=== PATIENT | male | born 1955 ===

== ENCOUNTER 2024-08-09 13:28 | Inpatient (IN) | payer OTHER, SELFPAY ==
[2024-08-09] VITALS (7 sets, daily range): BP systolic 111–164; BP diastolic 68–82; PULSE 62–84; RESP 16–20; TEMP 36.2; O2SAT 94–98; BMI 31.1
--- NOTE | ~2024-08-09 | XR_ITS ---
EXAMINATION: XR CHEST CLINICAL INFORMATION: weakness COMPARISON: None available. TECHNIQUE: AP view of the chest was obtained. FINDINGS: Mildly elevated left hemidiaphragm, with mild left base scarring/atelectasis. The cardiac, hilar, and mediastinal contours are normal. The lungs are otherwise clear bilaterally. Low lung volumes. No pneumothorax or effusion. No focal osseous or soft tissue abnormality. Degenerative changes in the shoulder joints and spine. XR/XR chest 1V IMPRESSION: 1. Mildly elevated left hemidiaphragm with mild left base scarring/atelectasis. Low lung volumes. Otherwise, no active pulmonary disease. Electronically signed by: Alexander Miramontes MD 08/09/2024 02:30 PM EDT RP
--- NOTE | ~2024-08-09 | XR_ITS ---
EXAMINATION: XR FOOT, RIGHT CLINICAL INFORMATION: redness, swelling, fresh amputation COMPARISON: 08/03/2016. TECHNIQUE: AP, lateral, and oblique views of the right foot. FINDINGS: Limited exam due to suboptimal positioning (patient was unable to tolerate). Resection of the second and third digits at the MTP levels. Blunting of the second and third metatarsal heads, likely postsurgical. Healed angulated fractures of the fourth and fifth metatarsals. No acute fracture or dislocation. No suspicious bone lesion. Early Charcot appearing joint involving the midfoot with spurring, joint space narrowing, sclerosis, and mild fragmentation. There is a moderate-sized plantar and small dorsal calcaneal spur. There is soft tissue swelling at the resection sites, and along the dorsum of the forefoot. There are vascular calcifications in the soft tissues. No soft tissue emphysema. XR/XR foot RT min 3V IMPRESSION: 1. Post operative resection of the second and third digits at the MTP levels. No definite acute radiographic changes of osteomyelitis. 2. Healed angulated fractures fourth and fifth metatarsals. 3. Early Charcot changes of the midfoot. Electronically signed by: Alexander Miramontes MD 08/09/2024 02:36 PM EDT
--- NOTE | ~2024-08-09 | XR_ITS ---
CLINICAL HISTORY: post op infection r o osteo 2 view right foot Comparison: CR/PA/SR - XR FOOT RT MIN 3V - 08/09/24 14:14 EDT Findings: No fractures or dislocations. Extensive midfoot osteoarthritis with midfoot collapse. Multiple subluxations are present. No ankle effusion. No radiopaque foreign body. Vascular calcifications are present. IMPRESSION: 1. No acute findings. 2. Charcot arthropathy. This document has been electronically signed by: Arias Alejandro MD on 08/15/2024 17:50:54
--- NOTE | 2024-08-09 14:05 | ED_ITS ---
HPI - General Adult General Chief complaint: Behavioral Concerns Stated complaint: Sec 12, 10mg versed given, aggressive/combative Time Seen by Provider: 08/09/24 13:45 Source: EMS and old records reviewed Limitations: altered mental status History of Present Illness ED Provider: BALJIT GUAMAN narrative: 69 yo male with PMH of DM, hypothyroidism, cognitive impairment, dysphagia, HLD, deperssion, BRENNA, charcot's joint both feet who has been at [facility] I suspect post his amputation - it is unclear where this was done. He reportedly was aggressive and agitated threatening staff at this time his foot wound is infected appearing, he has a dow in place. Due to his agitation EMS gave 10mg IM versed en route. He really isn't able to participate in exam at all. MD complaint: agitation Onset (ago): day(s) (1) Radiation: non-radiation Severity: moderate Relieving factors: none Exacerbating factors: none Associated symptoms: denies other symptoms Treatments prior to arrival: other (IM versed) Related Data Home Medications ?Medication ?Instructions ?Recorded ?Confirmed Lactobacillus rhamnosus GG 10 1 cap PO BID 08/09/24 08/09/24 billion cell capsule (Culturelle) acetaminophen 325 mg tablet 650 mg PO Q6H PRN pain or fever 08/09/24 08/09/24 amitriptyline 50 mg tablet 50 mg PO BEDTIME 08/09/24 08/09/24 aspirin 81 mg capsule 81 mg PO DAILY 08/09/24 08/09/24 bupropion HCl 300 mg 24 hr tablet, 300 mg PO QAM 08/09/24 08/09/24 extended release calcium carbonate (Calcium 600) 600 mg PO BID 08/09/24 08/09/24 ferrous sulfate 325 mg (65 mg 325 mg PO DAILY 08/09/24 08/09/24 iron) tablet gabapentin 800 mg tablet 800 mg PO BID 08/09/24 08/09/24 insulin glargine 100 unit/mL (3 26 unit subcut BEDTIME 08/09/24 08/09/24 mL) subcutaneous pen (Lantus Solostar U-100 Insulin) lamotrigine 100 mg tablet 100 mg PO BID 08/09/24 08/09/24 levothyroxine 50 mcg tablet 50 mcg PO DAILY 08/09/24 08/09/24 meloxicam 15 mg tablet 15 mg PO DAILY 08/09/24 08/09/24 miconazole nitrate 2 % topical 1 appl topical BID 08/09/24 08/09/24 ointment rosuvastatin 20 mg tablet 20 mg PO DAILY 08/09/24 08/09/24 sennosides 8.6 mg tablet (senna) 8.6 mg PO DAILY PRN Constipation 08/09/24 08/09/24 sodium phosphates 19 gram-7 118 ml FL DAILY PRN Constipation 08/09/24 08/09/24 gram/118 mL enema (Fleet Enema) thiamine HCl (vitamin B1) 100 mg 100 mg PO DAILY 08/09/24 08/09/24 tablet trazodone 50 mg tablet 25 mg PO BID 08/09/24 08/09/24 trazodone 50 mg tablet 50 mg PO BEDTIME 08/09/24 08/09/24 Allergies Allergy/AdvReac Type Severity Reaction Status Date / Time No Known Allergies Allergy Verified 08/09/24 13:58 Review of Systems 2 Review of Systems: ROS unable to be obtained due to altered mental status [facility] Past Medical History Source: old records reviewed Medical History Hypothyroidism Amputation toe Charcot joint of ankle Cognitive impairment Hyperlipidemia Diabetes Social History Social History Alcohol intake: never Physical Exam ED Vital Signs: Vital Signs - 24 hr 08/12/24 03:29 08/12/24 13:28 Temperature 97.6 F 98.1 F Pulse Rate 74 66 Respiratory Rate 12 17 Blood Pressure 138/55 L 143/69 H Pulse Oximetry 93 96 Oxygen Delivery Method Room Air Room Air BMI result Body Mass Index 31.1 Appearance: Somnolent. No acute distress. Eyes: Pupils equal, round and reactive to light. ENT: Pharynx normal. Neck: Normal inspection. Neck supple. CVS: Normal heart rate and rhythm. Pulses normal. Respiratory: No respiratory distress. Breath sounds normal. Abdomen: Soft and nontender. Skin: Skin warm and dry. Normal skin color. Extremities: No lower extremity edema. 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 He has been refusing care and medications. She notes he wanted hospice. She is going to come down and sign a MOLST and we will involve CM and hospice. She was trying to work on this with [facility]. She was not even aware he was sent to our facility today 08/09/2024 at 18:56 hours,Dr. Ajay Horton's note Continue physician observation I assumed care of this patient from my colleague at 17:00 hours. The patient's had is the patient's healthcare proxy and the wants to pursue hospice care at this point. I did fill out a MOLST form with the and the patient was a DNR/ DNI/comfort measures only. The patient has been seen by case management. Case management states that the patient's care facility will not accept him back since they are unable to manage him and secondary to his violent outburst.. Case management is going to assist the in getting [facility] and a hospice referral. The patient will need to stay in the emergency department until these steps can be accomplished. The patient is agitated, he seems to be hallucinating and thinks that people are on his property. He believes that his is . Therefore I ordered Haldol 5 mg IV, Ativan 1 mg IV and Benadryl 50 mg IV. The plan will be to use the IV medications to help control his agitation and his behavior. Also, the patient can get IV pain medications if he appears to be in pain.Patient will remain in the emergency department until detention hospice disposition can be obtained. 4:55pm: Physicians observation continued. Patient is not any distress. Patient awaiting hospice detention disposition. Reevaluation(s) Reevaluation #1: 1515-Hospice met with patient and patient does not qualify for hospice level of care. I spoke to the and she is agreeable. I spoke to case management. They will plan to have the patient re-evaluated by Physical therapy and discharged back to [facility] if they accept the patient. I did discuss with the that she should have a goals of care meeting at the facility with a provider there. She is interested in palliative care. I asked Sondra LOZANO to verify patient medications. I cancelled the ENERGY DIRECTOR orders. Medications Administered Generic Name Dose Route Start Last Admin Trade Name Freq PRN Reason Stop Dose Admin Docusate Sodium 100 mg 08/09/24 21:00 08/11/24 20:29 Docusate Sodium 100 Mg Capsule PO 100 mg BEDTIME KENNY Administration Discontinued Medications Generic Name Dose Route Start Last Admin Trade Name Freq PRN Reason Stop Dose Admin Diphenhydramine HCl 50 mg 08/09/24 18:55 08/09/24 19:04 Diphenhydramine Hcl 50 Mg/Ml Vial IVPUSH 08/09/24 18:56 50 mg ONCE STA Administration Haloperidol Lactate 5 mg 08/09/24 18:55 08/09/24 19:04 Haloperidol Lactate 5 Mg/Ml Vial IVPUSH 08/09/24 18:56 5 mg ONCE ONE Administration Piperacillin Sod/Tazobactam 50 mls @ 100 mls/hr 08/09/24 14:07 08/09/24 15:39 Sod 3.375 gm/ Sodium Chloride IV 08/09/24 14:36 Infused ONCE ONE Infusion Levofloxacin 500 mg in 100 mls @ 100 mls/hr 08/09/24 15:47 08/09/24 16:56 Levaquin IV 08/09/24 16:46 Not Given ONCE ONE Lorazepam 1 mg 08/09/24 18:55 08/09/24 19:04 Lorazepam 2 Mg/Ml Vial IVPUSH 08/09/24 18:56 1 mg STAT STA Administration Medical Decision Making Medical Decision Making MDM Narrative: 69 yo male with PMH of DM, hypothyroidism, cognitive impairment, dysphagia, HLD, deperssion, BRENNA, charcot's joint both feet , code status DNR - he comes in today after being at [facility] for post operative R 2nd/3rd toe amputations he reportedly was very angry today and was yelling to take people out at facility. He was ramming his wheelchair at things - no head trauma reported at this time labs, xray of foot that is dehisced yellow drainage and red - infl markers IV zosyn. Differential Diagnosis Differential Diagnoses: The differential diagnosis associated with the presentation includes toxic or metabolic encephalopathy, foot wound, cognitive impairment Admission/Observation Consideration of admission/observation: Escalation of care including admission/observation considered observation started for case management and hospice. Consult Healthcare Provider Management of the patient was discussed with: Blacksmith Apprentice Lab Data MDM Lab Attestation statement: I reviewed the patient's lab results. 08/09/24 14:40 08/09/24 14:40 Labs: Lab Results 08/09/24 08/09/24 08/09/24 Range/Units 14:39 14:40 14:41 WBC 9.5 (4.8-10.8) X10*3/uL RBC 3.97 L (4.60-5.80) X10*6/uL Hgb 10.7 L (14.0-18.0) g/dl Hct 33.2 L (42.0-52.0) % MCV 83.6 (80.0-98.0) fL MCH 27.0 (27.0-33.0) pg MCHC 32.2 (31.0-36.0) g/dl RDW 14.5 (11.0-16.0) % Plt Count 318 (160-400) X10*3/uL MPV 9.8 (9.4-12.4) fL Immature Gran % (Auto) 0.3 (0.0-0.4) % Neut % (Auto) 70.9 (45-73) % Lymph % (Auto) 17.9 L (20-40) % [place] % (Auto) 5.0 (2-11) % Eos % (Auto) 5.4 H (0-4) % Baso % (Auto) 0.5 (0-2) % Lymph # (Auto) 1.7 (1.2-4.9) X10*3/uL [place] # (Auto) 0.5 (0.1-1.2) X10*3/uL Eos # (Auto) 0.5 H (0.0-0.4) X10*3/uL Baso # (Auto) 0.1 (0.0-0.2) X10*3/uL Abs Immat Gran (auto) 0.03 (0.00-0.03) X10*3/uL Absolute Neuts (auto) 6.7 (2.0-8.3) x10*3/uL Absolute Nucleated RBC 0.000 (0.0-0.012) X10*3/uL Nucleated RBC % (auto) 0.0 (0.0-0.2) /100WBC ESR 39 H (0-15) MM/HR VBG pH (7.32-7.43) VBG pCO2 mmHg VBG pO2 mmHg VBG HCO3 (22-26) mmol/L VBG O2 Saturation % VBG Base Excess mmol/L Sodium 144 (135-145) mmol/L Potassium 4.1 (3.3-5.1) mmol/L Chloride 108 (96-108) mmol/L Carbon Dioxide 30 H (22-29) mmol/L Anion Gap 10 L (12-20) BUN 13 (9-16) mg/dL Creatinine 0.70 (0.5-1.4) mg/dL Estim Creat Clear Calc 127.7 Estimated GFR > 60 Random Glucose 83 (60-115) mg/dL Lactic Acid 0.8 (0.5-2.0) mmol/L Calcium 9.4 (8.4-10.2) mg/dL Magnesium 1.9 (1.6-2.6) mg/dL Total Bilirubin 0.3 (0.0-1.0) mg/dL Direct Bilirubin 0.2 (0.0-0.5) mg/dL AST 27 (5-37) U/L ALT 10 (0-40) U/L Alkaline Phosphatase 87 (39-117) U/L Ammonia 25 (13-55) umol/L C-Reactive Protein 0.84 H (< or = 0.50) mg/dL B-Natriuretic Peptide 68 (<100) pg/mL Total Protein 6.6 (6.5-8.0) g/dL Albumin 3.7 (3.5-5.0) g/dL Procalcitonin 0.04 ng/mL Urine Color Urine Appearance Urine pH (5.0-9.0) Ur Specific [place] (1.005-1.025) Urine Protein (Neg-Trace) mg/dL Urine Glucose (UA) (Negative) mg/dL Urine Ketones (Negative) mg/dL Urine Blood (Negative) Urine Nitrite (Negative) Ur Leukocyte Esterase (Negative) Urine RBC (0-2) /HPF Urine WBC (0-5) /HPF Ur Squamous Epith Cells (0-2) /HPF Other Crystals Urine Bacteria (None Seen) Hyaline Casts (0-2) /LPF Influenza Type A (PCR) NEGATIVE (Negative) Influenza Type B (PCR) NEGATIVE (Negative) RSV RNA Qual (PCR) NEGATIVE (Negative) SARS-CoV-2 RNA (RT-PCR) POSITIVE A (Negative) 08/09/24 08/09/24 Range/Units 14:50 14:59 WBC (4.8-10.8) X10*3/uL RBC (4.60-5.80) X10*6/uL Hgb (14.0-18.0) g/dl Hct (42.0-52.0) % MCV (80.0-98.0) fL MCH (27.0-33.0) pg MCHC (31.0-36.0) g/dl RDW (11.0-16.0) % Plt Count (160-400) X10*3/uL MPV (9.4-12.4) fL Immature Gran % (Auto) (0.0-0.4) % Neut % (Auto) (45-73) % Lymph % (Auto) (20-40) % [place] % (Auto) (2-11) % Eos % (Auto) (0-4) % Baso % (Auto) (0-2) % Lymph # (Auto) (1.2-4.9) X10*3/uL [place] # (Auto) (0.1-1.2) X10*3/uL Eos # (Auto) (0.0-0.4) X10*3/uL Baso # (Auto) (0.0-0.2) X10*3/uL Abs Immat Gran (auto) (0.00-0.03) X10*3/uL Absolute Neuts (auto) (2.0-8.3) x10*3/uL Absolute Nucleated RBC (0.0-0.012) X10*3/uL Nucleated RBC % (auto) (0.0-0.2) /100WBC ESR (0-15) MM/HR VBG pH 7.34 (7.32-7.43) VBG pCO2 57 mmHg VBG pO2 28 mmHg VBG HCO3 31 H (22-26) mmol/L VBG O2 Saturation 31.0 % VBG Base Excess 5.0 mmol/L Sodium (135-145) mmol/L Potassium (3.3-5.1) mmol/L Chloride (96-108) mmol/L Carbon Dioxide (22-29) mmol/L Anion Gap (12-20) BUN (9-16) mg/dL Creatinine (0.5-1.4) mg/dL Estim Creat Clear Calc Estimated GFR Random Glucose (60-115) mg/dL Lactic Acid (0.5-2.0) mmol/L Calcium (8.4-10.2) mg/dL Magnesium (1.6-2.6) mg/dL Total Bilirubin (0.0-1.0) mg/dL Direct Bilirubin (0.0-0.5) mg/dL AST (5-37) U/L ALT (0-40) U/L Alkaline Phosphatase (39-117) U/L Ammonia (13-55) umol/L C-Reactive Protein (< or = 0.50) mg/dL B-Natriuretic Peptide (<100) pg/mL Total Protein (6.5-8.0) g/dL Albumin (3.5-5.0) g/dL Procalcitonin ng/mL Urine Color Dark Yellow Urine Appearance Turbid Urine pH 5.0 (5.0-9.0) Ur Specific [place] 1.025 (1.005-1.025) Urine Protein 100 (2+) H (Neg-Trace) mg/dL Urine Glucose (UA) Negative (Negative) mg/dL Urine Ketones 15 (Negative) mg/dL Urine Blood Large (3+) H (Negative) Urine Nitrite Positive H (Negative) Ur Leukocyte Esterase Large (3+) H (Negative) Urine RBC >20 H (0-2) /HPF Urine WBC >50 H (0-5) /HPF Ur Squamous Epith Cells 6-10 (0-2) /HPF Other Crystals Present Urine Bacteria 4+ (None Seen) Hyaline Casts 11-20 (0-2) /LPF Influenza Type A (PCR) (Negative) Influenza Type B (PCR) (Negative) RSV RNA Qual (PCR) (Negative) SARS-CoV-2 RNA (RT-PCR) (Negative) Independent Interpretation I performed an independent interpretation of an: EKG and Plain X-Ray (no abnormal finding) Interpretation: Rate: 66 Rhythm: NSR 1st degree AVB [place]: left Normal P waves. 1st degree AVB Normal QRS complex. ST T wave : flat t waves inferior but no JESSIKA qTC: 434 prior studies: no prior The study has been interpreted contemporaneously by me. . Radiology Impression Discussion of test interpretation with radiology: I have reviewed the radiologist's reading. Discharge Plan Discharge Clinical Impression: Encephalopathy, Acute UTI, Dehiscence of surgical wound Patient Disposition: Still a Patient Prescriptions: No Action sennosides [senna] 8.6 mg Tablet 8.6 mg PO DAILY PRN (Reason: Constipation) acetaminophen 325 mg Tablet 650 mg PO Q6H MDD 3g PRN (Reason: pain or fever) trazodone 50 mg tablet 50 mg PO BEDTIME trazodone 50 mg tablet 25 mg PO BID meloxicam 15 mg tablet 15 mg PO DAILY thiamine HCl (vitamin B1) 100 mg Tablet 100 mg PO DAILY amitriptyline 50 mg tablet 50 mg PO BEDTIME calcium carbonate [Calcium 600] 600 mg calcium (1,500 mg) Tablet 600 mg PO BID gabapentin 800 mg tablet 800 mg PO BID miconazole nitrate 2 % Ointment 1 appl TOPICAL BID Rx Instructions: apply to scrotum levothyroxine 50 mcg tablet 50 mcg PO DAILY ferrous sulfate 325 mg (65 mg iron) Tablet 325 mg PO DAILY Fleet Enema 19-7 gram/118 mL Enema 118 ml FL DAILY PRN (Reason: Constipation) Culturelle 10 billion cell Capsule 1 cap PO BID lamotrigine 100 mg tablet 100 mg PO BID rosuvastatin 20 mg tablet 20 mg PO DAILY bupropion HCl 300 mg tablet extended release 24 hr 300 mg PO QAM insulin glargine [Lantus Solostar U-100 Insulin] 100 unit/mL (3 mL) insulin pen 26 unit subcut BEDTIME aspirin 81 mg Capsule 81 mg PO DAILY Print Language: Japanese
--- NOTE | 2024-08-09 14:05 | ECG_ITS ---
Test Reason : CHECK QTC Blood Pressure : */* mmHG Vent. Rate : 66 BPM Atrial Rate : 66 BPM P-R Int : 224 ms QRS Dur : 94 ms QT Int : 414 ms P-R-T Axes : 46 -14 18 degrees QTcB Int : 434 ms Sinus rhythm with 1st degree A-V block Low voltage QRS Borderline ECG No previous ECGs available Referred By: Nolvia Dorsey Electronically Signed By: EVELINE BARRAZA MD
[2024-08-09 14:51] LABS: MANUAL DIFF FLAG NO
[2024-08-09 14:53] LABS: Basophils Absolute Auto 0.1 X10*3/uL (0.0-0.2); Basophils Percent Auto 0.5 % (0-2); Eosinophils Absolute Auto 0.5 X10*3/uL (0.0-0.4); Eosinophils Percent Auto 5.4 % (0-4); Hematocrit 33.2 % (42.0-52.0); Hemoglobin 10.7 g/dl (14.0-18.0); Imm Gran Abs Auto 0.03 X10*3/uL (0.00-0.03); Imm Gran Pct Auto 0.3 % (0.0-0.4); Lymphocytes Absolute Auto 1.7 X10*3/uL (1.2-4.9); Lymphocytes Percent Auto 17.9 % (20-40); Mean Corpuscular HGB Conc 32.2 g/dl (31.0-36.0); Mean Corpuscular Volume 83.6 fL (80.0-98.0); Mean Platelet Volume 9.8 fL (9.4-12.4); Monocytes Absolute Auto 0.5 X10*3/uL (0.1-1.2); Neutrophils Absolute Auto 6.7 x10*3/uL (2.0-8.3); Neutrophils Percent Auto 70.9 % (45-73); Platelet Count 318 X10*3/uL (160-400); Red Blood Count 3.97 X10*6/uL (4.60-5.80); Red Cell Distribution Width 14.5 % (11.0-16.0); White Blood Count 9.5 X10*3/uL (4.8-10.8)
[2024-08-09 14:55] LABS: Venous Blood Gas Refer to POC result
[2024-08-09 14:56] LABS: VBG HCO3 31 mmol/L (22-26); VBG pCO2 57 mmHg; VBG pH 7.34 (7.32-7.43); VBG pO2 28 mmHg
[2024-08-09 14:57] LABS: Ammonia 25 umol/L (13-55)
[2024-08-09] MEDS: Piperacillin Sodium/Tazobactam 3.375 GM in 0.9 % Sodium Chloride 50 ML IV (15:03)
[2024-08-09 15:04] LABS: Lactic Acid 0.8 mmol/L (0.5-2.0)
[2024-08-09 15:10] LABS: Appearance Urine Turbid; Color Urine Dark Yellow; Glucose Urine UA Negative (Negative); Leukocyte Esterase Urine Large (3+) (Negative); Nitrite Urine Positive (Negative); Specific Gravity - Urine 1.025 (1.005-1.025); UMIC TRIGGER UACC YES; Urine Blood Large (3+) (Negative); Urine Ketones 15 mg/dL (Negative); Urine Protein 100 (2+) mg/dL (Neg-Trace)
[2024-08-09 15:11] LABS: B Type Natriuretic Peptide 68 pg/mL (<100)
[2024-08-09 15:12] LABS: Alanine Aminotransferase 10 U/L (0-40); Albumin Level 3.7 g/dL (3.5-5.0); Alkaline Phosphatase 87 U/L (39-117); Anion Gap 10 (12-20); Aspartate Amino Transferase 27 U/L (5-37); Bilirubin Direct 0.2 mg/dL (0.0-0.5); Bilirubin Total 0.3 mg/dL (0.0-1.0); Blood Urea Nitrogen 13 mg/dL (9-16); C Reactive Protein 0.84 mg/dL (< or = 0.50); Calcium 9.4 mg/dL (8.4-10.2); Carbon Dioxide 30 mmol/L (22-29); Chloride 108 mmol/L (96-108); Creatinine Clr Calc Pharmacy 127.7; Estimated Glomerular Filt Rate > 60; Glucose Random 83 mg/dL (60-115); Magnesium 1.9 mg/dL (1.6-2.6); Potassium 4.1 mmol/L (3.3-5.1); Sodium 144 mmol/L (135-145); Total Protein 6.6 g/dL (6.5-8.0)
[2024-08-09 15:26] LABS: Procalcitonin 0.04 ng/mL
[2024-08-09 15:27] LABS: Erythrocyte Sedimentation Rate 39 MM/HR (0-15)
[2024-08-09 15:41] LABS: Bacteria Urine 4+ (None Seen); Other Crystals Urine Present; RBC Urine >20 /HPF (0-2); UACC Culture Trigger YES; WBC Urine >50 /HPF (0-5)
[2024-08-09 15:47] LABS: Influenza A PCR NEGATIVE (Negative); Influenza B PCR NEGATIVE (Negative); Resp Syncy Virus RNA Qual PCR NEGATIVE (Negative); SARS COV2 PCR INHOUSE POSITIVE (Negative)
--- NOTE | 2024-08-09 16:56 | PC.NURSE ---
levofloxacin not given - per Dr. Dorsey hold on abx.
[2024-08-09] MEDS: diphenhydrAMINE HCL 50 MG/ML VIAL IVPUSH (19:04)
[2024-08-09] MEDS: LORazepam 2 MG/ML VIAL 1 MG IVPUSH (19:04)
[2024-08-09] MEDS: Haloperidol Lactate 5 MG/ML VIAL IVPUSH (19:04)
--- NOTE | 2024-08-09 19:10 | PC.NURSE ---
Pt. medicated because of agitation and delirium, informed the family whom is at bedside that pt. will be monitored and plan of care provided.
--- NOTE | 2024-08-09 19:13 | MHC.CM.ED ---
Pt arrived from [facility] on a section 12 for increasing aggression and threatening behaviors. He was at [facility] for STR. Pt is confused at baseline. He has been refusing all medications. Currently thinks he is home. Yelling and swearing at staff. Trying to get OOB. Per medical record from [facility], HCP is invoked. HCP is not on file. HCP/ Quiana Ponce ([phone]). Per medical record from [facility], patient is a DNR/DNI. is requesting hospice in a facility, as she cannot care for him. . Quiana requests patient be made PIPEMAN. Molst completed with invoked HCP Quiana and . states there are no funds for LTC. Referral made to [facility] financial services to complete MH application. CM stressed importance of obtaining needed documents JAVIER, as patient will not be able to be placed in LTC without a payor source. Invoked HCP/ is aware that patient will not be admitted to hospital as he does not meet inpatient criteria. Referral made to [facility]. Referral to [facility] for informational meeting. Unsure at this time if [facility] will accept patient back to facility
--- NOTE | 2024-08-09 20:12 | PHA.MEDREC ---
Addendum entered by Jenaro Arriola [facility] 08/09/24 20:16: med rec reviewed Original Note: Pharmacy Consult ? Medication Reconciliation Pharmacy has completed the medication reconciliation. Used list from [facility].
--- NOTE | 2024-08-09 22:46 | PC.NURSE ---
Report given to MARTA Jacob.
--- NOTE | 2024-08-10 00:47 | PC.NURSE ---
this rn assumed care at 2300. pt resting in stretcher, noted to be 80% on room air, per , place pt on oxymax veronique to pt mouth breathing. pt sating 100% on oxymax. pt has sitter in place for safety. no hospital beds available at this time, pt given GOSPEL SINGER blanket.
[2024-08-10 00:48] VITALS: PULSE 65; RESP 17; O2SAT 100
[2024-08-10 01:40] VITALS: BP 146/76; PULSE 61; RESP 12; O2SAT 94
--- NOTE | 2024-08-10 02:38 | PC.NURSE ---
pt placed onto hospital bed for comfort at this time, international accounting manager remains in place as well as 1:1 sitter.
[2024-08-10 06:00] VITALS: PULSE 63; RESP 20; O2SAT 98
--- NOTE | 2024-08-10 06:34 | PC.NURSE ---
pt remains resting in hospital bed, sating 99% on oxy max at this time, pt does not appear to be in any pain at this time. sitter at bedside.
--- NOTE | 2024-08-10 12:00 | MHC.CM.ED ---
Patient remains in ER. [facility] is reaching out to patient's . Waiting to hear plan from agency. Continue to monitor for d/c needs.
--- NOTE | 2024-08-10 12:17 | PC.NURSE ---
Assumed care of pt at 0700. Pt resting in bed quietly, respirations even and unlabored, no increased wob/sob noted. Pt denies cp/sob/n/v/d 1:1 sitter at bedside for safety. Call wu within reach, all needs met at this time.
--- NOTE | 2024-08-10 13:37 | MHC.EDTECH ---
pt requested fluids, with verbal orders from , gingerale given to pt at this time
--- NOTE | 2024-08-10 14:51 | PC.NURSE ---
This RN spoke with pts on phone, updated on plan of care.
[2024-08-10 15:48] VITALS: RESP 16
[2024-08-10] MEDS: Docusate Sodium 100 MG CAPSULE PO (21:41)
[2024-08-11 02:05] VITALS: BP 98/60; PULSE 73; RESP 12; TEMP 36.4; O2SAT 96
[2024-08-11 06:38] VITALS: BP 143/74; PULSE 75; RESP 11; TEMP 36.7; O2SAT 95
--- NOTE | 2024-08-11 08:45 | MHC.CM.ED ---
Addendum entered by Nara Mitchell 08/11/24 11:20: Copy of HCP and MOLST requested to be sent to CM via fax from [facility]. Original Note: Patient remains in ER. Plan is for [facility] to assess patient bedside today. Continue to monitor for d/c needs.
--- NOTE | 2024-08-11 09:43 | PC.NURSE ---
Pt will be transitioning to ED Overflow unit. Spoke with RN Blanca for RN to RN report. Blanca given opportunity for questions and all questions answered to satisfaction. Pt will be brought to Overflow via transport. Transport contacted via [employer].
[2024-08-11 10:33] VITALS: BP 117/63; PULSE 76; RESP 18; TEMP 36.8; O2SAT 95
--- NOTE | 2024-08-11 11:12 | PC.NURSE ---
Pt calm, resting in room; airborn/droplet precautions instituted for + Covid results; pt asymptomatic; denies pain at this time
--- NOTE | 2024-08-11 12:24 | MHC.CM.ED ---
Received telephone call from Santosh psychosocial rehabilitation counselor at [facility]. Copy of HCP with invocation sent via fax. Santosh verifies patient was only there for STR and that patient was close to his baseline just prior to being transferred to the ER. Financials were never provided by patient's to indicate if private pay or [facility] would be needed because it short term rehab with returning home was always the plan. Spoke with [facility]. They are looking through clinicals on patient. At this time, they are not sure that patient would qualify for hospice. They are continuing to examine clinical info. Continue to monitor for d/c needs,
[2024-08-11 12:36] VITALS: BP 124/63; PULSE 82; RESP 18; TEMP 36.3; O2SAT 91
[2024-08-11 14:00] VITALS: BP 122/67; PULSE 75; RESP 18; TEMP 36.6; O2SAT 95
--- NOTE | 2024-08-11 16:06 | MHC.CM.ED ---
CM reviewed previous CM note with Dr. Dorsey, including concerns regarding qualification for hospice. Dr. Dorsey aware that hospice will be in tomorrow. Pt is currently [facility]. Will re-evaluate plan of care with /invoked HCP after hospice evaluation. CM following.
--- NOTE | 2024-08-11 18:18 | PC.NURSE ---
Pt remains confused, easily redirectable; pt has been pleasant and cooperative with care throughout the day; vss; dressing to L foot replaced; pt reports back pain but has refused all pain medication at this time; pt repositioned for comfort
[2024-08-11] MEDS: Docusate Sodium 100 MG CAPSULE PO (20:29)
[2024-08-12 03:29] VITALS: BP 138/55; PULSE 74; RESP 12; TEMP 36.4; O2SAT 93
--- NOTE | 2024-08-12 05:48 | PC.NURSE ---
Pts , Quiana, called for an update. Update provided. Quiana states will be visiting with patient later on in the day, unsure of the time as she is working today. Pt made aware.
--- NOTE | 2024-08-12 08:51 | PC.NURSE ---
Assumed care of patient at 0700. Pt alert and cooperative. He denies pain or or other needs. He ate approx 90% of breakfast. Dsg C/D/I to R foot. 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 Pt remains on precautions...
--- NOTE | 2024-08-12 09:40 | PC.NURSE ---
Pt given full bed bath, turned and repositioned. Parker care provided. Mepilex applied to stage II to coccyx, stg II to L lateral malleolus and stg II to L heel. Pt offloaded to R side, heels floated. Barrier cream applied to macerated scrotum and intact perirectal area. He continues to be cooperative and denies pain or other concern at this time. Pt transferred into bed 4 for enhanced covid isolation.
[2024-08-12 13:28] VITALS: BP 143/69; PULSE 66; RESP 17; TEMP 36.7; O2SAT 96
--- NOTE | 2024-08-12 13:40 | MHC.CM.PN ---
[facility] DRILLING FLUIDS SPECIALIST IN TO EVAL PT. PER [facility], PT IS NOT ELIGIBLE FOR HOSPICE AT THIS TIME. PA/PROVIDER UPDATED. CM WILL CONTINUE TO FOLLOW. ONCE PA SPEAKS WITH , WILL PLAN FOR A P.T. EVAL FOR A POSSIBLE RETURN TO [facility] AT [facility].
[2024-08-12] MEDS: buPROPion HCl XL 300 MG TAB.ER.24H PO (17:33)
[2024-08-12 19:35] VITALS: BP 142/79; PULSE 76; RESP 18; TEMP 36.4; O2SAT 98
[2024-08-12] MEDS: Insulin Glargine,Hum.rec.anlog 100 UNIT/ML 10 ML VIAL 26 UNIT SUBCUT (21:16)
[2024-08-12] MEDS: traZODone HCL 50 MG TABLET PO (21:16)
[2024-08-12] MEDS: traZODone HCL 25 MG HALFTAB PO (21:17)
[2024-08-12] MEDS: Calcium Carbonate 750 MG TAB.CHEW PO (21:17)
[2024-08-12] MEDS: Doxycycline Monohydrate 100 MG CAPSULE PO (21:17)
[2024-08-12] MEDS: Docusate Sodium 100 MG CAPSULE PO (21:17)
[2024-08-12] MEDS: cephALEXin 500 MG CAPSULE PO (21:17)
[2024-08-12] MEDS: Gabapentin 400 MG CAPSULE 800 MG PO (21:17)
[2024-08-12] MEDS: lamoTRIgine 100 MG TABLET PO (21:18)
[2024-08-12 22:00] VITALS: BP 142/75; PULSE 67; RESP 18; TEMP 36.8; O2SAT 96
[2024-08-12] MEDS: Amitriptyline HCl 50 MG TABLET PO (22:14)
[2024-08-13] MEDS: LORazepam 1 MG TABLET PO (00:06)
--- NOTE | 2024-08-13 00:08 | PC.NURSE ---
Took over care from lashon Ritchie for comfort and medicated for anxiety. No sign of distress.
[2024-08-13 03:19] VITALS: BP 123/67; PULSE 75; RESP 14; TEMP 36.4; O2SAT 95
[2024-08-13] MEDS: Levothyroxine Sodium 50 MCG TABLET PO (06:38)
--- NOTE | 2024-08-13 06:40 | PC.NURSE ---
pt reposition, wound dress changed, emptied dow for 700cc, per care completed. medicated per jul.
[2024-08-13 09:41] VITALS: BP 115/60; PULSE 88; RESP 20; TEMP 36.4; O2SAT 93
[2024-08-13] MEDS: NaPROXEN 500 MG TABLET PO ×2 (09:43→20:19)
[2024-08-13] MEDS: Thiamine HCL 100 MG TABLET PO (09:43)
[2024-08-13] MEDS: Atorvastatin Calcium 80 MG TABLET PO (09:43)
[2024-08-13] MEDS: Ferrous Sulfate 324 MG TABLET.DR PO (09:43)
[2024-08-13] MEDS: traZODone HCL 25 MG HALFTAB PO ×2 (09:43→20:19)
[2024-08-13] MEDS: cephALEXin 500 MG CAPSULE PO ×2 (09:43→20:19)
[2024-08-13] MEDS: Doxycycline Monohydrate 100 MG CAPSULE PO ×2 (09:44→20:19)
[2024-08-13] MEDS: Calcium Carbonate 750 MG TAB.CHEW PO ×2 (09:44→20:19)
[2024-08-13] MEDS: lamoTRIgine 100 MG TABLET PO ×2 (09:44→20:19)
[2024-08-13] MEDS: Aspirin Enteric Coated 81 MG TABLET.DR PO (09:44)
[2024-08-13] MEDS: Gabapentin 400 MG CAPSULE 800 MG PO ×2 (09:44→20:19)
[2024-08-13] MEDS: buPROPion HCl XL 300 MG TAB.ER.24H PO (09:44)
--- NOTE | 2024-08-13 10:49 | PC.NURSE ---
assumed care of patient at 0700, patient sat up and ate breakfast this morning, takes meds whole with water. patient at times is awake and alert, confused at baseline, patient mentation waxes and weans. today he is requesting where his is and why he has not been in to see him. patient reassured that he is being taken care of. VSS. patient linens dry and intact, patient dow in place, patient wound on left foot has clean dry dressing.
--- NOTE | 2024-08-13 11:28 | PC.NURSE ---
patient assisted with phone x2 to call his
--- NOTE | 2024-08-13 12:46 | MHC.CM.PN ---
PT CONTINUES TO BOARD IN ED, AWAITING P.T. EVAL FOR RETURN TO STR. RETURN REFERRAL AND UPDATES SENT TO [facility], AWAITING RESPONSE IF ABLE TO TAKE PT BACK. CM CONTINUES TO FOLLOW.
--- NOTE | 2024-08-13 12:58 | PC.NURSE ---
patient repositioned in bed, sitting up eating lunch. patient consistently using call wu, states he is worried about his marriage and wants to know where his is. patient given reassurance, has been assisted with calling his on the phone.
--- NOTE | 2024-08-13 13:38 | PC.NURSE ---
Report from MARTA Amaro; pt restless, pulling off clothes, trying to climb OOB; when asked why he was climbing, he said I'm ending my life, that's that ; made aware; emotional support provided to pt; pt weepy, saying I'm not worth it ; pt refusing to eat or drink at this time; pt placed near RN station for safety
[2024-08-13] MEDS: OLANZapine 10 MG VIAL IM (14:21)
--- NOTE | 2024-08-13 15:08 | PC.NURSE ---
direct casting operator at bedside for pt safety; pt calmer at this time after IM Xyprexa gv per orders
[2024-08-13 15:09] LABS: Glucose, Whole Blood 146 mg/dL (60-115)
[2024-08-13 15:47] VITALS: BP 138/71; PULSE 73; RESP 18; TEMP 36.2; O2SAT 93
--- NOTE | 2024-08-13 18:06 | PC.NURSE ---
Pt sleeping in room with 1:1 sitter present for safety; vss; pt wakes to physical stimuli
[2024-08-13 18:07] VITALS: BP 124/65; PULSE 65; RESP 14; TEMP 36.2; O2SAT 93
--- NOTE | 2024-08-13 20:04 | PC.NURSE ---
consulted with ED MD Magallanes as multiple notes/comments noted about patient making SI comments and not wanting to live anymore. previously refused to eat/take meds, required IM medication d/t behavior. suggested for pt to receive psychiatric consult prior to considering d/c [facility] to [facility]. MD in agreement. pt currently has a 1;1 sitter. intermittent attempts to get oob to hurt himself. pt states he'd be happier if i hadn't been such an asshole to my family. does express he is sad. currently calm/cooperative, ate pudding and took meds, drank few sips of water then said no im all set.
[2024-08-13] MEDS: traZODone HCL 50 MG TABLET PO (20:19)
--- NOTE | 2024-08-13 20:58 | PC.NURSE ---
Addendum entered by Jamila Alvarez 08/13/24 21:38: while giving patient antibiotics pt initially refused stating if i dont take it will i . educated pt can get really sick and uncomfortable. stated fine i guess i'll take it. took med appropriately. initially refused insulin as well then agreeable. sitter remains at bedside. Original Note: pt ate some of dinner with pct help, poc 154, per MD Magallanes ok to give lantus. also per MD states need change for abx for uti and will order new antibiotic to start tonight.
[2024-08-13] MEDS: Nitrofurantoin Monohyd/M-Cryst 100 MG CAPSULE PO (21:04)
[2024-08-13] MEDS: Insulin Glargine,Hum.rec.anlog 100 UNIT/ML 10 ML VIAL 26 UNIT SUBCUT (21:04)
[2024-08-13] MEDS: Amitriptyline HCl 50 MG TABLET PO (21:04)
[2024-08-13 21:05] LABS: Glucose, Whole Blood 159 mg/dL (60-115)
[2024-08-14 03:04] VITALS: RESP 15
[2024-08-14 06:02] VITALS: BP 145/71; PULSE 76; RESP 16; O2SAT 99
[2024-08-14] MEDS: Levothyroxine Sodium 50 MCG TABLET PO (06:02)
[2024-08-14 06:06] VITALS: TEMP 36.3
--- NOTE | 2024-08-14 06:06 | PC.NURSE ---
pt repositioned to R. side, warm blanket given. took morning meds, had few sips of water and couple spoonfuls of pudding. pt continues to speak to himself. 1:1 sitter at bedside.
[2024-08-14 08:21] VITALS: BP 145/71; PULSE 76; O2SAT 99
--- NOTE | 2024-08-14 08:27 | MHC.CARE ---
Pt's whom is also reportedly also his invoked HCP called this am as she was returning a phone call from Shirley last evening. She reported she did not have any collateral information to add in regard to Jose De Jesus and that the behavior we observed while completing his crisis assessment was close to his baseline. His was informed that Pt would be seen by psychiatry today to formulate the most appropriate disposition. She was informed she would contacted by either psychiatry or the CARE team.
[2024-08-14] MEDS: buPROPion HCl XL 300 MG TAB.ER.24H PO (10:25)
[2024-08-14] MEDS: Nitrofurantoin Monohyd/M-Cryst 100 MG CAPSULE PO ×2 (10:25→21:17)
[2024-08-14] MEDS: traZODone HCL 25 MG HALFTAB PO ×2 (10:25→21:17)
[2024-08-14] MEDS: lamoTRIgine 100 MG TABLET PO ×2 (10:26→21:17)
[2024-08-14] MEDS: Gabapentin 400 MG CAPSULE 800 MG PO ×2 (10:27→21:35)
[2024-08-14] MEDS: NaPROXEN 500 MG TABLET PO ×2 (10:28→21:17)
[2024-08-14] MEDS: Aspirin Enteric Coated 81 MG TABLET.DR PO (10:29)
--- NOTE | 2024-08-14 10:45 | MHC.CARE ---
Per verbal psych consult, Disposition is for Pt to return to the [facility] facility. Messages left for admissions and the DON at [facility]. Case management consult will be put in for Pt to transport back to facility. Pt's and HCP will be contacted.
--- NOTE | 2024-08-14 10:58 | PC.NURSE ---
Pt's right foot/partial toe amputation wound dressing changed. Wound care consulted.
--- NOTE | 2024-08-14 11:22 | PM.PSYCN ---
History of Present Illness Date of Service: 08/14/2024 Chief Complaint: Sec 12, 10mg versed given, aggressive/combative Discussed with referring provider: Yes Sources of Information: patient interviewed, chart reviewed and crisis/core team assessment reviewed HPI Narrative: Mr. Ponce is a 69 year-old male with hx of Dementia (appears AD type) who was brought via EMS from [facility] in [place] due to patient expressing SI. He also apparently has been more combative at times. In the ED, labs included 08/09/24 cbc normocytic anemia (Hgb 10), CMP without electrolyte abnormality, BUN 13, Cr 0.70, creatine clearance 127. UA suggestive of UTI started Bactrim DS. Pt seen in the ED. He is not oriented to place. He tells this customs entry writer he lives here. He thinks we are in [place]. He does know that month is either July or August and able to tell that year is 2024. He does not know why he is here. He does not recall making suicidal statements. His speech has some derailment and at times responses are not related to topic at hand. He is not able to provide much information. He thanks this customs entry writer and says today is going to be a fun day! He does not directly answer question of whether he is sad or suicidal. He does have receptive and expressive aphasia. Medical Evaluation Reviewed: Yes [facility] Medical History Hypothyroidism Amputation toe Charcot joint of ankle Cognitive impairment Hyperlipidemia Diabetes Diagnostics Vital Signs (24Hr): Vital Signs - 24 hr 08/13/24 15:47 08/13/24 18:07 08/14/24 03:04 Temperature 97.1 F 97.1 F Pulse Rate 73 65 Respiratory Rate 18 14 15 Blood Pressure 138/71 124/65 Pulse Oximetry 93 93 Oxygen Delivery Method Room Air Room Air 08/14/24 06:02 08/14/24 06:06 Temperature 97.4 F Pulse Rate 76 Respiratory Rate 16 Blood Pressure 145/71 H Pulse Oximetry 99 Oxygen Delivery Method Room Air BMI result Body Mass Index 31.1 Labs 08/09/24 14:40 08/09/24 14:40 Labs: Laboratory Results - last 48 hr 08/13/24 08/13/24 13:36 20:43 POC Glucose 146 H 159 H Imaging Radiology Impressions: ITS Impressions Foot X-Ray 08/09/24 14:05 IMPRESSION: 1. Post operative resection of the second and third digits at the MTP levels. No definite acute radiographic changes of osteomyelitis. 2. Healed angulated fractures fourth and fifth metatarsals. 3. Early Charcot changes of the midfoot. Electronically signed by: Alexander Miramontes MD 08/09/2024 02:36 PM EDT RP Chest X-Ray 08/09/24 14:06 IMPRESSION: 1. Mildly elevated left hemidiaphragm with mild left base scarring/atelectasis. Low lung volumes. Otherwise, no active pulmonary disease. Electronically signed by: Alexander Miramontes MD 08/09/2024 02:30 PM EDT RP Mental Status Exam Mental Status Exam Narrative: Appearance: wearing hospital gown, fair hygiene, in NAD Behavior: cooperative Psychomotor: no agitation or retardation noted. no tremors. Speech: some mumbles, regular rate/rhythm/volume, spontaneous TP: expressive and receptive aphasia TC: feeling well, thinks he is at home Mood: good Affect: congruent SI: no signs HI: none VH/AH: no signs of psychosis Delusions: none Insight/judgment: impaired x 2. Memory/cog: alert, oriented to year 2024, not sure about month but able to say August or July. Not oriented to situation, nor place. severe underlying cognitive impairments. Medications Medications Current Medications Acetaminophen (Acetaminophen 325 Mg Tablet) 650 mg PO Q6H PRN PRN Reason: pain or fever Amitriptyline HCl (Amitriptyline Hcl 50 Mg Tablet) 50 mg PO BEDTIME [facility] Last Admin: 08/13/24 21:04 Dose: 50 mg Aspirin (Aspirin Enteric Coated 81 Mg Tablet.) 81 mg PO DAILY [facility] Last Admin: 08/14/24 10:29 Dose: 81 mg Atorvastatin Calcium (Atorvastatin Calcium 80 Mg Tablet) 80 mg PO DAILY [facility] Last Admin: 08/14/24 10:31 Dose: Not Given Bupropion HCl (Bupropion Hcl Xl 300 Mg Tab.Er.24h) 300 mg PO DAILY [facility] Last Admin: 08/14/24 10:25 Dose: 300 mg Calcium Carbonate (Calcium Carbonate 750 Mg Tab.Chew) 750 mg PO BID [facility] Last Admin: 03/31/25 10:31 Dose: Not Given Docusate Sodium (Docusate Sodium 100 Mg Capsule) 100 mg PO BEDTIME [facility] Last Admin: 08/13/24 20:59 Dose: Not Given Ferrous Sulfate (Ferrous Sulfate 324 Mg Tablet.Dr) 324 mg PO DAILY [facility] Last Admin: 08/14/24 10:31 Dose: Not Given Gabapentin (Gabapentin 400 Mg Capsule) 800 mg PO BID [facility] Last Admin: 08/14/24 10:27 Dose: 800 mg Insulin Glargine (Insulin Glargine,Hum.Rec.Anlog 100 Unit/Ml 10 Ml Vial) 26 unit SUBCUT BEDTIME [facility] Last Admin: 08/13/24 21:04 Dose: 26 unit Lamotrigine (Lamotrigine 100 Mg Tablet) 100 mg PO BID [facility] Last Admin: 08/14/24 10:26 Dose: 100 mg Levothyroxine Sodium (Levothyroxine Sodium 50 Mcg Tablet) 50 mcg PO DAILY@0600 [facility] Last Admin: 08/14/24 06:02 Dose: 50 mcg Miconazole Nitrate (Miconazole Nitrate 2% Oint 57 Gm Oint...G.) 1 appl TOPICAL BID [facility]; Protocol Last Admin: 08/14/24 10:31 Dose: Not Given Naproxen (Naproxen 500 Mg Tablet) 500 mg PO BID [facility] Last Admin: 08/14/24 10:28 Dose: 500 mg Nitrofurantoin Macrocrystals (Nitrofurantoin Monohyd/M-Cryst 100 Mg Capsule) 100 mg PO BID [facility] Last Admin: 08/14/24 10:25 Dose: 100 mg Senna (Sennosides 8.6 Mg Tablet) 8.6 mg PO DAILY PRN PRN Reason: Constipation Sodium Biphosphate/Sodium Phosphate (Sodium Phosphate,Dickens-Dibasic 133 Ml Enema) 118 ml DC DAILY PRN PRN Reason: Constipation Thiamine HCl (Thiamine Hcl 100 Mg Tablet) 100 mg PO DAILY [facility] Last Admin: 08/14/24 10:31 Dose: Not Given Trazodone HCl (Trazodone Hcl 25 Mg Halftab) 25 mg PO BID [facility] Last Admin: 08/14/24 10:25 Dose: 25 mg Trazodone HCl (Trazodone Hcl 50 Mg Tablet) 50 mg PO BEDTIME [facility] Last Admin: 08/13/24 20:19 Dose: 50 mg Allergies Allergies Allergy/AdvReac Type Severity Reaction Status Date / Time No Known Allergies Allergy Verified 08/09/24 13:58 Assessment & Plan Assessment & Plan (1) Major neurocognitive disorder due to Alzheimer's disease: Status: Acute Code(s): G30.9 - Alzheimer's disease, unspecified; F02.80 - Dementia in other diseases classified elsewhere, unspecified severity, without behavioral disturbance, psychotic disturbance, mood disturbance, and anxiety Plan Mr. Ponce is a 69 year-old male with hx of dementia who was sent from [facility] in [place] initially due to combative behaviors. He had made SI statements. He does not remember these statements. Nor is able to have logical or coherent conversation about his mood. He is not oriented to situation, severe inability to retain new information. no combative while in the ED. He is already on psychotropic medications, including two antidepressant. Will refer to OP providers to adjust if deemed necessary. No need for inpt psych level of care. Total time managing care of this patient today ____ minutes.
--- NOTE | 2024-08-14 12:05 | PC.NURSE ---
Plan to discharge back to [facility]. Evaluated by psych and cleared.
--- NOTE | 2024-08-14 12:16 | MHC.CM.PN ---
Addendum entered by Iza Mcdaniel 08/14/24 12:33: Pts /HCP Quiana was called by this CM and notified of [facility] declining to accept pt back to their facility. Quiana is aware that we have sent the STR referral to local facilities, no current bed offers, and have had to expand referral out further to look across the state for an available bed. Pt having being covid+ is also a barrier in finding pt a rehab bed. Original Note: Pt evaluated by PT, they recommend STR. Pt has been cleared by psych. [facility] is declining to accept pt back to their facility. STR referrals placed, awaiting bed offer.
--- NOTE | 2024-08-14 12:31 | PC.NURSE ---
Per Child Support Agent (Tamara Mcdaniel), [facility] refused to take this patient back to the facility. Searching for a new facility to accept the patient. Dr. Ann & hog worker aware.
[2024-08-14 15:41] VITALS: BP 134/78; PULSE 81; RESP 16; TEMP 37; O2SAT 95
--- NOTE | 2024-08-14 15:43 | MHC.EDTECH ---
This pct assumed care of Patient at 1500 ,vitals taken ,Patient was clean up and reposition in bed .1:1 sitter at bedside .
--- NOTE | 2024-08-14 18:29 | PC.NURSE ---
Patient intermittently pulling at dow catheter, and IV access. IV access removed, okayed [facility]. Patient is cranky, states nothing is bothering me! You all assume everything you Trumper! . Sitter remains at bedside.
[2024-08-14 21:08] VITALS: BP 138/77; PULSE 91; RESP 16; TEMP 36.7; O2SAT 96
[2024-08-14] MEDS: Acetaminophen 325 MG TABLET 650 MG PO (21:16)
[2024-08-14] MEDS: Docusate Sodium 100 MG CAPSULE PO (21:17)
[2024-08-14] MEDS: traZODone HCL 50 MG TABLET PO (21:17)
[2024-08-14] MEDS: Calcium Carbonate 750 MG TAB.CHEW PO (21:17)
[2024-08-14] MEDS: Insulin Glargine,Hum.rec.anlog 100 UNIT/ML 10 ML VIAL 26 UNIT SUBCUT (21:35)
[2024-08-14] MEDS: Amitriptyline HCl 50 MG TABLET PO (21:45)
--- NOTE | 2024-08-14 21:47 | PC.NURSE ---
pt arouses spontaneously. calm, cooperative at this time. A+O to self, states the month is august and that [place] is [place]. tolerated pillsc rushed in applesauce. able to hold nd drink orange juice. no signs of dysphagia. terence and cath care performed. sitter in place. call wu in reach
[2024-08-14 22:27] LABS: Glucose, Whole Blood 120 mg/dL (60-115)
[2024-08-15] VITALS (14 sets, daily range): BP systolic 96–129; BP diastolic 50–78; PULSE 79–104; RESP 13–25; TEMP 36.6–38.8; O2SAT 87–97
--- NOTE | 2024-08-15 00:20 | PC.NURSE ---
right foot surgical wound dressing changed. cleaned with saline. nonadherent pad, gauze pad, and gauze wrap applied. initials on tape. pt tolerated well
[2024-08-15] MEDS: lamoTRIgine 100 MG TABLET PO (08:58)
[2024-08-15] MEDS: Aspirin Enteric Coated 81 MG TABLET.DR PO (08:59)
[2024-08-15] MEDS: buPROPion HCl XL 300 MG TAB.ER.24H PO (08:59)
[2024-08-15] MEDS: Calcium Carbonate 750 MG TAB.CHEW PO (08:59)
[2024-08-15] MEDS: Gabapentin 400 MG CAPSULE 800 MG PO (08:59)
[2024-08-15] MEDS: Levothyroxine Sodium 50 MCG TABLET PO (08:59)
[2024-08-15] MEDS: Atorvastatin Calcium 80 MG TABLET PO (08:59)
[2024-08-15] MEDS: Ferrous Sulfate 324 MG TABLET.DR PO (08:59)
[2024-08-15] MEDS: Nitrofurantoin Monohyd/M-Cryst 100 MG CAPSULE PO (08:59)
[2024-08-15] MEDS: traZODone HCL 25 MG HALFTAB PO (08:59)
[2024-08-15] MEDS: Thiamine HCL 100 MG TABLET PO (08:59)
[2024-08-15] MEDS: NaPROXEN 500 MG TABLET PO (08:59)
[2024-08-15] MEDS: Miconazole Nitrate 2% Oint 57 GM OINT...G. 1 APPL TOPICAL (09:13)
--- NOTE | 2024-08-15 09:20 | PC.NURSE ---
Turned and repositioned in bed, PO meds per jul. Patient declined breakfast at this time. Shutting mouth when offered foot. Ate small bites of pudding and small sips of ping elder.
--- NOTE | 2024-08-15 10:17 | MHC.CM.ED ---
Patient remains in ER. Clinical updates sent to facilities still reviewing patient. Continue to monitor for d/c needs.
--- NOTE | 2024-08-15 10:52 | PC.NURSE ---
Dressing to right foot intact, clean and dry. Dressing changed 08/15/24 by nightstanyaft RN
[2024-08-15] MEDS: cefEPime HCl/D5W 2 GM/50 ML PIGGYBACK IV (17:15)
[2024-08-15] MEDS: Acetaminophen 1,000 MG/100 ML PIGGYBACK 400 MG IV (17:17)
[2024-08-15] MEDS: 0.9 % Sodium Chloride 1,000 ML 999 ML IV (17:18)
[2024-08-15 17:22] LABS: MANUAL DIFF FLAG NO
--- NOTE | 2024-08-15 17:22 | PC.NURSE ---
Pt placed in soft restrained RA and LA due to pulling at wires, IV and dow continuously. Pt very confused, unable to redirect. Sepsis orders followed
[2024-08-15 17:35] LABS: Basophils Absolute Auto 0.1 X10*3/uL (0.0-0.2); Basophils Percent Auto 0.8 % (0-2); Eosinophils Absolute Auto 0.5 X10*3/uL (0.0-0.4); Hematocrit 35.5 % (42.0-52.0); Hemoglobin 11.1 g/dl (14.0-18.0); Imm Gran Abs Auto 0.03 X10*3/uL (0.00-0.03); Imm Gran Pct Auto 0.3 % (0.0-0.4); Lymphocytes Percent Auto 20.7 % (20-40); Mean Corpuscular HGB Conc 31.3 g/dl (31.0-36.0); Mean Corpuscular Hemoglobin 26.6 pg (27.0-33.0); Mean Corpuscular Volume 84.9 fL (80.0-98.0); Monocytes Absolute Auto 0.6 X10*3/uL (0.1-1.2); Monocytes Percent Auto 5.7 % (2-11); Neutrophils Absolute Auto 6.6 x10*3/uL (2.0-8.3); Neutrophils Percent Auto 67.5 % (45-73); Platelet Count 344 X10*3/uL (160-400); Red Blood Count 4.18 X10*6/uL (4.60-5.80); Red Cell Distribution Width 14.7 % (11.0-16.0); White Blood Count 9.8 X10*3/uL (4.8-10.8)
[2024-08-15 17:42] LABS: Alanine Aminotransferase 6 U/L (0-40); Albumin Level 3.8 g/dL (3.5-5.0); Alkaline Phosphatase 83 U/L (39-117); Anion Gap 10 (12-20); Aspartate Amino Transferase 22 U/L (5-37); Bilirubin Total 0.4 mg/dL (0.0-1.0); Blood Urea Nitrogen 19 mg/dL (9-16); Calcium 9.5 mg/dL (8.4-10.2); Carbon Dioxide 28 mmol/L (22-29); Chloride 109 mmol/L (96-108); Estimated Glomerular Filt Rate > 60; Glucose Random 65 mg/dL (60-115); Lipase < 4 U/L (8-78); Magnesium 1.8 mg/dL (1.6-2.6); Potassium 4.4 mmol/L (3.3-5.1); Sodium 143 mmol/L (135-145); Total Protein 6.6 g/dL (6.5-8.0)
[2024-08-15 17:44] LABS: Lactic Acid 1.1 mmol/L (0.5-2.0)
[2024-08-15] MEDS: vancomycin/NS 2,000 MG/500 ML PLAST..BAG 250 MG IV (17:46)
[2024-08-15] MEDS: Ketorolac Tromethamine 15 MG/ML VIAL IVPUSH (18:38)
[2024-08-15 18:43] LABS: Glucose, Whole Blood 65 mg/dL (60-115)
[2024-08-15 18:45] LABS: Appearance Urine Clear; Color Urine Yellow; Glucose Urine UA Negative (Negative); Leukocyte Esterase Urine Trace (Negative); Nitrite Urine Negative (Negative); Specific Gravity - Urine 1.025 (1.005-1.025); UMIC TRIGGER UACC YES; Urine Blood Small (1+) (Negative); Urine Ketones Trace mg/dL (Negative); Urine Protein 100 (2+) mg/dL (Neg-Trace)
--- NOTE | 2024-08-15 18:49 | PC.NURSE ---
blood sugar 65, message sent to provider
[2024-08-15 19:10] LABS: Bacteria Urine 1+ (None Seen); Hyaline Casts Urine 0-2 /LPF (0-2); Squamous Epithelial Cell Urine 0-2 /HPF (0-2); UACC Culture Trigger YES
--- NOTE | 2024-08-15 19:42 | PM.IMHP ---
History of Present Illness Date of Service: 08/15/24 Attending physician on admission: Aimee Grimes Chief Complaint: delirium, sepsis 08/09/24 Per ED proivder's note: 69 yo male with PMH of uncontrolled IDDM, hypothyroidism, cognitive impairment, dysphagia, HLD, deperssion, BRENNA, charcot's joint both feet who has been at [facility] I suspect post his amputation - it is unclear where this was done. He reportedly was aggressive and agitated threatening staff at this time his foot wound is infected appearing, he has a dow in place. Due to his agitation EMS gave 10mg IM versed en route. He really isn't able to participate in exam at all. 08/15/2024 Pt had been waiting in the emergency room for placement. And developed a fever, delirium, tachycardia and hypoglycemia and was transferred to the main emergency room from [facility]. Blood cultures and urine culture were collected. Chest x-ray negative for any acute findings. X-ray of right foot was negative for osteomyelitis but infection suspected patient was started on cefepime and vanco. Patient had to be placed in soft wrist restraints in the emergency room as patient was pulling on Dow catheter. Patient is currently not able to swallow medications or food or fluids. Emergency room asked for hospitalist to admit patient for sepsis. This tech writer was able to speak to patient's spouse by phone and learned that patient had surgery at [facility] approximately 4 weeks prior. Patient had already been in [facility] for rehabilitation noting skin changes in the right toes and patient was no longer able to ambulate and required rehabilitation. Patient developed a urinary tract infection, influenza and COVID while at [facility] and was transferred back to [facility] for uncontrolled diabetes. Patient's toes on right foot developed dry gangrene and patient required surgical intervention for amputation. Patient at that time had stated he did not want any further surgeries for future problems. Patient went back to [facility] for rehabilitation purposes and on August 09 developed worsening agitation and aggressiveness which prompted transfer to emergency room at [facility]. Plan was made with case management to find alternative placement as patient initially presented medically stable and was started on Macrodantin for a positive UA. Urine culture grew Enterobacter and E coli, both susceptible to Macrodantin. Patient has had a chronic Dow placement since May of 2023 due to complications of urinary retention. The catheter was being changed every 30 days prior to hospital admission. Patient has history of UTIs in the past. Patient has been diagnosed with Alzheimer's. Patient is being admitted for sepsis, delirium, suspected infection of right toe amputation site and/or UTI. Patient completed Macrodantin therapy and repeat UA today indicates possible resolve of urinary tract infection diagnosed on August 09. Wound care consult ordered along with speech therapy consult as patient can not currently swallow pills or eat food or drink fluids. Patient noted to be hypoglycemic and D5 1/2 normal saline started. Lantus is held. Sliding scale insulin is every 6 hours. Tylenol suppository provided for lowering of temperature. Plan of care reviewed with healthcare proxy who is patient's spouse and spouse would appreciate daily updates by phone when possible. Review of Systems Review of Systems: Yes Unobtainable due to mental condition (Delirium) [facility] Medical History (Updated 08/15/24 @ 20:31 by MARK Hernandes) Hypothyroidism Amputation toe Charcot joint of ankle Cognitive impairment Hyperlipidemia Diabetes Cognitive capacity: Delirium present Functional capacity: bed bound Social History Alcohol intake: never Smoked in Last 30 Days: No Use of substances other than those prescribed or required for medical reasons: Refusing to respond Advance Directives: No Advance Directives Information Provided: Yes Do you have a plan to hurt others: Vague Ebola Risk: Travel/Contact With Anyone From Affected Area/s: No Has Patient Experienced Ebola Symptoms: No Meds Allergies Allergy/AdvReac Type Severity Reaction Status Date / Time No Known Allergies Allergy Verified 08/09/24 13:58 Active Medications: Current Medications Acetaminophen (Acetaminophen Supp 650 Mg Supp.Rect) 650 mg VT ONCE ONE Stop: 08/15/24 23:01 Acetaminophen (Acetaminophen 325 Mg Tablet) 650 mg PO Q6H PRN PRN Reason: Pain, Mild 1-3,fever,headache Amitriptyline HCl (Amitriptyline Hcl 50 Mg Tablet) 50 mg PO BEDTIME [facility] Last Admin: 08/14/24 21:45 Dose: 50 mg Aspirin (Aspirin Enteric Coated 81 Mg Tablet.) 81 mg PO DAILY [facility] Last Admin: 08/15/24 08:59 Dose: 81 mg Atorvastatin Calcium (Atorvastatin Calcium 80 Mg Tablet) 80 mg PO DAILY [facility] Last Admin: 08/15/24 08:59 Dose: 80 mg Bupropion HCl (Bupropion Hcl Xl 300 Mg Tab.Er.24h) 300 mg PO DAILY [facility] Last Admin: 08/15/24 08:59 Dose: 300 mg Calcium Carbonate (Calcium Carbonate 750 Mg Tab.Chew) 750 mg PO BID [facility] Last Admin: 08/15/24 08:59 Dose: 750 mg Calcium Carbonate (Calcium Carbonate 750 Mg Tab.Chew) 750 mg PO Q4H PRN PRN Reason: Heartburn Dextrose (Dextrose 50 % 25 Gm/50 Ml Syringe) 25 gm IVPUSH Q15M PRN; Protocol PRN Reason: per Hypoglycemia Standing Ord. Docusate Sodium (Docusate Sodium 100 Mg Capsule) 100 mg PO BEDTIME [facility] Last Admin: 08/14/24 21:17 Dose: 100 mg Enoxaparin Sodium (Enoxaparin Sodium 40 Mg/0.4 Ml Syringe) 40 mg SUBCUT Q24H [facility] Ferrous Sulfate (Ferrous Sulfate 324 Mg Tablet.Dr) 324 mg PO DAILY [facility] Last Admin: 08/15/24 08:59 Dose: 324 mg Gabapentin (Gabapentin 400 Mg Capsule) 800 mg PO BID [facility] Last Admin: 08/15/24 08:59 Dose: 800 mg Glucose (Glucose Gel 15 Gm Gel..Gram.) 15 gm PO Q15M PRN; Protocol PRN Reason: per Hypoglycemia Standing Ord. Dextrose/Lactated Ringer's (D5lr) 1,000 mls @ 125 mls/hr IVCONT .Q8H [facility] Insulin Glargine (Insulin Glargine,Hum.Rec.Anlog 100 Unit/Ml 10 Ml Vial) 26 unit SUBCUT BEDTIME [facility] Last Admin: 08/14/24 21:35 Dose: 26 unit Insulin Human Lispro (Insulin Lispro 100 Unit/Ml 3 Ml Vial) 0 unit SUBCUT Q6H [facility]; Protocol Lamotrigine (Lamotrigine 100 Mg Tablet) 100 mg PO BID [facility] Last Admin: 08/15/24 08:58 Dose: 100 mg Levothyroxine Sodium (Levothyroxine Sodium 50 Mcg Tablet) 50 mcg PO DAILY@0600 [facility] Last Admin: 08/15/24 08:59 Dose: 50 mcg Magnesium Hydroxide (Milk Of Magnesia 30 Ml Oral.Susp) 30 ml PO DAILY PRN PRN Reason: Constipation Melatonin (Melatonin 3 Mg Tablet) 6 mg PO BEDTIME PRN PRN Reason: Insomnia Miconazole Nitrate (Miconazole Nitrate 2% Oint 57 Gm Oint...G.) 1 appl TOPICAL BID [facility]; Protocol Last Admin: 08/15/24 09:13 Dose: 1 appl Naproxen (Naproxen 500 Mg Tablet) 500 mg PO BID [facility] Last Admin: 08/15/24 08:59 Dose: 500 mg Nitrofurantoin Macrocrystals (Nitrofurantoin Monohyd/M-Cryst 100 Mg Capsule) 100 mg PO BID [facility] Last Admin: 08/15/24 08:59 Dose: 100 mg Ondansetron HCl (Ondansetron Hcl 4 Mg/2 Ml Vial) 4 mg IVPUSH Q8H PRN PRN Reason: Nausea and Vomiting Pharmacy Consult (Consult Rx Vancomycin Dosing) 1 each MISCELLANE DAILY PRN PRN Reason: Consult order Senna (Sennosides 8.6 Mg Tablet) 8.6 mg PO DAILY PRN PRN Reason: Constipation Sodium Biphosphate/Sodium Phosphate (Sodium Phosphate,[place]-Dibasic 133 Ml Enema) 118 ml VT DAILY PRN PRN Reason: Constipation Sodium Chloride (0.9 % Sodium Chloride Flush 3 Ml Syringe) 3 ml IVFLUSH QSHIFT [facility] Thiamine HCl (Thiamine Hcl 100 Mg Tablet) 100 mg PO DAILY [facility] Last Admin: 08/15/24 08:59 Dose: 100 mg Trazodone HCl (Trazodone Hcl 25 Mg Halftab) 25 mg PO BID [facility] Last Admin: 08/15/24 08:59 Dose: 25 mg Trazodone HCl (Trazodone Hcl 50 Mg Tablet) 50 mg PO BEDTIME [facility] Last Admin: 08/14/24 21:17 Dose: 50 mg Home Medications ?Medication ?Instructions ?Recorded ?Confirmed ?Last Taken ?Type Lactobacillus rhamnosus GG 10 1 cap PO BID 08/09/24 08/09/24 Unknown History billion cell capsule (Culturelle) acetaminophen 325 mg tablet 650 mg PO Q6H PRN pain or fever 08/09/24 08/09/24 Unknown History amitriptyline 50 mg tablet 50 mg PO BEDTIME 08/09/24 08/09/24 Unknown History aspirin 81 mg capsule 81 mg PO DAILY 08/09/24 08/09/24 Unknown History bupropion HCl 300 mg 24 hr tablet, 300 mg PO QAM 08/09/24 08/09/24 Unknown History extended release calcium carbonate (Calcium 600) 600 mg PO BID 08/09/24 08/09/24 Unknown History ferrous sulfate 325 mg (65 mg 325 mg PO DAILY 08/09/24 08/09/24 Unknown History iron) tablet gabapentin 800 mg tablet 800 mg PO BID 08/09/24 08/09/24 Unknown History insulin glargine 100 unit/mL (3 26 unit subcut BEDTIME 08/09/24 08/09/24 Unknown History mL) subcutaneous pen (Lantus Solostar U-100 Insulin) lamotrigine 100 mg tablet 100 mg PO BID 08/09/24 08/09/24 Unknown History levothyroxine 50 mcg tablet 50 mcg PO DAILY 08/09/24 08/09/24 Unknown History meloxicam 15 mg tablet 15 mg PO DAILY 08/09/24 08/09/24 Unknown History miconazole nitrate 2 % topical 1 appl topical BID 08/09/24 08/09/24 Unknown History ointment rosuvastatin 20 mg tablet 20 mg PO DAILY 08/09/24 08/09/24 Unknown History sennosides 8.6 mg tablet (senna) 8.6 mg PO DAILY PRN Constipation 08/09/24 08/09/24 Unknown History sodium phosphates 19 gram-7 118 ml VT DAILY PRN Constipation 08/09/24 08/09/24 Unknown History gram/118 mL enema (Fleet Enema) thiamine HCl (vitamin B1) 100 mg 100 mg PO DAILY 08/09/24 08/09/24 Unknown History tablet trazodone 50 mg tablet 25 mg PO BID 08/09/24 08/09/24 Unknown History trazodone 50 mg tablet 50 mg PO BEDTIME 08/09/24 08/09/24 Unknown History Physical Exam Vital Signs and Narrative: Vital Signs: Last Vital Signs Temp 100.8 F H 08/15/24 19:37 Pulse 79 08/15/24 19:37 Resp 13 08/15/24 19:37 BP 123/57 L 08/15/24 19:37 Pulse Ox 87 L 08/15/24 19:37 O2 Del Method Room Air 08/15/24 19:37 O2 Flow Rate 2 08/10/24 06:00 BMI result Body Mass Index 31.1 AMS, pt restless in soft wrist restraint Neuro: Unable to assess due to the delirium EYES: PERRLA conjunctiva pink ENT: hearing intact, oral mucosa is dry, patient is unable to swallow Cardiac: S1 S2 RRR, no murmur, no JVD, no edema in Lower ext Pulmonary: lungs diminished bilaterally, no adventitious sounds Abdominal: BS active in all 4 quadrants, no guarding, tenderness, rebounding MSK: No atrophy, patient is moving lower extremities. : no CVA tenderness fully patent draining hazy yellow urine Extremities: no edema in lower extremities, PT and DP pulses palpable +2 Psych: Patient currently restless and anxious Skin: Amputation site seeing is clean and dry, opening noted on 4th toe no drainage and nothing to culture. Patient has small pock yuly openings on both legs. Face appears mildly flushed. Results Labs 08/15/24 17:13 08/15/24 17:13 Labs: Laboratory Results - last 24 hr 08/14/24 08/15/24 08/15/24 21:20 17:13 18:35 MCV 84.9 MCH 26.6 L MCHC 31.3 RDW 14.7 Plt Count 344 MPV 10.0 Immature Gran % (Auto) 0.3 Neut % (Auto) 67.5 Lymph % (Auto) 20.7 [place] % (Auto) 5.7 Eos % (Auto) 5.0 H Baso % (Auto) 0.8 Lymph # (Auto) 2.0 [place] # (Auto) 0.6 Eos # (Auto) 0.5 H Baso # (Auto) 0.1 Abs Immat Gran (auto) 0.03 Absolute Neuts (auto) 6.6 Absolute Nucleated RBC 0.000 Nucleated RBC % (auto) 0.0 Anion Gap 10 L Estim Creat Clear Calc 109.0 Estimated GFR > 60 POC Glucose 120 H 65 Random Glucose 65 Lactic Acid 1.1 Calcium 9.5 Magnesium 1.8 Total Bilirubin 0.4 AST 22 ALT 6 Alkaline Phosphatase 83 Total Protein 6.6 Albumin 3.8 Lipase < 4 L Urine Color Urine Appearance Urine pH Ur Specific [place] Urine Protein Urine Glucose (UA) Urine Ketones Urine Blood Urine Nitrite Ur Leukocyte Esterase Urine RBC Urine WBC Ur Squamous Epith Cells Urine Bacteria Hyaline Casts Urine Yeast 08/15/24 18:37 MCV MCH MCHC RDW Plt Count MPV Immature Gran % (Auto) Neut % (Auto) Lymph % (Auto) [place] % (Auto) Eos % (Auto) Baso % (Auto) Lymph # (Auto) [place] # (Auto) Eos # (Auto) Baso # (Auto) Abs Immat Gran (auto) Absolute Neuts (auto) Absolute Nucleated RBC Nucleated RBC % (auto) Anion Gap Estim Creat Clear Calc Estimated GFR POC Glucose Random Glucose Lactic Acid Calcium Magnesium Total Bilirubin AST ALT Alkaline Phosphatase Total Protein Albumin Lipase Urine Color Yellow Urine Appearance Clear Urine pH 6.0 Ur Specific [place] 1.025 Urine Protein 100 (2+) H Urine Glucose (UA) Negative Urine Ketones Trace Urine Blood Small (1+) H Urine Nitrite Negative Ur Leukocyte Esterase Trace H Urine RBC 3-5 H Urine WBC 6-10 Ur Squamous Epith Cells 0-2 Urine Bacteria 1+ Hyaline Casts 0-2 Urine Yeast Present Imaging Radiologist's Impressions: R foot xray Findings: No fractures or dislocations. Extensive midfoot osteoarthritis with midfoot collapse. Multiple subluxations are present. No ankle effusion. No radiopaque foreign body. Vascular calcifications are present. IMPRESSION: 1. No acute findings. 2. Charcot arthropathy. Assessment and Plan (1) Sepsis: Qualifiers: Sepsis acute organ dysfunction status: unspecified Sepsis type: sepsis due to unspecified organism Qualified Code(s): A41.9 - Sepsis, unspecified organism Status: Acute (2) Delirium: Status: Acute (3) Hypoglycemia: Status: Acute (4) Amputation toe: Qualifiers: Laterality: right Qualified Code(s): S98.131A - Complete traumatic amputation of one right lesser toe, initial encounter Status: Acute (5) Recent urinary tract infection: Status: Acute (6) Major neurocognitive disorder due to Alzheimer's disease: Status: Acute (7) Charcot joint of ankle: Qualifiers: Laterality: unspecified laterality Qualified Code(s): M14.679 - Charcot's joint, unspecified ankle and foot Status: Acute (8) Diabetes: Qualifiers: Diabetes mellitus complication detail: without coma Diabetes mellitus complication status: with hypoglycemia Diabetes mellitus oysterman insulin use: unspecified retirement insulin use status Diabetes mellitus type: type 2 Qualified Code(s): E11.649 - Type 2 diabetes mellitus with hypoglycemia without coma Status: Acute Plan 69 yo male with PMH of uncontrolled IDDM, hypothyroidism, cognitive impairment/ Alzheimer's, dysphagia, HLD, depression, BRENNA, charcot's joint both feet, chronic urinary retention with chronic Dow placement since May of 2023, neuropathy, hypothyroidism, UTI is being admitted for sepsis, delirium status post right toe amputation early June 2024 at [facility]. Patient had been undergoing rehab at [facility] and in the interim developed some significant agitation and aggressiveness and was transferred to [place] [facility] on August 09 and diagnosed with UTI. Patient grew Enterobacter and E coli and was treated with Macrodantin and in the interim remained in the emergency room awaiting placement as patient was medically stable. August 15 patient developed fever, tachycardia, delirium and worsening altered mental status that required soft wrist restraints. UA appears negative, cultures pending, blood cultures x2 are pending. Likely source of infection is the right toe amputation site. X-ray negative for osteomyelitis. Patient is being admitted for medical management. 1. Sepsis Patient meets SIRS criteria with noted fever of 102, tachycardia and possible source of infection to include amputation site of right foot. Patient currently does not have leukocytosis, DULCE MARIA or shock liver. X-ray of right foot is negative for osteomyelitis. Patient is started on cefepime and vancomycin. Wound care consult placed Lactic acid normal. Patient has evidence of hypoglycemia and D5 1/2 normal saline has been started Due to delirium patient is not able to swallow or eat or drink fluids. Blood cultures x2 pending. Urine culture also pending. UA from today is low suspicion for urinary tract infection. Patient did complete Macrodantin treatment for UTI diagnosed on 08/09. Culture positive for Enterobacter and E coli both susceptible to Macrodantin Tylenol rectally for fever. 2. Delirium with known cognitive deficits Secondary to SIRS and infection Ativan 0.5-1 mg IV q.4 as needed for agitation or restlessness. IV fluids and dextrose provided Goal is to remove soft wrist restraints when patient is medically stable. Patient is a high fall risk. 3. Hypoglycemia D5 1/2 normal saline instituted at 100 mL/hour. Lantus has been held. Patient is currently NPO unable to swallow or eat or drink fluids This has been discussed with patient's healthcare proxy. No plans currently for tube feeds, PPN or TPN per HCP. This may need to be reviewed in the next 24-48 hours. 4. Amputation R toe secondary to dry gangrene 07/11 [facility] Patient likely has a secondary infection. Wound care consult ordered. Current wound was not cultured prior to starting antibiotics in the emergency room Infectious disease consult if needed. Patient will continue cefepime and vancomycin. Daily wound care as currently ordered. Await recommendations from Wound Care consult. 5. Recent UTI 08/09 grew ecoli, enterobacter and was treated with macrodantin UA repeated today, low threshold for repeat urinary tract infection, reviewing with staff when the Dow was last changed. If greater than 30 days goal is to change Dow catheter. Patient has had Dow catheter in place since May of 2023 for chronic urinary retention issues.. 6. Alzheimer disease Chronic Likely delirium from sepsis and pt may likey return to baseline with intervention HIGH FALL RISK Aspiration precautions 7. Charcot Joint of B feet Chronic, pt has not been able to walk since May 2024 8. Uncontrolled diabetes (pt has refused to take lantus for over a year) Per HCP, pt has refused to take LAntus over the last year and 3 months, resulting in likey complicaitons with dry gangrene in R toe and need for surgery Pt currently experiencing hypoglycemia from inability to swallow and no oral intake May need to review PPN, TPN and or NG tube feeds but for now HCP wants to hold off and see if pt responds to treatment Lantus on hold D5 1/2 NS ordered at 100 mls per hour SSI Q6h 9. Dysphagia Secondary to delirium from sepsis related to suspected infeciton of R toe s/p prior amputation ST eval ordered NPO Aspiration precautions in place Patient requires hospital admission for sepsis, delirium and suspected inspection of right amputation site of right foot. Patient will require at least 3 hospital days for recovery and will require alternative placement as patient can not return to care 1. Total time managing care of this patient today: 45 minutes. Quality Stroke Does the patient have a stroke diagnosis?: No Reason for No Anti-thrombotic by Day Two: N/A - Med Ordered VTE Prior VTE?: No VTE Risk Level:: Medical - moderate - high VTE Device Contraindication: Treatment Not Tolerated VTE Drug Contraindication: N/A - Med Ordered
[2024-08-15 20:50] LABS: Glucose, Whole Blood 61 mg/dL (60-115)
[2024-08-15] MEDS: Dextrose 50 % 25 GM/50 ML SYRINGE IVPUSH (20:59)
[2024-08-15] MEDS: Enoxaparin Sodium 40 MG/0.4 ML SYRINGE SUBCUT (21:02)
[2024-08-15] MEDS: LORazepam 2 MG/ML VIAL 0.5 MG IVPUSH (21:03)
[2024-08-15] MEDS: Dextrose 5 % and Lactated Ring 1,000 ML 125 ML IVCONT (21:04)
[2024-08-15 21:45] LABS: B Type Natriuretic Peptide 33 pg/mL (<100)
[2024-08-15 21:55] LABS: Thyroid Stimulating Hormone 0.32 uIU/mL (0.32-4.0)
--- NOTE | 2024-08-15 22:39 | MHC.CM.ED ---
E-tejinder sent to [facility] financials regarding update for information regarding MH application process and documentation provided by /invoked HCP. Pt will now be admitted. No bed offers yet. Referrals made within 100 miles.
[2024-08-15] MEDS: LORazepam 2 MG/ML VIAL 1 MG IVPUSH (23:04)
--- NOTE | 2024-08-15 23:26 | PC.NURSE ---
Assumed care for pt at 1900. RUE and LUE in soft restraints as pt is agitated and confused. Pt trying to pull on the dow. VSS. @2043 POC found to be 61. 12.5gm of dextrose given and D5LR started at 125mls/hr as per JUL. Pt is NPO on aspiration precautions, 2100 PO meds not given. Hospitalist aware. @ 2102 0.5mg of IV ativan given per MD order as pt continues to be agitated and confused. @ 2303 pt continues to be agitated and confused and in soft restraints. VSS MD made aware and 1mg ativan administered. @2319 Pt is asleep, no apparent distress noted, breaths are even regular and unlabored. Soft restraints removed. Skin intact at the wrists with no redness, + radial pulse bilateral, +cms. Monitoring is ongoing.
[2024-08-16] VITALS (8 sets, daily range): BP systolic 107–144; BP diastolic 60–77; PULSE 63–72; RESP 14–20; TEMP 35.8–36.6; O2SAT 92–99; BMI 30.3
[2024-08-16 02:30] LABS: Glucose, Whole Blood 87 mg/dL (60-115)
[2024-08-16] MEDS: Dextrose 5 % and Lactated Ring 1,000 ML 125 ML IVCONT (04:16)
[2024-08-16] MEDS: cefEPime HCl/D5W 2 GM/50 ML PIGGYBACK IV (04:35)
--- NOTE | 2024-08-16 05:00 | ECG_ITS ---
Test Reason : TACHY Blood Pressure : */* mmHG Vent. Rate : 63 BPM Atrial Rate : 63 BPM P-R Int : 208 ms QRS Dur : 100 ms QT Int : 446 ms P-R-T Axes : 22 -9 29 degrees QTcB Int : 456 ms Normal sinus rhythm Low voltage QRS Septal infarct , age undetermined Abnormal ECG When compared with ECG of 09-Aug-2024 14:51, Septal infarct is now Present Referred By: Roula Levine Electronically Signed By: YESI JOEL
[2024-08-16 05:07] LABS: MANUAL DIFF FLAG NO
[2024-08-16 05:10] LABS: Basophils Absolute Auto 0.1 X10*3/uL (0.0-0.2); Eosinophils Absolute Auto 0.5 X10*3/uL (0.0-0.4); Eosinophils Percent Auto 7.6 % (0-4); Hematocrit 31.6 % (42.0-52.0); Hemoglobin 9.7 g/dl (14.0-18.0); Imm Gran Abs Auto 0.02 X10*3/uL (0.00-0.03); Imm Gran Pct Auto 0.3 % (0.0-0.4); Lymphocytes Absolute Auto 1.9 X10*3/uL (1.2-4.9); Lymphocytes Percent Auto 30.8 % (20-40); Mean Corpuscular HGB Conc 30.7 g/dl (31.0-36.0); Mean Corpuscular Hemoglobin 26.5 pg (27.0-33.0); Mean Corpuscular Volume 86.3 fL (80.0-98.0); Mean Platelet Volume 10.1 fL (9.4-12.4); Monocytes Absolute Auto 0.4 X10*3/uL (0.1-1.2); Monocytes Percent Auto 6.9 % (2-11); Neutrophils Absolute Auto 3.3 x10*3/uL (2.0-8.3); Neutrophils Percent Auto 53.4 % (45-73); Platelet Count 246 X10*3/uL (160-400); Red Blood Count 3.66 X10*6/uL (4.60-5.80); Red Cell Distribution Width 14.7 % (11.0-16.0); White Blood Count 6.2 X10*3/uL (4.8-10.8)
[2024-08-16 05:22] LABS: Anion Gap 10 (12-20); Blood Urea Nitrogen 20 mg/dL (9-16); Calcium 8.6 mg/dL (8.4-10.2); Carbon Dioxide 25 mmol/L (22-29); Chloride 112 mmol/L (96-108); Creatinine Clr Calc Pharmacy 120.8; Estimated Glomerular Filt Rate > 60; Glucose Random 89 mg/dL (60-115); Potassium 3.7 mmol/L (3.3-5.1); Sodium 143 mmol/L (135-145)
[2024-08-16] MEDS: vancomycin HCL 1,250 MG in 0.9 % Sodium Chloride 250 ML 166.67 MG IV (05:26)
[2024-08-16 07:24] LABS: Glucose, Whole Blood 95 mg/dL (60-115)
--- NOTE | 2024-08-16 08:56 | PC.NURSE ---
Speech Therapy reports they attempt to wake Pt for speech eval but Pt too sleepy. Will return for second attempt. Call received from Pts who states she was made aware by overnight RN that Pt was receiving IVF. states Pt has a MOLST and wishes to have IVF stopped in order to honor the MOLST. MOLST paperwork reviewed and in fact indicates no artificial hydration. Attending made aware and IVF d/c'd. AM medications held d/t NPO status and pending Speech Therapy eval.
--- NOTE | 2024-08-16 09:33 | MHC.CM.PN ---
Addendum entered by Nara Mitchell 08/16/24 10:50: Received notification from Dr Alexander that patient is now lethargic and not eating or drinking. [facility] made aware and asked to reassess patient. Original Note: Patient has been in the ER since 08/09. Patient came to the ER from [facility] d/t behaviors. Patient has been at SNF since 06/2024 for STR d/t toe amputations. Due to behaviors at the facility, [facility] is not willing to accept patient back. Referral was broadcasted for STR placement. Patient was originally made [facility] and a referral for hospice was made. Hospice evaluated patient and did not feel he qualified for hospice level of care. Patient ended up being admitted to the hospital on 08/15 due to sepsis. Spoke with Quiana via telephone at [phone]. Patient's /invoked HCP, Quiana, is aware and has been working to gather the necessary paperwork to complete the [employer] application. Quiana also states she hasn't heard from [facility] yet. Quiana Clement, ER CM RN, reached out to counselors last night to inquire about this. PCP verified as Dr Brenda Minaya in [place]. Copy of HCP invocation has been requested from [facility]. Quiana is concerned that patient is receiving IVF for hydration when it is against his wishes. T/W explained Dr Alexander would reach out to her to discuss patient's plan of care. Quiana verbalized understanding. Dr Alexander made aware and requested to call Quiana. Continue to monitor for d/c needs.
--- NOTE | 2024-08-16 10:06 | PC.NURSE ---
Hospitalist at bedside. Hospitalist to call Pts to consult.
--- NOTE | 2024-08-16 10:25 | MHC.SLORD ---
Speech Language Pathology Order Status: VEGETABLES COOK attempted waking pt for clinical bedside swallow evaluation this morning, pt soundly asleep (?medicated). RN consulted, RN to text VEGETABLES COOK when pt more awake. MD notified of present status, pt remains NPO pending VEGETABLES COOK evaluation.
--- NOTE | 2024-08-16 11:59 | PC.NURSE ---
General surgery at bedside.
--- NOTE | 2024-08-16 12:06 | P.CONGS_ITS ---
History of Present Illness Consult details Consult date: 08/16/24 Narrative: 69-year-old male admitted because of signs of delirium. He is from [facility] 1 long term. He has multiple medical problems including cognitive deficits, possible Alzheimer's disease, uncontrolled diabetes, mood disorder, thyroid disease. He apparently had amputation of the 2nd and 3rd toes [facility] about 4 weeks ago. This was noted to appear infected a [facility]. He had also been noted to be aggressive at the long term and was therefore sent to the ED.He has been here in the ED since August 09. He does not provide any history. He was noted to have fever. It was uncertain as to whether he has had follow up with his surgeon in [facility]. Review of Systems 2 Review of Systems: Yes Unobtainable due to mental condition PMFSH Past Medical History Medical History (Updated 08/16/24 @ 12:12 by Diallo Isbell MD) Wound infection Hypothyroidism Amputation toe Charcot joint of ankle Cognitive impairment Hyperlipidemia Diabetes Social History Social History Household Members: Other Household Members Other:: care one Housing: Long-Term Alcohol intake: never Patient Tobacco Use Status: Tobacco use Unknown Advance Directives: Yes Advance Directives on File: Yes Advance Directives Date on File: 08/09/24 service: No Travel History Ebola Risk: Travel/Contact With Anyone From Affected Area/s: No Has Patient Experienced Ebola Symptoms: No Meds Allergies Allergy/AdvReac Type Severity Reaction Status Date / Time No Known Allergies Allergy Verified 08/09/24 13:58 Active Medications: Current Medications Acetaminophen (Acetaminophen 325 Mg Tablet) 650 mg PO Q6H PRN PRN Reason: Pain, Mild 1-3,fever,headache Amitriptyline HCl (Amitriptyline Hcl 50 Mg Tablet) 50 mg PO BEDTIME [facility] Last Admin: 08/15/24 21:07 Dose: Not Given Aspirin (Aspirin Enteric Coated 81 Mg Tablet.) 81 mg PO DAILY [facility] Last Admin: 08/16/24 09:01 Dose: Not Given Atorvastatin Calcium (Atorvastatin Calcium 80 Mg Tablet) 80 mg PO DAILY [facility] Last Admin: 08/16/24 09:01 Dose: Not Given Bupropion HCl (Bupropion Hcl Xl 300 Mg Tab.Er.24h) 300 mg PO DAILY [facility] Last Admin: 08/16/24 09:01 Dose: Not Given Calcium Carbonate (Calcium Carbonate 750 Mg Tab.Chew) 750 mg PO BID [facility] Last Admin: 08/16/24 09:01 Dose: Not Given Calcium Carbonate (Calcium Carbonate 750 Mg Tab.Chew) 750 mg PO Q4H PRN PRN Reason: Heartburn Dextrose (Dextrose 50 % 25 Gm/50 Ml Syringe) 25 gm IVPUSH Q15M PRN; Protocol PRN Reason: per Hypoglycemia Standing Ord. Docusate Sodium (Docusate Sodium 100 Mg Capsule) 100 mg PO BEDTIME [facility] Last Admin: 08/15/24 21:07 Dose: Not Given Enoxaparin Sodium (Enoxaparin Sodium 40 Mg/0.4 Ml Syringe) 40 mg SUBCUT Q24H [facility] Last Admin: 08/15/24 21:02 Dose: 40 mg Ferrous Sulfate (Ferrous Sulfate 324 Mg Tablet.Dr) 324 mg PO DAILY [facility] Last Admin: 08/16/24 09:01 Dose: Not Given Gabapentin (Gabapentin 400 Mg Capsule) 800 mg PO BID [facility] Last Admin: 08/16/24 09:01 Dose: Not Given Glucose (Glucose Gel 15 Gm Gel..Gram.) 15 gm PO Q15M PRN; Protocol PRN Reason: per Hypoglycemia Standing Ord. Dextrose/Lactated Ringer's (D5lr) 1,000 mls @ 125 mls/hr IVCONT .Q8H [facility] Last Admin: 08/16/24 11:59 Dose: Not Given Cefepime HCl (Maxipime) 2 gm in 50 mls @ 100 mls/hr IV Q12H [facility] Last Infusion: 08/16/24 05:02 Dose: Infused Vancomycin HCl 1,250 mg/ (Sodium Chloride) 250 mls @ 166.667 mls/hr IV Q12H [facility] Last Infusion: 08/16/24 07:19 Dose: Infused Insulin Glargine (Insulin Glargine,Hum.Rec.Anlog 100 Unit/Ml 10 Ml Vial) 26 unit SUBCUT BEDTIME [facility] Last Admin: 08/14/24 21:35 Dose: 26 unit Insulin Human Lispro (Insulin Lispro 100 Unit/Ml 3 Ml Vial) 0 unit SUBCUT Q6H [facility]; Protocol Last Admin: 08/16/24 07:23 Dose: Not Given Lamotrigine (Lamotrigine 100 Mg Tablet) 100 mg PO BID [facility] Last Admin: 08/16/24 09:01 Dose: Not Given Levothyroxine Sodium (Levothyroxine Sodium 50 Mcg Tablet) 50 mcg PO DAILY@0600 [facility] Last Admin: 08/16/24 05:03 Dose: Not Given Lorazepam (Lorazepam 2 Mg/Ml Vial) 1 mg IVPUSH Q4H PRN PRN Reason: anxiety/restlessness Last Admin: 08/15/24 23:04 Dose: 1 mg Magnesium Hydroxide (Milk Of Magnesia 30 Ml Oral.Susp) 30 ml PO DAILY PRN PRN Reason: Constipation Melatonin (Melatonin 3 Mg Tablet) 6 mg PO BEDTIME PRN PRN Reason: Insomnia Miconazole Nitrate (Miconazole Nitrate 2% Oint 57 Gm Oint...G.) 1 appl TOPICAL BID [facility]; Protocol Last Admin: 08/16/24 09:01 Dose: Not Given Naproxen (Naproxen 500 Mg Tablet) 500 mg PO BID [facility] Last Admin: 08/16/24 09:01 Dose: Not Given Neomycin/Polymyxin/Bacitracin (Neomy/Polymyx/Bacit/Ointment 14 Gm Tube) 1 gm TOPICAL DAILY [facility]; Protocol Ondansetron HCl (Ondansetron Hcl 4 Mg/2 Ml Vial) 4 mg IVPUSH Q8H PRN PRN Reason: Nausea and Vomiting Pharmacy Consult (Consult Rx Vancomycin Dosing) 1 each MISCELLANE DAILY PRN PRN Reason: Consult order Senna (Sennosides 8.6 Mg Tablet) 8.6 mg PO DAILY PRN PRN Reason: Constipation Sodium Biphosphate/Sodium Phosphate (Sodium Phosphate,[place]-Dibasic 133 Ml Enema) 118 ml [place] DAILY PRN PRN Reason: Constipation Sodium Chloride (0.9 % Sodium Chloride Flush 3 Ml Syringe) 3 ml IVFLUSH QSHIFT [facility] Last Admin: 08/16/24 08:12 Dose: Not Given Thiamine HCl (Thiamine Hcl 100 Mg Tablet) 100 mg PO DAILY [facility] Last Admin: 08/16/24 09:02 Dose: Not Given Trazodone HCl (Trazodone Hcl 25 Mg Halftab) 25 mg PO BID [facility] Last Admin: 08/16/24 09:01 Dose: Not Given Trazodone HCl (Trazodone Hcl 50 Mg Tablet) 50 mg PO BEDTIME [facility] Last Admin: 08/15/24 21:08 Dose: Not Given Home Medications ?Medication ?Instructions ?Recorded ?Confirmed ?Last Taken ?Type amitriptyline 50 mg tablet 50 mg PO BEDTIME 08/17/24 08/17/24 Unknown History aspirin 81 mg tablet,delayed 81 mg PO DAILY 08/17/24 08/17/24 Unknown History release bisacodyl 10 mg rectal suppository 10 mg [place] DAILY PRN Constipation 08/17/24 08/17/24 Unknown History bupropion HCl 300 mg 24 hr tablet, 300 mg PO DAILY 08/17/24 08/17/24 Unknown History extended release calcium carbonate (Calcium 600) 600 mg PO BID 08/17/24 08/17/24 Unknown History cholecalciferol (vitamin D3) 50 50 mcg PO BID 08/17/24 08/17/24 Unknown History mcg (2,000 unit) tablet (Vitamin D3) dextromethorphan HBr 15 mg/5 mL 30 mg PO Q4H PRN Cough 08/17/24 08/17/24 Unknown History oral liquid (Tussin Cough (DM only)) ferrous sulfate 325 mg (65 mg 325 mg PO DAILY 08/17/24 08/17/24 Unknown History iron) tablet gabapentin 800 mg tablet 800 mg PO BID 08/17/24 08/17/24 Unknown History insulin glargine 100 unit/mL (3 26 unit subcut BEDTIME 08/17/24 08/17/24 Unknown History mL) subcutaneous pen (Lantus Solostar U-100 Insulin) lamotrigine 100 mg tablet 100 mg PO BID 08/17/24 08/17/24 Unknown History levothyroxine 50 mcg tablet 50 mcg PO DAILY@0600 08/17/24 08/17/24 Unknown History meloxicam 15 mg tablet 15 mg PO DAILY 08/17/24 08/17/24 Unknown History miconazole nitrate 2 % topical 1 appl topical BID PRN REDNESS ON 08/17/24 08/17/24 Unknown History ointment SCROTUM oxycodone 5 mg tablet 5 mg PO Q6H PRN Pain 08/17/24 08/17/24 Unknown History rosuvastatin 20 mg tablet 20 mg PO BEDTIME 08/17/24 08/17/24 Unknown History sennosides 8.6 mg tablet (senna) 8.6 mg PO DAILY PRN Constipation 08/17/24 08/17/24 Unknown History sodium phosphates 19 gram-7 118 ml MA DAILY PRN Constipation 08/17/24 08/17/24 Unknown History gram/118 mL enema (Fleet Enema) thiamine HCl (vitamin B1) 100 mg 100 mg PO DAILY 08/17/24 08/17/24 Unknown History tablet Physical Exam 2 Vital Signs: Vital Signs: Last Vital Signs Temp 97.0 F 08/16/24 10:31 Pulse 64 08/16/24 10:31 Resp 16 08/16/24 10:31 BP 131/67 08/16/24 10:31 Pulse Ox 97 08/16/24 10:31 O2 Del Method Room Air 08/16/24 10:31 O2 Flow Rate 2 08/10/24 06:00 BMI result Body Mass Index 31.1 Const: Other: Not communicative, appears very drowsy, mildly short of breath Resp: Other: Mildly short of breath Cardio: Rate: regular rate GI: Palpation (GI): Soft to palpation and not firm Extrem: Other: Amputation of the 2nd and 3rd toes on the right, with note of thick fibrinous debris covering the area; the wound is open and appears to have dehisced completely Results Labs 08/16/24 04:29 08/16/24 04:29 Labs: Abnormal lab results 08/15/24 08/15/24 08/16/24 Range/Units 17:13 18:37 04:29 RBC 4.18 L 3.66 L (4.60-5.80) X10*6/uL Hgb 11.1 L 9.7 L (14.0-18.0) g/dl Hct 35.5 L 31.6 L (42.0-52.0) % MCH 26.6 L 26.5 L (27.0-33.0) pg MCHC 30.7 L (31.0-36.0) g/dl Eos % (Auto) 5.0 H 7.6 H (0-4) % Eos # (Auto) 0.5 H 0.5 H (0.0-0.4) X10*3/uL Chloride 109 H 112 H (96-108) mmol/L Anion Gap 10 L 10 L (12-20) BUN 19 H 20 H (9-16) mg/dL Lipase < 4 L (8-78) U/L Urine Protein 100 (2+) H (Neg-Trace) mg/dL Urine Blood Small (1+) H (Negative) Ur Leukocyte Esterase Trace H (Negative) Urine RBC 3-5 H (0-2) /HPF Short CBC 08/15/24 08/16/24 Range/Units 17:13 04:29 WBC 9.8 6.2 (4.8-10.8) X10*3/uL Hgb 11.1 L 9.7 L (14.0-18.0) g/dl Hct 35.5 L 31.6 L (42.0-52.0) % Plt Count 344 246 D (160-400) X10*3/uL BMP 08/15/24 08/16/24 17:13 04:29 Sodium 143 143 Potassium 4.4 3.7 Chloride 109 H 112 H Carbon Dioxide 28 25 BUN 19 H 20 H Creatinine 0.82 0.74 Calcium 9.5 8.6 D Liver Function 08/15/24 Range/Units 17:13 Total Bilirubin 0.4 (0.0-1.0) mg/dL AST 22 (5-37) U/L ALT 6 (0-40) U/L Alkaline Phosphatase 83 (39-117) U/L Albumin 3.8 (3.5-5.0) g/dL Urine 08/09/24 08/15/24 Range/Units 14:59 18:37 Urine Color Dark Yellow Yellow Urine Appearance Turbid Clear Urine pH 5.0 6.0 (5.0-9.0) Ur Specific [place] 1.025 1.025 (1.005-1.025) Urine Protein 100 (2+) H 100 (2+) H (Neg-Trace) mg/dL Urine Glucose (UA) Negative Negative (Negative) mg/dL All other labs normal. Assessment and Plan (1) Wound infection: Status: Acute He has an open wound from the amputation site in the 2nd and 3rd dose. This appears to have thick fibrinous debris. I have changed his dressings and applied wet-to-dry. This appears infected. He has a already been started on antibiotics. He needs good wound care for now. He has a DNR DNI issue in effect and has brisk areas being considered. I will check on him for wound care issues from here on. Procedures Date of Service Date of Service: 08/18/24
--- NOTE | 2024-08-16 12:10 | PC.NURSE ---
Patient unable to participate in admission assessment, drowsy, no responding to any questions. Surgeon at bedside to assess amputation site to right toes. Wet to dry dressing applied.
--- NOTE | 2024-08-16 12:52 | MHC.CM.PN ---
Addendum entered by Nara Mitchell 08/16/24 13:55: [facility] does not have a bed. Referral faxed to [facility]. Stephania Reza is willing to follow for behaviors. Original Note: Patient remains admitted hospital patient in the ER waiting for a bed. Received notification from Rosie LZOANO and Lidia of [facility] that patient would qualify for 5 days of respite stay under hospice. will need to sign him onto hospice and would need to have a d/c plan for Wednesday. Dr Alexander aware. T/W spoke with patient's , Quiana. Quiana is agreeable to hospice with 5 days of respite in the hospital. Quiana is aware and agreeable to privately paying for room and board as of Wednesday. Referrals will be sent to SNF's, [facility] and [facility]. Continue to monitor for d/c needs.
[2024-08-16 13:11] LABS: Glucose, Whole Blood 72 mg/dL (60-115)
[2024-08-16] MEDS: NeoMY/Polymyx/Bacit/Ointment 14 GM Tube TOPICAL (13:26)
--- NOTE | 2024-08-16 13:39 | MHC.SL.SWA ---
Speech Pathologist Impression: Mild oral dysphagia d/t weakness and missing teeth, pt considered at moderate risk for aspiration in setting of AMS. Risk of Aspiration Due to: Weak Voice Reduced awareness Dysphasia Diet Status: Liquid Consistency and Strategies for Safe Swallow: Liquid Intake Recommendation: Thin Liquid Intake Strategies: Small Sips Solid Food Consistency: Dietary Recommendations: Liquids (thins) Additional Modifications to Solid Foods: Oral Medication Intake: Whole with Puree Please contact the pharmacy regarding appropriate crushable or liquid drug formulations that are available whenever modified delivery is recommended. Compensatory Strategies and Precautions to be Taken for Safe Swallow: Sitting Upright (90 deg) Small Bites and Sips Alternate Liquids/Solids Supervision While Eating and Drinking for Safe Swallow: Total Supervision (1:1) Foods to Avoid: Swallowing Recommended Treatments: Compens. Strategy Educat. Recommendation for Speech: Pt presents with mild oral phase dysphagia d/t missing dentition and weakness. Upon initiating oral prep phase, pt adequately rounded lips to sip from cup and from straw, with efficient anterior to posterior propulsion and trigger of pharyngeal swallow. Pt did not have any difficulty with control of fluid. Pt not trialed with solids or purees d/t ease of fatigue with minimal PO trials. Recc liquid diet (thin consistency) to re-introduce PO, anticipate pt will tolerate meds in puree. Comment: Diet should be re-assessed/advanced if pt status improves. ACID PURIFIER available to consult with family if indicated or requested. MD reported pt HCP decided on hospice. Pt no longer receiving IV fluids. Frequency/Duration: Date Range for Service Req: Timeline to reassess: Slitter Creaser Slotter Operator Clinican/Clinical Fellow: No Supervisory Statement: I have reviewed and agree with the student/clinical fellow's documentation: N/A Speech Language Pathologist: Rachana Merino M.S., [facility]-ACID PURIFIER
--- NOTE | 2024-08-16 14:26 | HO.PM.IMPN ---
Subjective Subjective Date of Service: 08/17/24 Interval History: 69-year-old gentleman was in emergency department for last several days, waiting for placement originally transferred from [address] due to aggressive behavior , with hallucination patient seen by psychiatry and was not considered to be a candidate for [facility], initially patient was made [facility] WELDER by ED provider after discussing with patient's healthcare proxy, later patient evaluated by hospice who felt patient does not qualify for hospital level of care, plan was for patient to be re-evaluated by Physical therapy and discharge back to [facility] if they accept the patient. On 08/15 patient noted to be febrile with temp of 101.8 degrees had tachycardia he was diagnosed to have sepsis with concern for UTI x-ray right foot showed no evidence of osteomyelitis there was concern for postop infection right foot versus UTI and patient admitted to medical floor. This morning patient noted to be lethargic unable to provide meaningful history, no fevers noted, tachycardia and tachypnea resolved. Review of Systems Unable to obtain due to mental status Physical Exam Vital Signs: Vital Signs: Last Vital Signs Temp 97.3 F 08/16/24 13:13 Pulse 68 08/16/24 13:12 Resp 14 08/16/24 13:12 BP 130/77 08/16/24 13:12 Pulse Ox 97 08/16/24 10:31 O2 Del Method Room Air 08/16/24 10:31 O2 Flow Rate 2 08/10/24 06:00 BMI result Body Mass Index 31.1 Const: Other: General in no acute distress. Neck no JVD. CVS regular rate rhythm, Respiratory lungs diminished, no respiratory distress, no wheeze, no rhonchi. Gastrointestinal abdomen soft, bowel sounds audible Extremities no edema. Neuro unable to assess/somnolent Skin no rash/right foot amputation site sutures in place mild surrounding erythema, no drainage Objective Data Active Medications Acetaminophen (Acetaminophen 325 Mg Tablet) 650 mg PO Q6H PRN PRN Reason: Pain, Mild 1-3,fever,headache Lorazepam (Lorazepam 2 Mg/Ml Vial) 1 mg IVPUSH Q4H PRN PRN Reason: anxiety/restlessness Last Admin: 08/15/24 23:04 Dose: 1 mg Documented By: DEVENDRA.DITOLC Magnesium Hydroxide (Milk Of Magnesia 30 Ml Oral.Susp) 30 ml PO DAILY PRN PRN Reason: Constipation Melatonin (Melatonin 3 Mg Tablet) 6 mg PO BEDTIME PRN PRN Reason: Insomnia Morphine Sulfate (Morphine Sulfate 4 Mg/Ml Cartridge) 3 mg IVPUSH Q3H PRN; Protocol PRN Reason: respiratory distress Ondansetron HCl (Ondansetron Hcl 4 Mg/2 Ml Vial) 4 mg IVPUSH Q8H PRN PRN Reason: Nausea and Vomiting Senna (Sennosides 8.6 Mg Tablet) 8.6 mg PO DAILY PRN PRN Reason: Constipation Sodium Biphosphate/Sodium Phosphate (Sodium Phosphate,[place]-Dibasic 133 Ml Enema) 118 ml [place] DAILY PRN PRN Reason: Constipation Sodium Chloride (0.9 % Sodium Chloride Flush 3 Ml Syringe) 3 ml IVFLUSH QSHIFT [facility] Last Admin: 08/16/24 08:12 Dose: Not Given Documented By: NICOLAS Non-Admin Reason: IV Running Trazodone HCl (Trazodone Hcl 25 Mg Halftab) 25 mg PO BID [facility] Last Admin: 08/16/24 09:01 Dose: Not Given Documented By: NICOLAS Non-Admin Reason: NPO Trazodone HCl (Trazodone Hcl 50 Mg Tablet) 50 mg PO BEDTIME [facility] Last Admin: 08/15/24 21:08 Dose: Not Given Documented By: ARGENIS Non-Admin Reason: NPO Labs 08/16/24 04:29 08/16/24 04:29 Labs: Laboratory Results - last 24 hr 08/15/24 08/15/24 08/15/24 17:13 18:35 18:37 MCV 84.9 MCH 26.6 L MCHC 31.3 RDW 14.7 Plt Count 344 MPV 10.0 Immature Gran % (Auto) 0.3 Neut % (Auto) 67.5 Lymph % (Auto) 20.7 Benson % (Auto) 5.7 Eos % (Auto) 5.0 H Baso % (Auto) 0.8 Lymph # (Auto) 2.0 Benson # (Auto) 0.6 Eos # (Auto) 0.5 H Baso # (Auto) 0.1 Abs Immat Gran (auto) 0.03 Absolute Neuts (auto) 6.6 Absolute Nucleated RBC 0.000 Nucleated RBC % (auto) 0.0 Anion Gap 10 L Estim Creat Clear Calc 109.0 Estimated GFR > 60 POC Glucose 65 Random Glucose 65 Lactic Acid 1.1 Calcium 9.5 Magnesium 1.8 Total Bilirubin 0.4 AST 22 ALT 6 Alkaline Phosphatase 83 B-Natriuretic Peptide 33 Total Protein 6.6 Albumin 3.8 Lipase < 4 L TSH 0.32 Urine Color Yellow Urine Appearance Clear Urine pH 6.0 Ur Specific [place] 1.025 Urine Protein 100 (2+) H Urine Glucose (UA) Negative Urine Ketones Trace Urine Blood Small (1+) H Urine Nitrite Negative Ur Leukocyte Esterase Trace H Urine RBC 3-5 H Urine WBC 6-10 Ur Squamous Epith Cells 0-2 Urine Bacteria 1+ Hyaline Casts 0-2 Urine Yeast Present 08/15/24 08/16/24 08/16/24 20:44 02:25 04:29 MCV 86.3 MCH 26.5 L MCHC 30.7 L RDW 14.7 Plt Count 246 D MPV 10.1 Immature Gran % (Auto) 0.3 Neut % (Auto) 53.4 Lymph % (Auto) 30.8 Benson % (Auto) 6.9 Eos % (Auto) 7.6 H Baso % (Auto) 1.0 Lymph # (Auto) 1.9 Benson # (Auto) 0.4 Eos # (Auto) 0.5 H Baso # (Auto) 0.1 Abs Immat Gran (auto) 0.02 Absolute Neuts (auto) 3.3 Absolute Nucleated RBC 0.000 Nucleated RBC % (auto) 0.0 Anion Gap 10 L Estim Creat Clear Calc 120.8 Estimated GFR > 60 POC Glucose 61 87 Random Glucose 89 Lactic Acid Calcium 8.6 D Magnesium Total Bilirubin AST ALT Alkaline Phosphatase B-Natriuretic Peptide Total Protein Albumin Lipase TSH Urine Color Urine Appearance Urine pH Ur Specific [place] Urine Protein Urine Glucose (UA) Urine Ketones Urine Blood Urine Nitrite Ur Leukocyte Esterase Urine RBC Urine WBC Ur Squamous Epith Cells Urine Bacteria Hyaline Casts Urine Yeast 08/16/24 08/16/24 07:20 13:08 MCV MCH MCHC RDW Plt Count MPV Immature Gran % (Auto) Neut % (Auto) Lymph % (Auto) Benson % (Auto) Eos % (Auto) Baso % (Auto) Lymph # (Auto) Benson # (Auto) Eos # (Auto) Baso # (Auto) Abs Immat Gran (auto) Absolute Neuts (auto) Absolute Nucleated RBC Nucleated RBC % (auto) Anion Gap Estim Creat Clear Calc Estimated GFR POC Glucose 95 72 Random Glucose Lactic Acid Calcium Magnesium Total Bilirubin AST ALT Alkaline Phosphatase B-Natriuretic Peptide Total Protein Albumin Lipase TSH Urine Color Urine Appearance Urine pH Ur Specific [place] Urine Protein Urine Glucose (UA) Urine Ketones Urine Blood Urine Nitrite Ur Leukocyte Esterase Urine RBC Urine WBC Ur Squamous Epith Cells Urine Bacteria Hyaline Casts Urine Yeast Microbiology Microbiology Results: Microbiology 08/15/24 19:22 Urine Culture - Preliminary Urine clean catch - Clean Catch Midstream No growth to date. Assessment and Plan (1) Wound infection: Status: Acute (2) Sepsis: Status: Acute (3) Recent urinary tract infection: Status: Acute Plan 69 yo male with PMH of uncontrolled IDDM, hypothyroidism, cognitive impairment/ Alzheimer's, dysphagia, HLD, depression, BRENNA, charcot's joint both feet, chronic urinary retention with chronic Parker placement since May of 2023, neuropathy, hypothyroidism, UTI is being admitted for sepsis, delirium status post right toe amputation early June 2024 at [facility]. Patient had been undergoing rehab at [facility] and in the interim developed some significant agitation and aggressiveness and was transferred to [facility] room on August 09 and diagnosed with UTI. Patient grew Enterobacter and E coli and was treated with Macrodantin and in the interim remained in the emergency room awaiting placement as patient was medically stable. August 15 patient developed fever, tachycardia, delirium and worsening altered mental status that required soft wrist restraints. UA appears negative, cultures pending, blood cultures x2 are pending. Likely source of infection is the right toe amputation site. X-ray negative for osteomyelitis. Patient is being admitted for medical management. 1. Sepsis Noted to have fever temp 102, tachycardia and possible source of infection include amputation site of right foot/UTI/COVID/UA 1+ bacteria, WBC 6-10, trace leukocyte esterase and negative nitrites X-ray of right foot is negative for osteomyelitis. Lactic acid normal. Blood cultures x2 pending. Urine culture pending. Will DC IV cefepime and vancomycin, DC surgical consult since patient accepted by hospice and healthcare proxy wishes no aggressive treatment 2. Delirium with known cognitive deficits/Alzheimer's dementia Secondary to SIRS and infection Continue Ativan 1 mg IV q.4 as needed for agitation or restlessness. Continue home medications 3. 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 Uncontrolled diabetes DC point of care blood sugar monitoring/placed on regular thin liquid diet as per speech therapy recommendation,dc home insulin. Patient Quiana Ponce is healthcare proxy , discuss goal of care she wishes patient to be comfortable, wishes all lab draws, antibiotics and IV fluids to be discontinued, continue hospice level of care. Patient requires hospital admission for aggressive behavior not accepted at rehab facility, accepted by hospice, requiring IV Ativan and IV morphine for behavior control and comfort. Quality Stroke Does the patient have a stroke diagnosis?: No Reason for No Anti-thrombotic by Day Two: N/A - Med Ordered VTE Prior VTE?: No VTE Risk Level:: Medical - moderate - high VTE Device Contraindication: Treatment Not Tolerated VTE Drug Contraindication: N/A - Med Ordered
[2024-08-16 16:29] LABS: Vancomycin Random 14.8 mcg/mL (15-20)
[2024-08-16 16:38] LABS: Glucose, Whole Blood 64 mg/dL (60-115)
[2024-08-16] MEDS: 0.9 % Sodium Chloride Flush 3 ML SYRINGE IVFLUSH ×2 (16:53→20:59)
--- NOTE | 2024-08-16 17:13 | HO.WOUND ---
Wound Consult: Initial 69yr old male? [place] [facility] [place] - See progress notes and H&P for detailed history.? Wound consult placed for Right Foot.? Chart review completed - Seen by Dr. Isbell from the General Surgery team. He recommends wet to dry dressing changes daily. Will defer to General surgery team for continued topical recommendations. Will loosely follow along. Right Foot Etiology: Surgical Dehiscence Wound Bed: yellow waldrop slough noted to wound bed - sutures observed in wound bed Drainage / Odor: [place] Edges: ? unattached Tanvi wound: pink erythema Goals of Treatment: ? defer to General Surgery wet to dry dressing Recommendations: 1. Turn and Reposition every 2 hours and as needed for patient comfort.? Use pillows or wedges to support off loading positions. 2. Off Load all bony prominences with use of pillows and heel boots if needed.? Apply Preventative foams where needed. ? 3. Monitor for incontinence and moisture control, use barrier creams when needed for prevention and treatment. 4. Provide adequate and supplemental nutrition.? 5. Order low air loss mattress. 6. When applicable maintain blood glucose levels per Providers order. Right Foot - Elevate heels off of bed surface with pillows. Cleanse with NS moist gauze, Apply skin prep to periwound. Apply saline moist gauze, cover with dry gauze, ABD pad and wrap. Change daily. Re-consult wound care Nurse for wound deterioration or wound changes.
[2024-08-16] MEDS: LORazepam 2 MG/ML VIAL 1 MG IVPUSH (19:18)
[2024-08-16] MEDS: traZODone HCL 50 MG TABLET PO (20:57)
[2024-08-16] MEDS: traZODone HCL 25 MG HALFTAB PO (20:57)
[2024-08-17] MEDS: LORazepam 2 MG/ML VIAL 1 MG IVPUSH ×3 (03:14→15:55)
[2024-08-17 03:16] VITALS: BP 126/68; PULSE 65; RESP 18; TEMP 36.7; O2SAT 90
[2024-08-17 08:00] VITALS: BP 149/71; PULSE 61; RESP 20; TEMP 36.1; O2SAT 95
[2024-08-17 12:00] VITALS: BP 127/70; PULSE 63; RESP 22; TEMP 36.2; O2SAT 93
[2024-08-17] MEDS: Morphine Sulfate 4 MG/ML CARTRIDGE 3 MG IVPUSH (12:31)
--- NOTE | 2024-08-17 13:21 | MHC.SLORD ---
Speech Language Pathology Order Status: Attempted to see patient X2 for re-assessment/upgrade, patient refusing. Per family, patient's po intake has been very poor for several months, frequently refuses to eat, not on any special diet, no history of swallowing difficulty. OIL DISTRIBUTOR will continue to follow.
--- NOTE | 2024-08-17 13:31 | MHC.CM.PN ---
ARELIS met with pt.'s , she said she is working with financial counselor here on [employer] [facility] for LTC. She said she is unable to pay privately for SNF care for pt. No accepting SNF's after wide referral search. Stephania Cobb said they will consider after they review the [facility]. Daniela will consider once [facility] is in place. Hospice is aware that pt. does not have an accepting SNF on Wednesday, as is . Pt. is now on Hospice GIP here.
[2024-08-17 16:00] VITALS: BP 112/63; PULSE 67; RESP 18; TEMP 36.4; O2SAT 95
--- NOTE | 2024-08-17 16:36 | P.DS_ITS ---
DS: Providers Provider Date of Service: 08/17/24 Date of admission: 08/15/24 19:35 Date of discharge: 08/17/24 Primary care physician: Brenda Minaya MD Consults: 08/09/24 16:44 Consult to Case Management Stat Comment: Consult to Hospice Stat Comment: 08/13/24 20:06 ED CARE Team Crisis Consult Stat Comment: Reason for consultation: pt held for case management placement making vague suicidal statements 08/13/24 20:55 Consult to Psychiatry Stat Consulting Provider: [facility] Psych Covering Reason for consultation: Pt with dementia expressing SI 08/14/24 10:58 Consult to Wound Care Routine Reason for consultation: right foot/toe amputation wound 08/15/24 19:43 Consult to Wound Care Routine Reason for consultation: R toe wound care s/p amputation, no OM, likely source of infection 08/17/24 12:09 Ethics Eval Routine Comment: DS: Diagnosis Discharge Diagnosis (1) Wound infection: Status: Acute (2) Sepsis: Status: Acute (3) Recent urinary tract infection: Status: Acute DS: Summary Hospital Course Hospital Course: 69-year-old gentleman was in emergency department for last several days, waiting for placement originally transferred from [address] due to aggressive behavior , with hallucination patient seen by psychiatry and was not considered to be a candidate for [facility], initially 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 On 08/15 patient noted to be febrile with temp of 101.8 degrees had tachycardia he was diagnosed to have sepsis with concern for UTI x-ray right foot showed no evidence of osteomyelitis there was concern for postop infection right foot versus UTI and patient admitted to medical floor. Hospital course: 69 yo male with PMH of uncontrolled IDDM, hypothyroidism, cognitive impairment/ Alzheimer's, dysphagia, HLD, depression, BRENNA, charcot's joint both feet, chronic urinary retention with chronic Parker placement since May of 2023, neuropathy, hypothyroidism, UTI admitted for sepsis, delirium status post right toe amputation early June 2024 at [facility]. Patient had been undergoing rehab at [facility] and in the interim developed some significant agitation and aggressiveness and was transferred to [place] [facility] room on August 09 and diagnosed with UTI. Patient grew Enterobacter and E coli and was treated with Macrodantin and in the interim remained in the emergency room awaiting placement as patient was medically stable. August 15 patient developed fever, tachycardia, delirium and worsening altered mental status that required soft wrist restraints. UA appears negative, cultures pending, blood cultures x2 are pending. Likely source of infection is the right toe amputation site. X- ray negative for osteomyelitis. Patient admitted for medical management. 1. Sepsis admitted with fever temp 102, tachycardia likely due to COVID, versus infection at amputation site, blood cultures preliminary showed no growth, urine culture grew yeast ,X-ray of right foot negative for osteomyelitis. Lactic acid normal, case discussed with patient's healthcare proxy Quiana Ponce, she wishes patient to be NAVAL DESIGNER and requested no lab draws no consultation no medications, patient seen by hospice they agreed for GI IP hosp ice due to agitation/aggressive behavior therefore patient will be discharged and admitted under GI IP hospice all medications lab draws have been discontinued patient will be managed with IV Ativan, IV morphine and Haldol, patient seen by speech therapy patient refused assessment he will be continued on clear liquid diet as tolerated for comfort. 2. Delirium with known cognitive deficits/Alzheimer's dementia continue Ativan and Haldol 3. 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 Uncontrolled diabetes DC point of care blood sugar monitoring/placed on regular thin liquid diet as per speech therapy recommendation. Time Attestation Discharge Coordination Time (in mins): 40 Quality: Safe Use of Opioids Does Pt have an Active Cancer Diagnosis on the Problem List?: No Quality: Stroke Does the patient have a stroke diagnosis?: No Physical Exam Vital Signs: Vital Signs: Last Vital Signs Temp 97.5 F 08/17/24 16:00 Pulse 67 08/17/24 16:00 Resp 18 08/17/24 16:00 BP 112/63 08/17/24 16:00 Pulse Ox 95 08/17/24 16:00 O2 Del Method Room Air 08/17/24 16:00 O2 Flow Rate 2 08/10/24 06:00 BMI result Body Mass Index 30.3 Const: Other: General in no acu te distress. Nec k no JVD. CVS re gular rate rhythm, Respiratory lungs diminished, no re spiratory distress , no wheeze, no rh onchi. Gastrointes tinal abdomen soft , bowel sounds au dible Extremities no edema. Neuro un able to assess/niki nolent Skin no davion h/right foot amput ation site , no dr hennessy, dressing i n place. DS: Data Data Completed and Pending Labs on day of discharge: Laboratory Results - last 24 hr 08/16/24 16:34 POC Glucose 64 Preliminary micro results at discharge 08/15/24 19:22 Urine Culture - Preliminary Urine clean catch - Clean Catch Midstream Yeast 08/15/24 17:13 Blood Culture - Preliminary Blood - Venous No growth after 24 hours. 08/15/24 17:13 Blood Culture - Preliminary Blood - Venous No growth after 24 hours. Discharge Plan Discharge Anticipated Discharge Date/Time: 08/17/24 16:26 Patient Disposition: Home, Self-Care Discharge Diagnosis: Sepsis due to COVID/wound infection Referrals: Brenda Minaya MD [Primary Care Provider] - 1 Week Discharge Medications: New trazodone 50 mg Tablet 50 mg PO BEDTIME Qty: 30 0RF acetaminophen 325 mg Tablet 650 mg PO Q6H PRN (Reason: Pain, Mild 1-3,Fever,Headache) Qty: 30 0RF Discontinued sennosides [senna] 8.6 mg Tablet 8.6 mg PO DAILY PRN (Reason: Constipation) acetaminophen 325 mg Tablet 650 mg PO Q6H MDD 3g PRN (Reason: pain or fever) trazodone 50 mg tablet 50 mg PO BEDTIME trazodone 50 mg tablet 25 mg PO BID meloxicam 15 mg tablet 15 mg PO DAILY thiamine HCl (vitamin B1) 100 mg Tablet 100 mg PO DAILY amitriptyline 50 mg tablet 50 mg PO BEDTIME calcium carbonate [Calcium 600] 600 mg calcium (1,500 mg) Tablet 600 mg PO BID gabapentin 800 mg tablet 800 mg PO BID miconazole nitrate 2 % Ointment 1 appl TOPICAL BID Rx Instructions: apply to scrotum levothyroxine 50 mcg tablet 50 mcg PO DAILY ferrous sulfate 325 mg (65 mg iron) Tablet 325 mg PO DAILY Fleet Enema 19-7 gram/118 mL Enema 118 ml HI DAILY PRN (Reason: Constipation) Culturelle 10 billion cell Capsule 1 cap PO BID lamotrigine 100 mg tablet 100 mg PO BID rosuvastatin 20 mg tablet 20 mg PO DAILY bupropion HCl 300 mg tablet extended release 24 hr 300 mg PO QAM insulin glargine [Lantus Solostar U-100 Insulin] 100 unit/mL (3 mL) insulin pen 26 unit subcut BEDTIME aspirin 81 mg Capsule 81 mg PO DAILY Discharge Orders: Discharge Order (Routine); Ordered 08/17/24 Ordered By: Merlin Alexander Diet: clear liquid diet Activity on Discharge: As tolerated Stand Alone Forms: Patient Portal Discharge page Print Language: Belizean Care Plan Goals: Hospice goal towards comfort All home medication discontinued Continue Tylenol/morphine/Ativan as per hospice Health Concerns: Sepsis Alzheimer's dementia 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
== END 2024-08-17 17:51 | disposition home or self-care (01) | DRG 689 ==
LOC: HO.ED 08-14 12:19 → HO.EDOVER 08-15 20:05 → HO.IMC 08-16 14:44
PROVIDERS: Emergency Medicine; Physician Assistant Medical; Student in an Organized Health Care Education/Training Program; Admitting Provider Nurse Practitioner Family; Emergency Provider Emergency Medicine; PCP Family Medicine; Visit Provider Hospitalist
DX: N39.0 Urinary tract infection, site not specified (principal); U07.1 COVID-19; F05 Delirium due to known physiological condition; T87.43 Infection of amputation stump, right lower extremity; E03.9 Hypothyroidism, unspecified; G30.9 Alzheimer's disease, unspecified; F02.80 Dementia in other diseases classified elsewhere, unspecified severity, without behavioral disturbance, psychotic disturbance, mood disturbance, and anxiety; E11.610 Type 2 diabetes mellitus with diabetic neuropathic arthropathy; Z66 Do not resuscitate; E11.649 Type 2 diabetes mellitus with hypoglycemia without coma; R13.10 Dysphagia, unspecified; Z51.5 Encounter for palliative care; Z78.1 Physical restraint status; G47.33 Obstructive sleep apnea (adult) (pediatric); B96.20 Unspecified Escherichia coli [E. coli] as the cause of diseases classified elsewhere; B96.89 Other specified bacterial agents as the cause of diseases classified elsewhere; Z79.4 Long term (current) use of insulin; Z79.82 Long term (current) use of aspirin; Z79.890 Hormone replacement therapy; Z79.899 Other long term (current) drug therapy
CPT/HCPCS: 0241U; 36415; 71045; 73630; 80048; 80053; 80076; 80202; 81001; 82140; 82803; 82947; 83605; 83690; 83735; 83880; 84145; 84443; 85025; 85652; 86140; 87040; 87086; 87088; 87186; 92610; 93005; 97161; 99285; J0131; J0692; J1200; J1630; J1650; J1885; J2060; J2270; J2359; J2543; J3370; J3371; S9485

== ENCOUNTER → 2024-08-09 14:05 | Outpatient (BNV) | payer OTHER, SELFPAY | PROVIDERS: Emergency Provider Emergency Medicine; PCP Family Medicine; Visit Provider Internal Medicine Cardiovascular Disease | DX: I44.0 Atrioventricular block, first degree (principal) | CPT/HCPCS: 93010 ==

== ENCOUNTER → 2024-08-09 14:05 | Outpatient (BNV) | payer OTHER, SELFPAY | PROVIDERS: Emergency Provider Emergency Medicine; Visit Provider Radiology Diagnostic Radiology | DX: J98.4 Other disorders of lung (principal); S92.351A Displaced fracture of fifth metatarsal bone, right foot, initial encounter for closed fracture; S92.341A Displaced fracture of fourth metatarsal bone, right foot, initial encounter for closed fracture | CPT/HCPCS: 71045; 73630 ==

== ENCOUNTER → 2024-08-09 15:51 | Outpatient (BNV) | payer OTHER, SELFPAY | PROVIDERS: Emergency Provider Emergency Medicine; PCP Family Medicine; Visit Provider Social Worker | DX: G30.9 Alzheimer's disease, unspecified (principal); F02.80 Dementia in other diseases classified elsewhere, unspecified severity, without behavioral disturbance, psychotic disturbance, mood disturbance, and anxiety | CPT/HCPCS: 99285 ==

== ENCOUNTER → 2024-08-15 17:17 | Outpatient (BNV) | payer OTHER, SELFPAY | PROVIDERS: Emergency Provider Emergency Medicine; PCP Family Medicine; Visit Provider Radiology Diagnostic Radiology | DX: M14.671 Charcot's joint, right ankle and foot (principal) | CPT/HCPCS: 73630 ==

== ENCOUNTER 2024-08-15 19:35 | Outpatient (BNV) | payer OTHER, SELFPAY | END 2024-08-16 05:00 | PROVIDERS: Admitting Provider Nurse Practitioner Family; Emergency Provider Emergency Medicine; PCP Family Medicine; Visit Provider Internal Medicine | DX: R94.31 Abnormal electrocardiogram [ECG] [EKG] (principal); R00.0 Tachycardia, unspecified | CPT/HCPCS: 93010 ==

== ENCOUNTER → 2024-08-15 19:35 | Outpatient (BNV) | payer OTHER, SELFPAY | PROVIDERS: Admitting Provider Nurse Practitioner Family; Emergency Provider Emergency Medicine; PCP Family Medicine; Visit Provider Surgery | DX: T87.81 Dehiscence of amputation stump (principal); L08.9 Local infection of the skin and subcutaneous tissue, unspecified | CPT/HCPCS: 97602; 99222 ==

== ENCOUNTER → 2024-08-15 19:35 | Outpatient (BNV) | payer OTHER, SELFPAY | PROVIDERS: Admitting Provider Nurse Practitioner Family; Emergency Provider Emergency Medicine; PCP Family Medicine; Visit Provider Nurse Practitioner Family | DX: T14.8XXA Other injury of unspecified body region, initial encounter (principal); L08.9 Local infection of the skin and subcutaneous tissue, unspecified; A41.9 Sepsis, unspecified organism; Z87.440 Personal history of urinary (tract) infections | CPT/HCPCS: 99232; 99499 ==

== ENCOUNTER → 2024-08-17 18:04 | Outpatient (BNV) | payer OTHER, SELFPAY | PROVIDERS: Visit Provider Hospitalist | DX: U07.1 COVID-19 (principal); T14.8XXA Other injury of unspecified body region, initial encounter; L08.9 Local infection of the skin and subcutaneous tissue, unspecified; G30.9 Alzheimer's disease, unspecified; F02.80 Dementia in other diseases classified elsewhere, unspecified severity, without behavioral disturbance, psychotic disturbance, mood disturbance, and anxiety | CPT/HCPCS: 99232; 99233 ==

== ENCOUNTER 2024-08-17 18:44 | Inpatient (IN) | payer OTHER, SELFPAY ==
--- NOTE | 2024-08-17 18:16 | P.HPHOSP_ITS ---
History of Present Illness Date of Service: 08/17/24 Chief Complaint: sepsis/agressive behavior 69 yo male with PMH of uncontrolled IDDM, hypothyroidism, cognitive impairment/ Alzheimer's, dysphagia, HLD, depression, BRENNA, charcot's joint both feet, chronic urinary retention with chronic Parker placement since May of 2023, neuropathy, hypothyroidism, UTI admitted for sepsis, delirium status post right toe amputation early June 2024 at [facility]. Patient had been undergoing rehab at [facility] and in the interim developed some significant agitation and aggressiveness and was transferred to [place] [facility] room on August 09 and diagnosed with UTI. Patient grew Enterobacter and E coli and was treated with Macrodantin and in the interim remained in the emergency room awaiting placement as patient was medically stable. August 15 patient developed fever, tachycardia, delirium and worsening altered mental status that required soft wrist restraints. UA appears negative, blood in urine culture showed no growth, Likely sepsis due to COVID infection/infection at right toe amputation s ite, X-ray negative for osteomyelitis. Patient unable to provide meaningful history, case discussed with patient's healthcare proxy due to patient's aggressive behavior declining to take medications, including insulin refusing lab draws decreased by mouth intake and multiple comorbidities decided hospice MOLST form signed, patient is now being admitted under GI IP hospice for management of aggressive behavior. Review of Systems Review of Systems: Unable to obtain due to mental status. 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 Alcohol intake: never Patient Tobacco Use Status: Tobacco use Unknown service: No Meds Allergies Allergy/AdvReac Type Severity Reaction Status Date / Time No Known Allergies Allergy Verified 08/09/24 13:58 Active Medications: Current Medications Haloperidol Lactate (Haloperidol Lactate Oral Conc 10 Mg/5 Ml Oral.Conc) 0.5 mg PO Q4H PRN PRN Reason: Anxiety/Restlessness/Delirium Lorazepam (Lorazepam 1 Mg Tablet) 1 mg SUBLINGUAL Q4H PRN PRN Reason: anxiety/restlessness Morphine Sulfate (Morphine Sulfate 2 Mg/Ml Cartridge) 2 mg IM Q2H PRN PRN Reason: Discomfort/Shortness of breath Ondansetron HCl (Ondansetron Hcl 4 Mg/2 Ml Vial) 4 mg IVPUSH Q8H PRN PRN Reason: Nausea and Vomiting Physical Exam Const: Other: General in no acute distress. Neck no JVD. CVS regular rate rhythm, Respiratory lungs diminished, no respiratory distress, no wheeze, no rhonchi. Gastrointestinal abdomen soft, bowel sounds audible Extremities no edema. Neuro unable to assess/somnolent Skin no rash/right foot amputation site , no drainage, dressing in place. Assessment and Plan (1) Recent urinary tract infection: Status: Acute (2) Sepsis: Qualifiers: Sepsis acute organ dysfunction status: unspecified Sepsis type: sepsis due to unspecified organism Qualified Code(s): A41.9 - Sepsis, unspecified organism Status: Acute (3) Diabetes: Qualifiers: Diabetes mellitus complication detail: without coma Diabetes mellitus complication status: with hypoglycemia Diabetes mellitus terminal supervisor insulin use: unspecified terminal supervisor insulin use status Diabetes mellitus type: type 2 Qualified Code(s): E11.649 - Type 2 diabetes mellitus with hypoglycemia without coma Status: Acute (4) Charcot joint of ankle: Qualifiers: Laterality: unspecified laterality Qualified Code(s): M14.679 - Charcot's joint, unspecified ankle and foot Status: Acute (5) Amputation toe: Qualifiers: Laterality: right Qualified Code(s): S98.131A - Complete traumatic amputation of one right lesser toe, initial encounter Status: Acute (6) Major neurocognitive disorder due to Alzheimer's disease: Status: Acute Plan 69 yo male with PMH of uncontrolled IDDM, hypothyroidism, cognitive impairment/ Alzheimer's, dysphagia, HLD, depression, BRENNA, charcot's joint both feet, chronic urinary retention with chronic Parker placement since May of 2023, neuropathy, hypothyroidism, UTI admitted for sepsis, delirium status post right toe amputation early June 2024 at [facility]. Patient had been undergoing rehab at [facility] and in the interim developed some significant agitation and aggressiveness and was transferred to [place] [facility] room on August 09 and diagnosed with UTI. Patient grew Enterobacter and E coli and was treated with Macrodantin and in the interim remained in the emergency room awaiting placement as patient was medically stable. August 15 patient developed fever, tachycardia, delirium and worsening altered mental status that required soft wrist restraints. UA appears negative, cultures pending, blood cultures x2 are pending. Likely source of infection is the right toe amputation site. X- ray negative for osteomyelitis. Patient admitted for medical management. 1. Sepsis likely due to COVID/infection at amputation site No recurrent fevers all features of sepsis resolved case discussed with patient's healthcare proxy Quiana Ponce, she wishes patient to be CLIP BAKER and requested no lab draws, no consultation, no medications, patient seen by hospice they agreed for [facility] hospice to manage aggressive behavior, patient will be managed with IV Ativan, IV morphine and Haldol, patient seen by speech therapy patient refused assessment he will be continued on clear liquid diet as tolerated for comfort. 2. Delirium with known cognitive deficits/Alzheimer's dementia continue Ativan and Haldol/further recommendation as per hospice, continue home dose of trazodone. 3. 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 4. Uncontrolled diabetes DC point of care blood sugar monitoring/placed on regular thin liquid diet for comfort as per speech therapy recommendation. Quality Stroke Does the patient have a stroke diagnosis?: No VTE Prior VTE?: No VTE Risk Level:: Medical - moderate - high VTE Device Contraindication: Treatment Not Indicated VTE Drug Contraindication: Treatment Not Indicated
[2024-08-17] MEDS: LORazepam 2 MG/ML VIAL 0.5 MG IVPUSH (19:51)
[2024-08-17] MEDS: traZODone HCL 50 MG TABLET PO (19:51)
--- NOTE | 2024-08-17 20:29 | PHA.MEDREC ---
Pharmacy Consult ? Medication Reconciliation Pharmacy has completed the medication reconciliation. Utilized list from [facility].
[2024-08-17] MEDS: Morphine Sulfate 2 MG/ML CARTRIDGE IM (22:36)
[2024-08-18] MEDS: LORazepam 2 MG/ML VIAL 0.5 MG IVPUSH ×4 (01:41→19:45)
[2024-08-18] MEDS: Morphine Sulfate 2 MG/ML CARTRIDGE IM (04:53)
[2024-08-18] MEDS: ondansetron HCL 4 MG/2 ML VIAL IVPUSH (08:41)
--- NOTE | 2024-08-18 11:42 | MHC.CM.PN ---
PT ADMITTED TO [facility], PER PREVIOUS CM NOTED PT'S UNABLE TO PRIVATELY PAY FOR LTC/ROOM AND BOARD, PT'S WORKING W/FS AND WILL BE BRINGING IN REQUESTED POA/DOCUMENTS PER FS, PER PREVIOUS CM [facility] MAY TAKE PT MH PENDING AND [facility] OFFERING ONCE PT HAS [facility], UPDATED SNF REF PLACED, NO PLAN FOR DC AT THIS TIME, CM WILL CONT TO FOLLOW DC NEEDS.
[2024-08-18] MEDS: LORazepam 1 MG TABLET SUBLINGUAL (11:46)
[2024-08-18 11:50] VITALS: RESP 16
--- NOTE | 2024-08-18 14:16 | P.PNIM_ITS ---
Subjective Subjective Date of Service: 08/18/24 Interval History: Under GIP hospice/backup sawyer Patient awake alert declining breakfast, offers no acute complaints of pain. Later became more agitated/aggressive Review of Systems All other system reviewed and negative Physical Exam Vital Signs: Vital Signs: Last Vital Signs Resp 16 08/18/24 11:50 Const: Other: General in no acute distress. Neck no JVD. CVS regular rate rhythm, Respiratory lungs diminished, no respiratory distress, no wheeze, no rhonchi. Gastrointestinal abdomen soft, bowel sounds audible Extremities no edema. Neuro unable to assess/somnolent Skin no rash/right foot amputation site , no drainage, dressing in place. Objective Data Active Medications Haloperidol Lactate (Haloperidol Lactate Oral Conc 10 Mg/5 Ml Oral.Conc) 0.5 mg PO Q4H PRN PRN Reason: Anxiety/Restlessness/Delirium Lorazepam (Lorazepam 1 Mg Tablet) 1 mg SUBLINGUAL Q4H PRN PRN Reason: anxiety/restlessness Last Admin: 08/18/24 11:46 Dose: 1 mg Documented By: DIXON Lorazepam (Lorazepam 2 Mg/Ml Vial) 0.5 mg IVPUSH Q6H COUNTS INCLUDE 234 BEDS AT THE [facility] Last Admin: 08/18/24 13:19 Dose: 0.5 mg Documented By: YUKO Morphine Sulfate (Morphine Sulfate 2 Mg/Ml Cartridge) 2 mg IM Q2H PRN PRN Reason: Discomfort/Shortness of breath Last Admin: 08/18/24 04:53 Dose: 2 mg Documented By: CHANDRIKA Ondansetron HCl (Ondansetron Hcl 4 Mg/2 Ml Vial) 4 mg IVPUSH Q8H PRN PRN Reason: Nausea and Vomiting Last Admin: 08/18/24 08:41 Dose: 4 mg Documented By: DIXON Trazodone HCl (Trazodone Hcl 25 Mg Halftab) 25 mg PO BID PRN PRN Reason: agitation Trazodone HCl (Trazodone Hcl 50 Mg Tablet) 50 mg PO BEDTIME COUNTS INCLUDE 234 BEDS AT THE [facility] Last Admin: 08/17/24 19:51 Dose: 50 mg Documented By: CHANDRIKA Assessment and Plan (1) Sepsis: Status: Acute (2) Major neurocognitive disorder due to Alzheimer's disease: Status: Acute (3) Amputation toe: Status: Acute (4) COVID: Status: Acute Plan 69 yo male with PMH of uncontrolled IDDM, hypothyroidism, cognitive impairment/ Alzheimer's, dysphagia, HLD, depression, BRENNA, charcot's joint both feet, chronic urinary retention with chronic Parker placement since May of 2023, neuropathy, hypothyroidism, UTI admitted for sepsis, delirium status post right toe amputation early June 2024 at [facility]. Patient had been undergoing rehab at [facility] and in the interim developed some significant agitation and aggressiveness and was transferred to [place] [facility] room on August 09 and diagnosed with UTI. Patient grew Enterobacter and E coli and was treated with Macrodantin and in the interim remained in the emergency room awaiting placement as patient was medically stable. August 15 patient developed fever, tachycardia, delirium and worsening altered mental status that required soft wrist restraints. UA appears negative, cultures pending, blood cultures x2 are pending. Likely source of infection is the right toe amputation site. X- ray negative for osteomyelitis. Patient admitted for medical management. 1. Sepsis likely due to COVID diagnosed 08/09/infection at right foot amputation site. No recurrent fevers all features of sepsis resolved case discussed with patient's healthcare proxy Quiana Ponce, she wishes patient to be MANAGED CARE SPECIALIST and requested no lab draws, no consultation, no medications, patient seen by hospice they rec. for [facility] hospice to manage aggressive behavior. Continue IV Ativan 0.5mg q6h tara, IV morphine and Haldol prn, on clear liquid diet as tolerated for comfort, consult speech to up titrate diet. DC isolation 08/19 2. Delirium with known cognitive deficits/Alzheimer's dementia, continue Ativan and Haldol/further recommendation as per hospice, continue home dose of trazodone. 3. Amputation R 2nd and 3rd toe secondary to dry gangrene 07/11 [facility] seen by General surgery on noted to have thick fibrinous debris, wet-to-dry dressing applied wound appear infected. continue wet-to-dry dressing 4. Uncontrolled diabetes DC point of care blood sugars monitoring/placed on regular thin liquid diet for comfort as per speech therapy recommendation. 5. Chronic urinary retention with chronic Parker. backup sawyer Quality Stroke Does the patient have a stroke diagnosis?: No VTE Prior VTE?: No VTE Risk Level:: Medical - moderate - high VTE Device Contraindication: Treatment Not Indicated VTE Drug Contraindication: Treatment Not Indicated
[2024-08-18 16:02] VITALS: RESP 14
--- NOTE | 2024-08-18 18:39 | MHC.SLORD ---
Speech Language Pathology Order Status: Order placed by Dr. Alexander for swallow eval to assess to advance diet. Patient is admitted to [facility] hospice per EMR. Patient was sleepy at onset of visit, as reported per RN, with minimal response to sternal rub. Patient did wake with stimulation from oral swab on lips, however, pressed his lips together tightly and turning his head way back and forth. Patient was presented with various items to eat and drink, however, shouted NO NO! and Go away! Patient refused to participate, notified MD, RN, and RD via [place] Message.
[2024-08-18] MEDS: Morphine Sulfate 2 MG/ML CARTRIDGE IVPUSH (19:46)
[2024-08-19] MEDS: LORazepam 2 MG/ML VIAL 0.5 MG IVPUSH ×4 (01:25→19:39)
[2024-08-19] MEDS: Morphine Sulfate 2 MG/ML CARTRIDGE IVPUSH ×3 (01:41→21:12)
--- NOTE | 2024-08-19 11:09 | HO.PM.IMPN ---
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 Somnolent, appears comfortable Physical Exam Vital Signs: Vital Signs: Last Vital Signs Resp 14 08/18/24 16:02 Const: Other: Somnolent, brethign on his own, no distress Objective Data Active Medications Haloperidol Lactate (Haloperidol Lactate Oral Conc 10 Mg/5 Ml Oral.Conc) 0.5 mg PO Q4H PRN PRN Reason: Anxiety/Restlessness/Delirium Lorazepam (Lorazepam 1 Mg Tablet) 1 mg SUBLINGUAL Q4H PRN PRN Reason: anxiety/restlessness Last Admin: 08/18/24 11:46 Dose: 1 mg Documented By: DIXON Lorazepam (Lorazepam 2 Mg/Ml Vial) 0.5 mg IVPUSH Q6H [facility] Last Admin: 08/19/24 10:21 Dose: 0.5 mg Documented By: PRASHANT Morphine Sulfate (Morphine Sulfate 2 Mg/Ml Cartridge) 2 mg IVPUSH Q2H PRN PRN Reason: Discomfort/Shortness of breath Last Admin: 08/19/24 01:41 Dose: 2 mg Documented By: AUBRIE Ondansetron HCl (Ondansetron Hcl 4 Mg/2 Ml Vial) 4 mg IVPUSH Q8H PRN PRN Reason: Nausea and Vomiting Last Admin: 08/18/24 08:41 Dose: 4 mg Documented By: DIXON Trazodone HCl (Trazodone Hcl 25 Mg Halftab) 25 mg PO BID PRN PRN Reason: agitation Trazodone HCl (Trazodone Hcl 50 Mg Tablet) 50 mg PO BEDTIME [facility] Last Admin: 08/18/24 19:50 Dose: Not Given Documented By: AUBRIE Non-Admin Reason: Patient Refused Assessment and Plan (1) Sepsis: Status: Acute (2) Major neurocognitive disorder due to Alzheimer's disease: Status: Acute (3) Amputation toe: Status: Acute (4) COVID: Status: Acute Plan 69-year-old male with a past medical history of uncontrolled insulin-dependent diabetes mellitus, hypothyroidism, cognitive impairment/Alzheimer's dementia, dysphagia, hyperlipidemia, depression, obstructive sleep apnea, Charcot's joints in both feet, chronic urinary retention with chronic Parker catheter in place since May 2023, neuropathy, and recurrent urinary tract infections, was admitted for sepsis and delirium. He underwent a right toe amputation in early June 2024 at [facility]. The patient had been receiving rehabilitation at [facility], during which time he developed increasing agitation and aggressive behavior. He was transferred to the [place] [facility] on August 09 and diagnosed with a urinary tract infection. Cultures grew Enterobacter and E. coli; he was treated with Macrodantin while remaining in the emergency room awaiting placement, as he was considered medically stable at that time. On August 15, the patient developed fever, tachycardia, delirium, and worsening altered mental status, necessitating the use of soft wrist restraints. Urinalysis was negative. He was admitted for sepsis, likely related to COVID-19 infection diagnosed on 08/09 and a right foot surgical site infection stemming from the June amputation at [facility]. His clinical course was complicated by delirium and underlying Alzheimer?s dementia. Despite appropriate antibiotic therapy and care, his condition failed to improve. On August 18, after discussion with his and health care proxy, the decision was made to pursue comfort measures only (ADMINISTRATIVE LAW JUDGE) as the next plan of care. He has since been managed with morphine, Ativan, and Haldol as needed for comfort. Glucose monitoring has been discontinued. Plan: continue Comfort care, and adjust meds (morphine, ativan, haldol) as needed for comfort. Quality Stroke Does the patient have a stroke diagnosis?: No VTE Prior VTE?: No VTE Risk Level:: Medical - moderate - high VTE Device Contraindication: Treatment Not Indicated VTE Drug Contraindication: Treatment Not Indicated
[2024-08-19] MEDS: LORazepam 2 MG/ML VIAL 1 MG IVPUSH (22:50)
[2024-08-20] MEDS: LORazepam 2 MG/ML VIAL 1 MG IVPUSH ×5 (04:25→18:44)
--- NOTE | 2024-08-20 09:24 | P.PNIM_ITS ---
Subjective Subjective Date of Service: 08/20/24 Interval History: Under GIP hospice/data processing systems project planner awake, no aparent discomfort Physical Exam Vital Signs: Vital Signs: Last Vital Signs Resp 14 08/18/24 16:02 Const: Other: awake, not saying much, no discomfort noted. Objective Data Active Medications Haloperidol Lactate (Haloperidol Lactate Oral Conc 10 Mg/5 Ml Oral.Conc) 0.5 mg PO Q4H PRN PRN Reason: Anxiety/Restlessness/Delirium Lorazepam (Lorazepam 1 Mg Tablet) 1 mg SUBLINGUAL Q4H PRN PRN Reason: anxiety/restlessness Last Admin: 08/18/24 11:46 Dose: 1 mg Documented By: DIXON Lorazepam (Lorazepam 2 Mg/Ml Vial) 1 mg IVPUSH Q1H PRN PRN Reason: anxiety/restlessness Last Admin: 08/20/24 06:26 Dose: 1 mg Documented By: AUBRIE Morphine Sulfate (Morphine Sulfate 2 Mg/Ml Cartridge) 2 mg IVPUSH Q2H PRN PRN Reason: Discomfort/Shortness of breath Last Admin: 08/19/24 21:12 Dose: 2 mg Documented By: AUBRIE Ondansetron HCl (Ondansetron Hcl 4 Mg/2 Ml Vial) 4 mg IVPUSH Q8H PRN PRN Reason: Nausea and Vomiting Last Admin: 08/18/24 08:41 Dose: 4 mg Documented By: DIXON Trazodone HCl (Trazodone Hcl 25 Mg Halftab) 25 mg PO BID PRN PRN Reason: agitation Trazodone HCl (Trazodone Hcl 50 Mg Tablet) 50 mg PO BEDTIME [facility] Last Admin: 08/19/24 20:00 Dose: Not Given Documented By: AUBRIE Non-Admin Reason: Patient Condition Contraindication Assessment and Plan (1) Sepsis: Status: Acute (2) Major neurocognitive disorder due to Alzheimer's disease: Status: Acute (3) Amputation toe: Status: Acute (4) COVID: Status: Acute Plan 69-year-old male with a past medical history of uncontrolled insulin-dependent diabetes mellitus, hypothyroidism, cognitive impairment/Alzheimer?s dementia, dysphagia, hyperlipidemia, depression, obstructive sleep apnea, Charcot?s joints in both feet, chronic urinary retention with a chronic Parker catheter in place since May 2023, neuropathy, and recurrent urinary tract infections, was admitted for sepsis and delirium. He underwent a right toe amputation in early June 2024 at [facility]. During rehabilitation at [facility], the patient developed increasing agitation and aggressive behavior. He was t ransferred to the [place] [facility] on August 09, where he was diagnosed with a urinary tract infection. Cultures grew Enterobacter and E. coli , and he was treated with Macrodantin while remaining in the emergency department awaiting placement, as he was considered medically stable at that time. On August 15, the patient developed fever, tachycardia, delirium, and worsening altered mental status, requiring the use of soft wrist restraints. Urinalysis was negative. He was admitted for sepsis, likely due to a COVID-19 infection diagnosed on August 09, as well as a right foot surgical site infection related to the June amputation. His hospital course was complicated by persistent delirium on the background of Alzheimer?s dementia. Despite appropriate antibiotic therapy and supportive care, his condition failed to improve. On August 18, after discussions with his and health care proxy, a decision was made to transition to comfort measures only (CHARGE ACCOUNTS AUDIT CLERK). He has since been managed with morphine, Ativan, and Haldol as needed for comfort. Plan: Continue comfort care and adjust medications (morphine, Ativan, Haldol) as needed for symptom management. Quality Stroke Does the patient have a stroke diagnosis?: No VTE Prior VTE?: No VTE Risk Level:: Medical - moderate - high VTE Device Contraindication: Treatment Not Indicated VTE Drug Contraindication: Treatment Not Indicated
[2024-08-20] MEDS: Morphine Sulfate 2 MG/ML CARTRIDGE IVPUSH ×2 (13:20→19:54)
[2024-08-20 19:54] VITALS: RESP 20
[2024-08-20 19:57] VITALS: BP 112/74; PULSE 98; RESP 17; TEMP 36.4; O2SAT 97
[2024-08-20 20:24] VITALS: RESP 20
[2024-08-20] MEDS: Haloperidol Lactate 5 MG/ML VIAL IM (20:37)
[2024-08-21] MEDS: LORazepam 2 MG/ML VIAL 1 MG IVPUSH ×7 (00:39→23:56)
[2024-08-21] MEDS: Haloperidol Lactate 5 MG/ML VIAL IM (01:07)
[2024-08-21] MEDS: Morphine Sulfate 2 MG/ML CARTRIDGE IVPUSH ×4 (02:33→17:40)
[2024-08-21 03:03] VITALS: RESP 20
[2024-08-21 03:42] VITALS: RESP 18
[2024-08-21 03:55] VITALS: TEMP 36.2
[2024-08-21 09:12] VITALS: BP 113/62; PULSE 95; RESP 18; TEMP 36.3; O2SAT 93
[2024-08-21] MEDS: traZODone HCL 25 MG HALFTAB PO (10:30)
[2024-08-21] MEDS: Haloperidol Lactate Oral Conc 10 MG/5 ML ORAL.CONC PO ×2 (10:30→16:11)
--- NOTE | 2024-08-21 12:36 | MHC.SL.SWA ---
Speech Pathologist Impression: Risk of Aspiration, Oropharyngeal Dysphagia Risk of Aspiration Due to: Reduced Cognition Dysphasia Diet Status:Start on PUREE/THIN Liquid Consistency and Strategies for Safe Swallow: Liquid Intake Recommendation: Thin Liquid Intake Strategies: Small Sips No Straws Solid Food Consistency: Dietary Recommendations: Pureed (NDD1) Additional Modifications to Solid Foods: Recommend START on PUREED (NDD1) diet and THIN liquids. Patient requires 1:1 assistance feeding: Administer small bites, watch for laryngeal elevation and cue for swallow as needed, as patient has a tendency to pocket/hold food in the oral cavity and presents with a significantly delayed swallow. Check oral cavity and ensure clearance before giving more bites/sips. Oral Medication Intake: Crushed with Puree Please contact the pharmacy regarding appropriate crushable or liquid drug formulations that are available whenever modified delivery is recommended. Compensatory Strategies and Precautions to be Taken for Safe Swallow: Sitting Upright (90 deg) No Straw Liquids from Cup Liquids from Spoon Small Bites and Sips Alternate Liquids/Solids Rate of Ingestion Change Oral Check Supervision While Eating and Drinking for Safe Swallow: Total Assistance (1:1) Swallowing Recommended Treatments: Compens. Strategy Educat. Recommendation for Speech: 1-2 f/u Mailmaster Clinican/Clinical Fellow: No Supervisory Statement: I have reviewed and agree with the student/clinical fellow's documentation: N/A Speech Language Pathologist: Maxine Salmon M.A., CCC-TERRITORY BUSINESS MANAGER
--- NOTE | 2024-08-21 15:05 | HO.PM.IMPN ---
Subjective Subjective Date of Service: 08/21/24 Interval History: Attempting to pull Parker catheter/restless/no apparent distress Under GI IP hospice/INTERIOR DESIGN PROFESSOR Review of Systems Unable to obtain due to mental status Physical Exam Vital Signs: Vital Signs: Last Vital Signs Temp 97.3 F 08/21/24 09:12 Pulse 95 08/21/24 09:12 Resp 18 08/21/24 09:12 BP 113/62 08/21/24 09:12 Pulse Ox 93 08/21/24 09:12 O2 Del Method Room Air 08/21/24 09:12 Const: Other: General in no acute distress. Neck no JVD. CVS regular rate rhythm, Respiratory lungs diminished, no respiratory distress, no wheeze, no rhonchi. Extremities no edema. Neuro awake ,no distress Skin no rash/right foot amputation site , no drainage, dressing in place. Objective Data Active Medications Haloperidol Lactate (Haloperidol Lactate Oral Conc 10 Mg/5 Ml Oral.Conc) 0.5 mg PO Q4H PRN PRN Reason: Anxiety/Restlessness/Delirium Last Admin: 08/21/24 10:30 Dose: 0.5 mg Documented By: SURINDER Haloperidol Lactate (Haloperidol Lactate 5 Mg/Ml Vial) 0.5 mg IM Q4H PRN PRN Reason: Psychosis Last Admin: 08/21/24 01:07 Dose: 0.5 mg Documented By: LARA Comments: pt woke up and attempting to get oob, pulling at foot dressing unable to redirect. Lorazepam (Lorazepam 1 Mg Tablet) 1 mg SUBLINGUAL Q4H PRN PRN Reason: anxiety/restlessness Last Admin: 08/18/24 11:46 Dose: 1 mg Documented By: DIXON Lorazepam (Lorazepam 2 Mg/Ml Vial) 1 mg IVPUSH Q1H PRN PRN Reason: anxiety/restlessness Last Admin: 08/21/24 08:40 Dose: 1 mg Documented By: SURINDER Morphine Sulfate (Morphine Sulfate 2 Mg/Ml Cartridge) 2 mg IVPUSH Q2H PRN PRN Reason: Discomfort/Shortness of breath Last Admin: 08/21/24 09:26 Dose: 2 mg Documented By: SURINDER Ondansetron HCl (Ondansetron Hcl 4 Mg/2 Ml Vial) 4 mg IVPUSH Q8H PRN PRN Reason: Nausea and Vomiting Last Admin: 08/18/24 08:41 Dose: 4 mg Documented By: DIXON Trazodone HCl (Trazodone Hcl 25 Mg Halftab) 25 mg PO BID PRN PRN Reason: agitation Last Admin: 08/21/24 10:30 Dose: 25 mg Documented By: SURINDER Trazodone HCl (Trazodone Hcl 50 Mg Tablet) 50 mg PO BEDTIME [facility] Last Admin: 08/20/24 19:53 Dose: Not Given Documented By: LARA Non-Admin Reason: Paatient refuses Assessment and Plan (1) COVID: Status: Acute (2) Wound infection: Status: Acute (3) Major neurocognitive disorder due to Alzheimer's disease: Status: Acute Plan 69-year-old male with a past medical history of uncontrolled insulin-dependent diabetes mellitus, hypothyroidism, cognitive impairment/Alzheimer?s dementia, dysphagia, hyperlipidemia, depression, obstructive sleep apnea, Charcot?s joints in both feet, chronic urinary retention with a chronic Parker catheter in place since May 2023, neuropathy, and recurrent urinary tract infections, was admitted for sepsis and delirium. He underwent a right toe amputation in early June 2024 at [facility]. During rehabilitation at [facility], the patient developed increasing agitation and aggressive behavior. He was transferred to the [place] [facility] on August 09, where he was diagnosed with a urinary tract infection. Cultures grew Enterobacter and E. coli, and he was treated with Macrodantin while remaining in the emergency department awaiting placement, as he was considered medically stable at that time. On August 15, the patient developed fever, tachycardia, delirium, and worsening altered mental status, requiring the use of soft wrist restraints. Urinalysis was negative. He was admitted for sepsis, likely due to a COVID-19 infection diagnosed on August 09, as well as a right foot surgical site infection related to the June amputation. His hospital course was complicated by persistent delirium on the background of Alzheimer?s dementia. Despite appropriate antibiotic therapy and supportive care, his condition failed to improve. On August 18, after discussions with his and health care proxy, a decision was made to transition to comfort measures only (INTERIOR DESIGN PROFESSOR). He has since been managed with morphine, Ativan, and Haldol as needed for comfort. Plan: Continue comfort care and adjust medications (morphine, Ativan, Haldol) as needed for symptom management. Order soft wrist restraint since patient recently pulled Parker catheter, restless and keep attempting to remove Parker and to avoid self-harm. Quality Stroke Does the patient have a stroke diagnosis?: No VTE Prior VTE?: No VTE Risk Level:: Medical - moderate - high VTE Device Contraindication: Treatment Not Indicated VTE Drug Contraindication: Treatment Not Indicated
[2024-08-21 15:08] VITALS: PULSE 89; RESP 17
--- NOTE | 2024-08-21 16:29 | MHC.CM.PN ---
PT ADMITTED ON RESPITE UNDER [facility], OF TIME OF THIS NOTE FS STILL AWAITING PT'S TO BRING IN COPY OF POA, MH QING WILL NOT BE SUBMITTED UNTIL POA IS BROUGHT IN, PT HAS NO BED OFFERS AT THIS TIME AND NO PAYOR SOURCE, A FEW FACILITIES INTERESTED HOWEVER NEED MH IN PLACE PRIOR TO ACCEPTING, CM WILL CONT TO FOLLOW DC NEEDS.
[2024-08-22] VITALS (8 sets, daily range): BP systolic 137; BP diastolic 77; PULSE 90; RESP 16–28; TEMP 36.9; O2SAT 96
[2024-08-22] MEDS: Morphine Sulfate 2 MG/ML CARTRIDGE IVPUSH ×8 (01:44→23:28)
[2024-08-22] MEDS: LORazepam 2 MG/ML VIAL 1 MG IVPUSH ×4 (10:41→20:56)
--- NOTE | 2024-08-22 14:19 | P.PNIM_ITS ---
Subjective Subjective Date of Service: 08/22/24 Interval History: Under GIP hospice/UNDERGROUND UTILITY LOCATOR Sitter at bedside, sleeping comfortably. Review of Systems Unable to obtain due to mental status Physical Exam Vital Signs: Vital Signs: Last Vital Signs Temp 97.3 F 08/21/24 09:12 Pulse 89 08/21/24 15:08 Resp 24 H 08/22/24 13:20 BP 113/62 08/21/24 09:12 Pulse Ox 93 08/21/24 09:12 O2 Del Method Room Air 08/21/24 09:12 Const: Other: General resting comfortably in no acute distress. Neck no JVD. CVS regular rate rhythm, Respiratory no respiratory distress Extremities no edema. Skin no rash/right foot amputation site , no drainage, dressing in place. Objective Data Active Medications Haloperidol Lactate (Haloperidol Lactate Oral Conc 10 Mg/5 Ml Oral.Conc) 0.5 mg PO Q4H PRN PRN Reason: Anxiety/Restlessness/Delirium Last Admin: 08/21/24 16:11 Dose: 0.5 mg Documented By: SURINDER Haloperidol Lactate (Haloperidol Lactate 5 Mg/Ml Vial) 0.5 mg IM Q4H PRN PRN Reason: Psychosis Last Admin: 08/21/24 01:07 Dose: 0.5 mg Documented By: LARA Comments: pt woke up and attempting to get oob, pulling at foot dressing unable to redirect. Lorazepam (Lorazepam 1 Mg Tablet) 1 mg SUBLINGUAL Q4H PRN PRN Reason: anxiety/restlessness Last Admin: 08/18/24 11:46 Dose: 1 mg Documented By: DIXON Lorazepam (Lorazepam 2 Mg/Ml Vial) 1 mg IVPUSH Q1H PRN PRN Reason: anxiety/restlessness Last Admin: 08/22/24 10:41 Dose: 1 mg Documented By: TWIN Morphine Sulfate (Morphine Sulfate 2 Mg/Ml Cartridge) 2 mg IVPUSH Q2H PRN PRN Reason: Discomfort/Shortness of breath Last Admin: 08/22/24 13:20 Dose: 2 mg Documented By: TWIN Ondansetron HCl (Ondansetron Hcl 4 Mg/2 Ml Vial) 4 mg IVPUSH Q8H PRN PRN Reason: Nausea and Vomiting Last Admin: 08/18/24 08:41 Dose: 4 mg Documented By: DIXON Trazodone HCl (Trazodone Hcl 25 Mg Halftab) 25 mg PO BID PRN PRN Reason: agitation Last Admin: 08/21/24 10:30 Dose: 25 mg Documented By: SURINDER Trazodone HCl (Trazodone Hcl 50 Mg Tablet) 50 mg PO BEDTIME [facility] Last Admin: 08/21/24 21:55 Dose: Not Given Documented By: ROJELIO Non-Admin Reason: pt asleep, can give prn if needed Assessment and Plan (1) COVID: Status: Acute (2) Wound infection: Status: Acute (3) Major neurocognitive disorder due to Alzheimer's disease: Status: Acute Plan 69-year-old male with a past medical history of uncontrolled insulin-dependent diabetes mellitus, hypothyroidism, cognitive impairment/Alzheimer?s dementia, dysphagia, hyperlipidemia, depression, obstructive sleep apnea, Charcot?s joints in both feet, chronic urinary retention with a chronic Parker catheter in place since May 2023, neuropathy, and recurrent urinary tract infections, was admitted for sepsis and delirium. He underwent a right toe amputation in early June 2024 at [facility]. During rehabilitation at [facility], the patient developed increasing agitation and aggressive behavior. He was transferred to the [place] [facility] on August 09, where he was diagnosed with a urinary tract infection. Cultures grew Enterobacter and E. coli , and he was treated with Macrodantin while remaining in the emergency department awaiting placement, as he was considered medically stable at that time. On August 15, the patient developed fever, tachycardia, delirium, and worsening altered mental status, requiring the use of soft wrist restraints. Urinalysis was negative. He was admitted for sepsis, likely due to a COVID-19 infection diagnosed on August 09, as well as a right foot surgical site infection related to the June amputation. His hospital course was complicated by persistent delirium on the background of Alzheimer?s dementia. Despite appropriate antibiotic therapy and supportive care, his condition failed to improve. On August 18, after discussions with his and health care proxy, a decision was made to transition to comfort measures only (UNDERGROUND UTILITY LOCATOR). He has since been managed with morphine, Ativan, and Haldol as needed for comfort. Plan: Continue comfort care and adjust medications (morphine, Ativan, Haldol) as needed for symptom management. DC soft restraints since no behavioral issues noted Hospice nurse recommend scheduled IV morphine q.4 hours, continue as needed/as above Quality Stroke Does the patient have a stroke diagnosis?: No VTE Prior VTE?: No VTE Risk Level:: Medical - moderate - high VTE Device Contraindication: Treatment Not Indicated VTE Drug Contraindication: Treatment Not Indicated
--- NOTE | 2024-08-22 15:32 | HO.WOUND ---
Wound Consult: Initial 69yr old male? admitted to [facility] on 08/15/24 - See progress notes and H&P for detailed history.? Wound consult follow up for Right Foot.? Patient recently transitioned to Comfort Focused Care - all topical dressings should maintain comfort, and maintain dignity along with goals of care comfort focused. At bedside noted for dressing change completed this shift - will defer to tomorrow for assessment. Details from previous assessment: Chart review completed - Seen by Dr. Isbell from the General Surgery team. He recommends wet to dry dressing changes daily. Will defer to General surgery team for continued topical recommendations. Will loosely follow along. Right Foot Etiology: Surgical Dehiscence Wound Bed: yellow waldrop slough noted to wound bed - sutures observed in wound bed Drainage / Odor: [place] Edges: ? unattached Tanvi wound: pink erythema Goals of Treatment: ? defer to General Surgery wet to dry dressing Recommendations: 1. Turn and Reposition every 2 hours and as needed for patient comfort.? Use pillows or wedges to support off loading positions. 2. Off Load all bony prominences with use of pillows and heel boots if needed.? Apply Preventative foams where needed. ? 3. Monitor for incontinence and moisture control, use barrier creams when needed for prevention and treatment. 4. Provide adequate and supplemental nutrition.? 5. Order low air loss mattress. 6. When applicable maintain blood glucose levels per Providers order. Right Foot - Elevate heels off of bed surface with pillows. Cleanse with NS moist gauze, Apply skin prep to periwound. Apply saline moist gauze, cover with dry gauze, ABD pad and wrap. Change daily. Re-consult wound care Nurse for wound deterioration or wound changes.
[2024-08-23] MEDS: Morphine Sulfate 2 MG/ML CARTRIDGE IVPUSH ×5 (05:08→21:06)
[2024-08-23] MEDS: LORazepam 2 MG/ML VIAL 1 MG IVPUSH (07:27)
[2024-08-23 10:42] VITALS: RESP 22
--- NOTE | 2024-08-23 12:25 | HO.PM.IMPN ---
Subjective Subjective Date of Service: 08/23/24 Interval History: Under [facility] hosp[facility]/NPO Restless/no acute distress Review of Systems Unable to obtain due to mental status Physical Exam Vital Signs: Vital Signs: Last Vital Signs Temp 98.5 F 08/22/24 19:23 Pulse 90 08/22/24 19:23 Resp 20 08/22/24 19:23 BP 137/77 08/22/24 19:23 Pulse Ox 96 08/22/24 19:23 O2 Del Method Room Air 08/22/24 19:23 Const: Other: General restless, in no acute distress. Neck no JVD. CVS regular rate rhythm, Respiratory no respiratory distress Extremities no edema. Skin no rash/right foot amputation site , no drainage, dressing in place. Objective Data Active Medications Haloperidol Lactate (Haloperidol Lactate Oral Conc 10 Mg/5 Ml Oral.Conc) 0.5 mg PO Q4H PRN PRN Reason: Anxiety/Restlessness/Delirium Last Admin: 08/21/24 16:11 Dose: 0.5 mg Documented By: SURINDER Haloperidol Lactate (Haloperidol Lactate 5 Mg/Ml Vial) 0.5 mg IM Q4H PRN PRN Reason: Psychosis Last Admin: 08/21/24 01:07 Dose: 0.5 mg Documented By: LARA Comments: pt woke up and attempting to get oob, pulling at foot dressing unable to redirect. Lorazepam (Lorazepam 1 Mg Tablet) 1 mg SUBLINGUAL Q4H PRN PRN Reason: anxiety/restlessness Last Admin: 08/18/24 11:46 Dose: 1 mg Documented By: DIXON Morphine Sulfate (Morphine Sulfate 2 Mg/Ml Cartridge) 2 mg IVPUSH Q2H PRN PRN Reason: Discomfort/Shortness of breath Last Admin: 08/22/24 20:27 Dose: 2 mg Documented By: PREETI Morphine Sulfate (Morphine Sulfate 2 Mg/Ml Cartridge) 2 mg IVPUSH Q4H [facility]; Protocol Last Admin: 08/23/24 10:42 Dose: 2 mg Documented By: TWIN Ondansetron HCl (Ondansetron Hcl 4 Mg/2 Ml Vial) 4 mg IVPUSH Q8H PRN PRN Reason: Nausea and Vomiting Last Admin: 08/18/24 08:41 Dose: 4 mg Documented By: DIXON Trazodone HCl (Trazodone Hcl 25 Mg Halftab) 25 mg PO BID PRN PRN Reason: agitation Last Admin: 08/21/24 10:30 Dose: 25 mg Documented By: SURINDER Trazodone HCl (Trazodone Hcl 50 Mg Tablet) 50 mg PO BEDTIME KENNY Last Admin: 08/22/24 21:33 Dose: Not Given Documented By: PREETI Non-Admin Reason: NPO Assessment and Plan (1) COVID: Status: Acute (2) Wound infection: Status: Acute (3) Major neurocognitive disorder due to Alzheimer's disease: Status: Acute Plan 69-year-old male with a past medical history of uncontrolled insulin-dependent diabetes mellitus, hypothyroidism, cognitive impairment/Alzheimer?s dementia, dysphagia, hyperlipidemia, depression, obstructive sleep apnea, Charcot?s joints in both feet, chronic urinary retention with a chronic Parker catheter in place since May 2023, neuropathy, and recurrent urinary tract infections, was admitted for sepsis and delirium. He underwent a right toe amputation in early June 2024 at [facility]. During rehabilitation at [facility], the patient developed increasing agitation and aggressive behavior. He was transferred to the [place] [facility] Department on August 09, where he was diagnosed with a urinary tract infection. Cultures grew Enterobacter and E. coli, and he was treated with Macrodantin while remaining in the emergency department awaiting placement, as he was considered medically stable at that time. On August 15, the patient developed fever, tachycardia, delirium, and worsening altered mental status, requiring the use of soft wrist restraints. Urinalysis was negative. He was admitted for sepsis, likely due to a COVID-19 infection diagnosed on August 09, as well as a right foot surgical site infection related to the June amputation. His hospital course was complicated by persistent delirium on the background of Alzheimer?s dementia. Despite appropriate antibiotic therapy and supportive care, his condition failed to improve. On August 18, after discussions with his and health care proxy, a decision was made to transition to comfort measures only (FAMILY LAW ATTORNEY). He has since been managed with morphine, Ativan, and Haldol as needed for comfort. Plan: Continue comfort care and adjust medications (morphine, Ativan, Haldol) as needed for symptom management. on scheduled IV morphine q.4 hours, continue as needed/as above Quality Stroke Does the patient have a stroke diagnosis?: No VTE Prior VTE?: No VTE Risk Level:: Medical - moderate - high VTE Device Contraindication: Treatment Not Indicated VTE Drug Contraindication: Treatment Not Indicated
[2024-08-23 14:22] VITALS: RESP 12
--- NOTE | 2024-08-23 14:59 | MHC.SLORD ---
Speech Language Pathology Order Status: Pt is [facility], spiritual business travel consultant from [facility] present today. RN noted pt has sublingual meds, asked SUPERVISOR RUBBER COVERING to assess swallow. Pt sleeping with open mouth posture, not appropriate for PO trials. SUPERVISOR RUBBER COVERING to follow as indicated.
[2024-08-23] MEDS: LORazepam 1 MG TABLET SUBLINGUAL ×2 (15:50→20:55)
--- NOTE | 2024-08-23 16:25 | MHC.CM.PN ---
Addendum entered by Pinky Wang RN 08/23/24 16:41: CLARIFICATION CM MET W/HOSPICE SW AND SHE REPORTED PT WAS ADMITTED ON [facility] AND WAS NOT UNDER RESPITE. Original Note: EMR REVIEWED, PT REMAINS ADMITTED UNDER HOSPICE, FS STILL AWAITING PT'S TO BRING IN REMAINING DOCUMENTS FOR MH QING, CM WILL CONT TO FOLLOW DC NEEDS.
[2024-08-23 16:43] VITALS: RESP 12
[2024-08-23 18:08] VITALS: RESP 14
--- NOTE | 2024-08-23 20:04 | HO.WOUND ---
Wound Consult: Follow up 69yr old male? admitted to [facility] [place] 08/15/24 - See progress notes and H&P for detailed history.? Wound consult follow up for Right Foot.? Patient recently transitioned to Comfort Focused Care - all topical dressings should maintain comfort, and maintain dignity along with goals of care comfort focused. Right Foot Nonhealing surgical wound remains unchanged. Dressing removed waldrop yellow drainage observed no odor noted. The wound bed remains with adherent yellow slough and sutures observed. Will consider changing dressing to Durafiber to be able to extend the life of the dressing however at this time direct care team reports patient is very active in bed and is constantly moving his feet loosening the dressing and thus must be changed Q Shift at this time. Will continue to monitor for benefits of prolonging dressing changes for comfort. At this time direct care staff and observed today he did not appear to be in discomfort when repositioned and during dressing changes. No new dressing recommendations needed at this time. Sacrum observed for redness. Foam dressing in place. Recommend foam dressing application to aid in pressure redistribution and protect from friction. Recommendations: 1. Turn and Reposition every 2 hours and as needed for patient comfort.? Use pillows or wedges to support off loading positions. 2. Off Load all bony prominences with use of pillows and heel boots if needed.? Apply Preventative foams where needed. ? 3. Monitor for incontinence and moisture control, use barrier creams when needed for prevention and treatment. 4. Provide adequate and supplemental nutrition within PROGRAM OFFICER care guidelines.? 5. Continue low air loss mattress. 6. When applicable maintain blood glucose levels per Providers order. Right Foot - Elevate heels off of bed surface with pillows. Cleanse with NS moist gauze, Apply skin prep to periwound. Apply saline moist gauze, cover with dry gauze, ABD pad and wrap. Change daily. Sacrum - Apply skin prep allow to dry. Cover with Foam dressing, peel back and assess Q shift and change every 5 days and PRN. Details from previous assessment: Chart review completed - Seen by Dr. Isbell from the General Surgery team. He recommends wet to dry dressing changes daily. Will defer to General surgery team for continued topical recommendations. Will loosely follow along. Right Foot Etiology: Surgical Dehiscence Wound Bed: yellow waldrop slough noted to wound bed - sutures observed in wound bed Drainage / Odor: [place] Edges: ? unattached Tanvi wound: pink erythema Goals of Treatment: ? defer to General Surgery wet to dry dressing Recommendations: 1. Turn and Reposition every 2 hours and as needed for patient comfort.? Use pillows or wedges to support off loading positions. 2. Off Load all bony prominences with use of pillows and heel boots if needed.? Apply Preventative foams where needed. ? 3. Monitor for incontinence and moisture control, use barrier creams when needed for prevention and treatment. 4. Provide adequate and supplemental nutrition.? 5. Order low air loss mattress. 6. When applicable maintain blood glucose levels per Providers order. Right Foot - Elevate heels off of bed surface with pillows. Cleanse with NS moist gauze, Apply skin prep to periwound. Apply saline moist gauze, cover with dry gauze, ABD pad and wrap. Change daily. Re-consult wound care Nurse for wound deterioration or wound changes.
[2024-08-24] MEDS: Haloperidol Lactate Oral Conc 10 MG/5 ML ORAL.CONC PO (00:24)
[2024-08-24] MEDS: Morphine Sulfate 2 MG/ML CARTRIDGE IVPUSH ×6 (01:45→22:32)
[2024-08-24] MEDS: LORazepam 1 MG TABLET SUBLINGUAL ×2 (03:40→08:21)
[2024-08-24] MEDS: ondansetron HCL 4 MG/2 ML VIAL IVPUSH (04:00)
--- NOTE | 2024-08-24 12:32 | P.PNIM_ITS ---
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 Review of Systems Unable to obtain due to mental status Physical Exam Vital Signs: Vital Signs: Last Vital Signs Temp 98.5 F 08/22/24 19:23 Pulse 90 08/22/24 19:23 Resp 14 08/23/24 18:08 BP 137/77 08/22/24 19:23 Pulse Ox 96 08/22/24 19:23 O2 Del Method Room Air 08/22/24 19:23 Const: Other: General calm, in no acute distress. Neck no JVD. CVS regular rate rhythm, Respiratory no respiratory distress Extremities no edema. Skin no rash/right foot amputation site , no drainage, dressing in place. Objective Data Active Medications Haloperidol Lactate (Haloperidol Lactate Oral Conc 10 Mg/5 Ml Oral.Conc) 0.5 mg PO Q4H PRN PRN Reason: Anxiety/Restlessness/Delirium Last Admin: 08/24/24 00:24 Dose: 0.5 mg Documented By: PREETI Haloperidol Lactate (Haloperidol Lactate 5 Mg/Ml Vial) 0.5 mg IM Q4H PRN PRN Reason: Psychosis Last Admin: 08/21/24 01:07 Dose: 0.5 mg Documented By: LARA Comments: pt woke up and attempting to get oob, pulling at foot dressing unable to redirect. Lorazepam (Lorazepam 1 Mg Tablet) 1 mg SUBLINGUAL Q4H PRN PRN Reason: anxiety/restlessness Last Admin: 08/24/24 08:21 Dose: 1 mg Documented By: ROJELIO Morphine Sulfate (Morphine Sulfate 2 Mg/Ml Cartridge) 2 mg IVPUSH Q4H [facility]; Protocol Last Admin: 08/24/24 10:39 Dose: 2 mg Documented By: ROJELIO Ondansetron HCl (Ondansetron Hcl 4 Mg/2 Ml Vial) 4 mg IVPUSH Q8H PRN PRN Reason: Nausea and Vomiting Last Admin: 08/24/24 04:00 Dose: 4 mg Documented By: PREETI Trazodone HCl (Trazodone Hcl 25 Mg Halftab) 25 mg PO BID PRN PRN Reason: agitation Last Admin: 08/21/24 10:30 Dose: 25 mg Documented By: SURINDER Trazodone HCl (Trazodone Hcl 50 Mg Tablet) 50 mg PO BEDTIME KENNY Last Admin: 08/23/24 20:32 Dose: Not Given Documented By: PREETI Non-Admin Reason: NPO Assessment and Plan (1) Major neurocognitive disorder due to Alzheimer's disease: Status: Acute Plan 69-year-old male with a past medical history of uncontrolled insulin-dependent diabetes mellitus, hypothyroidism, cognitive impairment/Alzheimer?s dementia, dysphagia, hyperlipidemia, depression, obstructive sleep apnea, Charcot?s joints in both feet, chronic urinary retention with a chronic Parker catheter in place since May 2023, neuropathy, and recurrent urinary tract infections, was admitted for sepsis and delirium. He underwent a right toe amputation in early June 2024 at [facility]. During rehabilitation at [facility], the patient developed increasing agitation and aggressive behavior. He was transferred to the [place] Emergency Department on August 09, where he was diagnosed with a urinary tract infection. Cultures grew Enterobacter and E. coli , and he was treated with Macrodantin while remaining in the emergency department awaiting placement, as he was considered medically stable at that time. On August 15, the patient developed fever, tachycardia, delirium, and worsening altered mental status, requiring the use of soft wrist restraints. Urinalysis was negative. He was admitted for sepsis, likely due to a COVID-19 infection diagnosed on August 09, as well as a right foot surgical site infection related to the June amputation. His hospital course was complicated by persistent delirium on the background of Alzheimer?s dementia. Despite appropriate antibiotic therapy and supportive care, his condition failed to improve. 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 He has since been managed with morphine, Ativan, and Haldol as needed for comfort. Plan: Continue comfort care and adjust medications (morphine, Ativan, Haldol) as needed for symptom management. on scheduled IV morphine q.4 hours, continue as needed/as above Quality Stroke Does the patient have a stroke diagnosis?: No VTE Prior VTE?: No VTE Risk Level:: Medical - moderate - high VTE Device Contraindication: Treatment Not Indicated VTE Drug Contraindication: Treatment Not Indicated
--- NOTE | 2024-08-24 14:09 | MHC.SLORD ---
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 Will D/C speech service.
[2024-08-24 15:28] VITALS: RESP 14
[2024-08-24 18:50] VITALS: RESP 16
[2024-08-25] MEDS: Morphine Sulfate 2 MG/ML CARTRIDGE IVPUSH ×6 (02:27→23:13)
--- NOTE | 2024-08-25 08:40 | MHC.CM.PN ---
EMR REVIEWED, PT ON [facility]/TALK SHOW HOST, NO DC PLANNED AT THIS TIME, PT UNABLE TO TXFR TO SNF NO PAYOR SOURCE, MH QING IN PROGRESS, CM WILL CONT TO FOLLOW DC NEEDS.
[2024-08-25] MEDS: LORazepam 1 MG TABLET SUBLINGUAL (11:44)
--- NOTE | 2024-08-25 13:11 | P.PNIM_ITS ---
Subjective Subjective Date of Service: 08/25/24 Interval History: Awake alert asking for ice cream No behavioral issues noted, moves around in bed. Review of Systems Unable to obtain Physical Exam Vital Signs: Vital Signs: Last Vital Signs Temp 98.5 F 08/22/24 19:23 Pulse 90 08/22/24 19:23 Resp 16 08/24/24 18:50 BP 137/77 08/22/24 19:23 Pulse Ox 96 08/22/24 19:23 O2 Del Method Room Air 08/22/24 19:23 Const: Other: General calm, in no acute distress. Neck no JVD. CVS regular rate rhythm, Respiratory no respiratory distress Extremities no edema. Skin no rash/right foot amputation site , no drainage, dressing in place. Objective Data Active Medications Haloperidol Lactate (Haloperidol Lactate Oral Conc 10 Mg/5 Ml Oral.Conc) 0.5 mg PO Q4H PRN PRN Reason: Anxiety/Restlessness/Delirium Last Admin: 08/24/24 00:24 Dose: 0.5 mg Documented By: PREETI Haloperidol Lactate (Haloperidol Lactate 5 Mg/Ml Vial) 0.5 mg IM Q4H PRN PRN Reason: Psychosis Last Admin: 08/21/24 01:07 Dose: 0.5 mg Documented By: LARA Comments: pt woke up and attempting to get oob, pulling at foot dressing unable to redirect. Lorazepam (Lorazepam 1 Mg Tablet) 1 mg SUBLINGUAL Q4H PRN PRN Reason: anxiety/restlessness Last Admin: 08/25/24 11:44 Dose: 1 mg Documented By: ROJELIO Morphine Sulfate (Morphine Sulfate 2 Mg/Ml Cartridge) 2 mg IVPUSH Q4H [facility]; Protocol Last Admin: 08/25/24 10:34 Dose: 2 mg Documented By: ROJELIO Ondansetron HCl (Ondansetron Hcl 4 Mg/2 Ml Vial) 4 mg IVPUSH Q8H PRN PRN Reason: Nausea and Vomiting Last Admin: 08/24/24 04:00 Dose: 4 mg Documented By: PREETI Trazodone HCl (Trazodone Hcl 25 Mg Halftab) 25 mg PO BID PRN PRN Reason: agitation Last Admin: 08/21/24 10:30 Dose: 25 mg Documented By: SURINDER Trazodone HCl (Trazodone Hcl 50 Mg Tablet) 50 mg PO BEDTIME KENNY Last Admin: 08/24/24 20:43 Dose: Not Given Documented By: PREETI Non-Admin Reason: NPO Assessment and Plan (1) Amputation toe: Status: Acute (2) Major neurocognitive disorder due to Alzheimer's disease: Status: Acute (3) COVID: Status: Acute Plan 69-year-old male with a past medical history of uncontrolled insulin-dependent diabetes mellitus, hypothyroidism, cognitive impairment/Alzheimer?s dementia, dysphagia, hyperlipidemia, depression, obstructive sleep apnea, Charcot?s joints in both feet, chronic urinary retention with a chronic Parker catheter in place since May 2023, neuropathy, and recurrent urinary tract infections, was admitted for sepsis and delirium. He underwent a right toe amputation in early June 2024 at [facility]. During rehabilitation at [facility], the patient developed increasing agitation and aggressive behavior. He was transferred to the [place] Emergency Department on August 09, where he was diagnosed with a urinary tract infection. Cultures grew Enterobacter and E. coli , and he was treated with Macrodantin while remaining in the emergency department awaiting placement, as he was considered medically stable at that time. On August 15, the patient developed fever, tachycardia, delirium, and worsening altered mental status, requiring the use of soft wrist restraints. Urinalysis was negative. He was admitted for sepsis, likely due to a COVID-19 infection diagnosed on August 09, as well as a right foot surgical site infection related to the June amputation. His hospital course was complicated by persistent delirium on the background of Alzheimer?s dementia. Despite appropriate antibiotic therapy and supportive care, his condition failed to improve. 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 He has since been managed with morphine, Ativan, and Haldol as needed for comfort. Plan: Continue comfort care on morphine scheduled 2 mg q.4 hours, and on sublingual Ativan,im Haldol as needed for symptom management. Spoke with [facility] hosp[facility] nurse she feels is imminent. Quality Stroke Does the patient have a stroke diagnosis?: No VTE Prior VTE?: No VTE Risk Level:: Medical - moderate - high VTE Device Contraindication: Treatment Not Indicated VTE Drug Contraindication: Treatment Not Indicated
[2024-08-25] MEDS: ondansetron HCL 4 MG/2 ML VIAL IVPUSH (21:42)
[2024-08-26] MEDS: traZODone HCL 25 MG HALFTAB PO (01:04)
[2024-08-26] MEDS: LORazepam 1 MG TABLET SUBLINGUAL ×2 (01:04→23:44)
[2024-08-26] MEDS: Morphine Sulfate 2 MG/ML CARTRIDGE IVPUSH ×5 (02:55→21:58)
[2024-08-26 09:04] VITALS: RESP 16
--- NOTE | 2024-08-26 14:26 | HO.PM.IMPN ---
Subjective Subjective Date of Service: 08/26/24 Interval History: No acute issues overnight Review of Systems Unable to obtain Physical Exam Vital Signs: Vital Signs: Last Vital Signs Temp 98.5 F 08/22/24 19:23 Pulse 90 08/22/24 19:23 Resp 16 08/26/24 09:04 BP 137/77 08/22/24 19:23 Pulse Ox 96 08/22/24 19:23 O2 Del Method Room Air 08/22/24 19:23 Const: Other: Awake alert no acute distress Resp: Other: Clear to auscultation bilaterally no rales rhonchi or wheezes Cardio: Other: No S4; positive S1-S2; no S3 murmurs rubs or gallops Extrem: Other: No edema bilaterally Objective Data Active Medications Haloperidol Lactate (Haloperidol Lactate Oral Conc 10 Mg/5 Ml Oral.Conc) 0.5 mg PO Q4H PRN PRN Reason: Anxiety/Restlessness/Delirium Last Admin: 08/24/24 00:24 Dose: 0.5 mg Documented By: PREETI Haloperidol Lactate (Haloperidol Lactate 5 Mg/Ml Vial) 0.5 mg IM Q4H PRN PRN Reason: Psychosis Last Admin: 08/21/24 01:07 Dose: 0.5 mg Documented By: LARA Comments: pt woke up and attempting to get oob, pulling at foot dressing unable to redirect. Lorazepam (Lorazepam 1 Mg Tablet) 1 mg SUBLINGUAL Q4H PRN PRN Reason: anxiety/restlessness Last Admin: 08/26/24 01:04 Dose: 1 mg Documented By: MARQUES Morphine Sulfate (Morphine Sulfate 2 Mg/Ml Cartridge) 2 mg IVPUSH Q4H [facility]; Protocol Last Admin: 08/26/24 09:04 Dose: 2 mg Documented By: NYASIA Ondansetron HCl (Ondansetron Hcl 4 Mg/2 Ml Vial) 4 mg IVPUSH Q8H PRN PRN Reason: Nausea and Vomiting Last Admin: 08/25/24 21:42 Dose: 4 mg Documented By: MARQUES Trazodone HCl (Trazodone Hcl 25 Mg Halftab) 25 mg PO BID PRN PRN Reason: agitation Last Admin: 08/26/24 01:04 Dose: 25 mg Documented By: MARQUES Trazodone HCl (Trazodone Hcl 50 Mg Tablet) 50 mg PO BEDTIME KENNY Last Admin: 08/25/24 22:48 Dose: Not Given Documented By: MARQUES Non-Admin Reason: Nausea Assessment and Plan (1) Major neurocognitive disorder due to Alzheimer's disease: Status: Acute Plan 69-year-old male with a past medical history of uncontrolled insulin-dependent diabetes mellitus, hypothyroidism, cognitive impairment/Alzheimer?s dementia, dysphagia, hyperlipidemia, depression, obstructive sleep apnea, Charcot?s joints in both feet, chronic urinary retention with a chronic Parker catheter in place since May 2023, neuropathy, and recurrent urinary tract infections, was admitted for sepsis and delirium. He underwent a right toe amputation in early June 2024 at [facility]. During rehabilitation at [facility], the patient developed increasing agitation and aggressive behavior. He was transferred to the [place] Emergency Department on August 09, where he was diagnosed with a urinary tract infection. Cultures grew Enterobacter and E. coli, and he was treated with Macrodantin while remaining in the emergency department awaiting placement, as he was considered medically stable at that time. On August 15, the patient developed fever, tachycardia, delirium, and worsening altered mental status, requiring the use of soft wrist restraints. Urinalysis was negative. He was admitted for sepsis, likely due to a COVID-19 infection diagnosed on August 09, as well as a right foot surgical site infection related to the June amputation. His hospital course was complicated by persistent delirium on the background of Alzheimer?s dementia. Despite appropriate antibiotic therapy and supportive care, his condition failed to improve. On August 18, after discussions with his and health care proxy, a decision was made to transition to comfort measures only ([employer]). He has since been managed with morphine, Ativan, and Haldol as needed for comfort. Plan: Continue comfort care on morphine scheduled 2 mg q.4 hours, and on sublingual Ativan,im Haldol as needed for symptom management. Spoke with [facility] nurse she feels is imminent. Quality Stroke Does the patient have a stroke diagnosis?: No VTE Prior VTE?: No VTE Risk Level:: Medical - moderate - high VTE Device Contraindication: Treatment Not Indicated VTE Drug Contraindication: Treatment Not Indicated
[2024-08-26 18:50] VITALS: BP 137/61; PULSE 63; RESP 16; TEMP 36.1; O2SAT 94
--- NOTE | 2024-08-26 19:22 | PC.NURSE ---
pt arrived to unit and settled into bed. He denies complaint and was cooperative with assessment. pink foam c/d/i to coccyx. small fissure in perianal area. cream applied. dow cath draining light jelena urine. camera set up and sitter at bedside.
[2024-08-26] MEDS: traZODone HCL 50 MG TABLET PO (21:57)
[2024-08-27] MEDS: Morphine Sulfate 2 MG/ML CARTRIDGE IVPUSH ×5 (02:20→22:36)
--- NOTE | 2024-08-27 12:05 | P.PNIM_ITS ---
Subjective Subjective Date of Service: 08/27/24 Interval History: No acute issues overnight Review of Systems Unable to obtain Physical Exam Vital Signs: Vital Signs: Last Vital Signs Temp 97 F 08/26/24 18:50 Pulse 63 08/26/24 18:50 Resp 16 08/26/24 18:50 BP 137/61 08/26/24 18:50 Pulse Ox 94 08/26/24 18:50 O2 Del Method Room Air 08/26/24 18:50 Const: Other: Awake alert no acute distress Resp: Other: Clear to auscultation bilaterally no rales rhonchi or wheezes Cardio: Other: No S4; positive S1-S2; no S3 murmurs rubs or gallops Extrem: Other: No edema bilaterally Objective Data Active Medications Haloperidol Lactate (Haloperidol Lactate Oral Conc 10 Mg/5 Ml Oral.Conc) 0.5 mg PO Q4H PRN PRN Reason: Anxiety/Restlessness/Delirium Last Admin: 08/24/24 00:24 Dose: 0.5 mg Documented By: PREETI Haloperidol Lactate (Haloperidol Lactate 5 Mg/Ml Vial) 0.5 mg IM Q4H PRN PRN Reason: Psychosis Last Admin: 08/21/24 01:07 Dose: 0.5 mg Documented By: LARA Comments: pt woke up and attempting to get oob, pulling at foot dressing unable to redirect. Morphine Sulfate (Morphine Sulfate 2 Mg/Ml Cartridge) 2 mg IVPUSH Q4H KENNY; Protocol Last Admin: 08/27/24 11:18 Dose: 2 mg Documented By: GISEL Ondansetron HCl (Ondansetron Hcl 4 Mg/2 Ml Vial) 4 mg IVPUSH Q8H PRN PRN Reason: Nausea and Vomiting Last Admin: 08/25/24 21:42 Dose: 4 mg Documented By: MARQUES Trazodone HCl (Trazodone Hcl 25 Mg Halftab) 25 mg PO BID PRN PRN Reason: agitation Last Admin: 08/26/24 01:04 Dose: 25 mg Documented By: MARQUES Trazodone HCl (Trazodone Hcl 50 Mg Tablet) 50 mg PO BEDTIME KENNY Last Admin: 08/26/24 21:57 Dose: 50 mg Documented By: MARQUES Assessment and Plan (1) Major neurocognitive disorder due to Alzheimer's disease: Status: Acute Plan 69-year-old male with a past medical history of uncontrolled insulin-dependent diabetes mellitus, hypothyroidism, cognitive impairment/Alzheimer?s dementia, dysphagia, hyperlipidemia, depression, obstructive sleep apnea, Charcot?s joints in both feet, chronic urinary retention with a chronic Parker catheter in place since May 2023, neuropathy, and recurrent urinary tract infections, was admitted for sepsis and delirium. He underwent a right toe amputation in early June 2024 at [facility]. During rehabilitation at [facility], the patient developed increasing agitation and aggressive behavior. He was transferred to the [place] [facility] on August 09, where he was diagnosed with a urinary tract infection. Cultures grew Enterobacter and E. coli , and he was treated with Macrodantin while remaining in the emergency department awaiting placement, as he was considered medically stable at that time. On August 15, the patient developed fever, tachycardia, delirium, and worsening altered mental status, requiring the use of soft wrist restraints. Urinalysis was negative. He was admitted for sepsis, likely due to a COVID-19 infection diagnosed on August 09, as well as a right foot surgical site infection related to the June amputation. His hospital course was complicated by persistent delirium on the background of Alzheimer?s dementia. Despite appropriate antibiotic therapy and supportive care, his condition failed to improve. 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 He has since been managed with morphine, Ativan, and Haldol as needed for comfort. Plan: Continue comfort care on morphine scheduled 2 mg q.4 hours, and on subli ngual Ativan,im Haldol as needed for symptom management. Spoke with [facility] hospice nurse she feels is imminent. Quality Stroke Does the patient have a stroke diagnosis?: No VTE Prior VTE?: No VTE Risk Level:: Medical - moderate - high VTE Device Contraindication: Treatment Not Indicated VTE Drug Contraindication: Treatment Not Indicated
[2024-08-27] MEDS: traZODone HCL 50 MG TABLET PO (20:37)
[2024-08-27 22:36] VITALS: RESP 18
[2024-08-28 02:41] VITALS: RESP 16
[2024-08-28] MEDS: Morphine Sulfate 2 MG/ML CARTRIDGE IVPUSH (02:41)
--- NOTE | 2024-08-28 10:42 | MHC.CLN ---
NUTRITION PATIENT IS COMFORT MEASURES ONLY. ON [facility]. DIET=PUREE WITH ENSURE CLEAR TID. RD AVAILABLE NEEDED.
--- NOTE | 2024-08-28 13:28 | HO.PM.IMPN ---
Subjective Subjective Date of Service: 08/28/24 Interval History: No acute issues overnight Review of Systems Unable to obtain Physical Exam Vital Signs: Vital Signs: Last Vital Signs Temp 97 F 08/26/24 18:50 Pulse 63 08/26/24 18:50 Resp 16 08/28/24 02:41 BP 137/61 08/26/24 18:50 Pulse Ox 94 08/26/24 18:50 O2 Del Method Room Air 08/26/24 18:50 Const: Other: Awake alert no acute distress Resp: Other: Clear to auscultation bilaterally no rales rhonchi or wheezes Cardio: Other: No S4; positive S1-S2; no S3 murmurs rubs or gallops Extrem: Other: No edema bilaterally Objective Data Active Medications Haloperidol Lactate (Haloperidol Lactate Oral Conc 10 Mg/5 Ml Oral.Conc) 0.5 mg PO Q4H PRN PRN Reason: Anxiety/Restlessness/Delirium Last Admin: 08/24/24 00:24 Dose: 0.5 mg Documented By: PREETI Haloperidol Lactate (Haloperidol Lactate 5 Mg/Ml Vial) 0.5 mg IM Q4H PRN PRN Reason: Psychosis Last Admin: 08/21/24 01:07 Dose: 0.5 mg Documented By: LARA Comments: pt woke up and attempting to get oob, pulling at foot dressing unable to redirect. Lorazepam (Lorazepam 1 Mg Tablet) 1 mg PO Q4H PRN PRN Reason: Anxiety Stop: 09/26/24 18:24 Morphine Sulfate (Morphine Sulfate 2 Mg/Ml Cartridge) 2 mg IVPUSH Q4H PRN; Protocol PRN Reason: Pain, Severe (Pain Scale 7-10) Stop: 09/26/24 18:23 Last Admin: 08/28/24 02:41 Dose: 2 mg Documented By: ROMY Ondansetron HCl (Ondansetron Hcl 4 Mg/2 Ml Vial) 4 mg IVPUSH Q8H PRN PRN Reason: Nausea and Vomiting Last Admin: 08/25/24 21:42 Dose: 4 mg Documented By: MARQUES Trazodone HCl (Trazodone Hcl 25 Mg Halftab) 25 mg PO BID PRN PRN Reason: agitation Last Admin: 08/26/24 01:04 Dose: 25 mg Documented By: MARQUES Trazodone HCl (Trazodone Hcl 50 Mg Tablet) 50 mg PO BEDTIME KENNY Last Admin: 08/27/24 20:37 Dose: 50 mg Documented By: ROMY Assessment and Plan (1) Major neurocognitive disorder due to Alzheimer's disease: Status: Acute Plan 69-year-old male with a past medical history of uncontrolled insulin-dependent diabetes mellitus, hypothyroidism, cognitive impairment/Alzheimer?s dementia, dysphagia, hyperlipidemia, depression, obstructive sleep apnea, Charcot?s joints in both feet, chronic urinary retention with a chronic Parker catheter in place since May 2023, neuropathy, and recurrent urinary tract infections, was admitted for sepsis and delirium. He underwent a right toe amputation in early June 2024 at [facility]. During rehabilitation at [facility], the patient developed increasing agitation and aggressive behavior. He was transferred to the [place] [facility] Department on August 09, where he was diagnosed with a urinary tract infection. Cultures grew Enterobacter and E. coli, and he was treated with Macrodantin while remaining in the emergency department awaiting placement, as he was considered medically stable at that time. On August 15, the patient developed fever, tachycardia, delirium, and worsening altered mental status, requiring the use of soft wrist restraints. Urinalysis was negative. He was admitted for sepsis, likely due to a COVID-19 infection diagnosed on August 09, as well as a right foot surgical site infection related to the June amputation. His hospital course was complicated by persistent delirium on the background of Alzheimer?s dementia. Despite appropriate antibiotic therapy and supportive care, his condition failed to improve. On August 18, after discussions with his and health care proxy, a decision was made to transition to comfort measures only (FOUNTAIN WAITRESS/WAITER). He has since been managed with morphine, Ativan, and Haldol as needed for comfort. Plan: Continue comfort care on morphine scheduled 2 mg q.4 hours, and on sublingual Ativan,im Haldol as needed for symptom management. Spoke with [facility] hosp[facility] nurse she feels is imminent. Quality Stroke Does the patient have a stroke diagnosis?: No VTE Prior VTE?: No VTE Risk Level:: Medical - moderate - high VTE Device Contraindication: Treatment Not Indicated VTE Drug Contraindication: Treatment Not Indicated
--- NOTE | 2024-08-28 13:42 | MHC.CM.PN ---
PT REMAINS ON [facility]. PT'S MADE AWARE OF DOCUMENTS NEEDED TO COMPLETE THE MH APPLICATION (LIFE INSURANCE POLICY VIA EMPLOYER,COPY OF PENSION BENEFIT, 12 MONTHS BANK STATEMENTS,REGISTRATION OF FRANCISCA WILLIAMSON) CM WILL CONTINUE TO FOLLOW
[2024-08-28 15:24] VITALS: BP 147/79; PULSE 73; RESP 14; TEMP 36.8; O2SAT 94
[2024-08-28] MEDS: traZODone HCL 50 MG TABLET PO (20:38)
--- NOTE | 2024-08-29 13:49 | P.PNIM_ITS ---
Subjective Subjective Date of Service: 08/29/24 Interval History: No acute issues overnight Review of Systems Unable to obtain Physical Exam Vital Signs: Vital Signs: Last Vital Signs Temp 98.3 F 08/28/24 15:24 Pulse 73 08/28/24 15:24 Resp 14 08/28/24 15:24 BP 147/79 H 08/28/24 15:24 Pulse Ox 94 08/28/24 15:24 O2 Del Method Room Air 08/28/24 15:24 Const: Other: Awake alert no acute distress Resp: Other: Clear to auscultation bilaterally no rales rhonchi or wheezes Cardio: Other: No S4; positive S1-S2; no S3 murmurs rubs or gallops Extrem: Other: No edema bilaterally Objective Data Active Medications Haloperidol Lactate (Haloperidol Lactate Oral Conc 10 Mg/5 Ml Oral.Conc) 0.5 mg PO Q4H PRN PRN Reason: Anxiety/Restlessness/Delirium Last Admin: 08/24/24 00:24 Dose: 0.5 mg Documented By: PREETI Haloperidol Lactate (Haloperidol Lactate 5 Mg/Ml Vial) 0.5 mg IM Q4H PRN PRN Reason: Psychosis Last Admin: 08/21/24 01:07 Dose: 0.5 mg Documented By: LARA Comments: pt woke up and attempting to get oob, pulling at foot dressing unable to redirect. Lorazepam (Lorazepam 1 Mg Tablet) 1 mg PO Q4H PRN PRN Reason: Anxiety Stop: 09/26/24 18:24 Morphine Sulfate (Morphine Sulfate 2 Mg/Ml Cartridge) 2 mg IVPUSH Q4H PRN; Protocol PRN Reason: Pain, Severe (Pain Scale 7-10) Stop: 09/26/24 18:23 Last Admin: 08/28/24 02:41 Dose: 2 mg Documented By: ROMY Ondansetron HCl (Ondansetron Hcl 4 Mg/2 Ml Vial) 4 mg IVPUSH Q8H PRN PRN Reason: Nausea and Vomiting Last Admin: 08/25/24 21:42 Dose: 4 mg Documented By: MARQUES Trazodone HCl (Trazodone Hcl 25 Mg Halftab) 25 mg PO BID PRN PRN Reason: agitation Last Admin: 08/26/24 01:04 Dose: 25 mg Documented By: MARQUES Trazodone HCl (Trazodone Hcl 50 Mg Tablet) 50 mg PO BEDTIME KENNY Last Admin: 08/28/24 20:38 Dose: 50 mg Documented By: ROMY Assessment and Plan (1) Major neurocognitive disorder due to Alzheimer's disease: Status: Acute Plan 69-year-old male with a past medical history of uncontrolled insulin-dependent diabetes mellitus, hypothyroidism, cognitive impairment/Alzheimer?s dementia, dysphagia, hyperlipidemia, depression, obstructive sleep apnea, Charcot?s joints in both feet, chronic urinary retention with a chronic Parker catheter in place since May 2023, neuropathy, and recurrent urinary tract infections, was admitted for sepsis and delirium. He underwent a right toe amputation in early June 2024 at [facility]. During rehabilitation at [facility], the patient developed increasing agitation and aggressive behavior. He was transferred to the [place] Emergency Department on August 09, where he was diagnosed with a urinary tract infection. Cultures grew Enterobacter and E. coli , and he was treated with Macrodantin while remaining in the emergency department awaiting placement, as he was considered medically stable at that time. On August 15, the patient developed fever, tachycardia, delirium, and worsening altered mental status, requiring the use of soft wrist restraints. Urinalysis was negative. He was admitted for sepsis, likely due to a COVID-19 infection diagnosed on August 09, as well as a right foot surgical site infection related to the June amputation. His hospital course was complicated by persistent delirium on the background of Alzheimer?s dementia. Despite appropriate antibiotic therapy and supportive care, his condition failed to improve. On August 18, after discussions with his and health care proxy, a decision was made to transition to comfort measures only (CRULLER MAKER MACHINE). He has since been managed with morphine, Ativan, and Haldol as needed for comfort. Plan: Continue comfort care on morphine scheduled 2 mg q.4 hours, and on sublingual Ativan,im Haldol as needed for symptom management. Spoke with [facility] hospice nurse she feels is imminent. Quality Stroke Does the patient have a stroke diagnosis?: No VTE Prior VTE?: No VTE Risk Level:: Medical - moderate - high VTE Device Contraindication: Treatment Not Indicated VTE Drug Contraindication: Treatment Not Indicated
[2024-08-29] MEDS: LORazepam 1 MG TABLET PO (13:50)
[2024-08-29] MEDS: Haloperidol Lactate Oral Conc 10 MG/5 ML ORAL.CONC PO (17:01)
[2024-08-29] MEDS: traZODone HCL 50 MG TABLET PO (21:39)
[2024-08-30 03:18] VITALS: BP 147/71; PULSE 61; RESP 16; TEMP 36; O2SAT 95
--- NOTE | 2024-08-30 11:47 | MHC.CM.PN ---
EMR REVIEWED AND PER MD ROUNDS, PT REMAINS ON [facility] WITH C. IS COLLECTING FURTHER DOCUMENTS TO BRING IN FOR [facility] TO COMPLETE THE MH QING. CM WILL CONTINUE TO FOLLOW.
--- NOTE | 2024-08-30 13:00 | HO.PM.IMPN ---
Subjective Subjective Date of Service: 08/30/24 Interval History: No acute issues overnight Review of Systems Unable to obtain Physical Exam Vital Signs: Vital Signs: Last Vital Signs Temp 96.8 F 08/30/24 03:18 Pulse 61 08/30/24 03:18 Resp 16 08/30/24 03:18 BP 147/71 H 08/30/24 03:18 Pulse Ox 95 08/30/24 03:18 O2 Del Method Room Air 08/30/24 03:18 Const: Other: Awake alert no acute distress Resp: Other: Clear to auscultation bilaterally no rales rhonchi or wheezes Cardio: Other: No S4; positive S1-S2; no S3 murmurs rubs or gallops Extrem: Other: No edema bilaterally Objective Data Active Medications Haloperidol Lactate (Haloperidol Lactate Oral Conc 10 Mg/5 Ml Oral.Conc) 0.5 mg PO Q4H PRN PRN Reason: Anxiety/Restlessness/Delirium Last Admin: 08/29/24 17:01 Dose: 0.5 mg Documented By: PREETI Haloperidol Lactate (Haloperidol Lactate 5 Mg/Ml Vial) 0.5 mg IM Q4H PRN PRN Reason: Psychosis Last Admin: 08/21/24 01:07 Dose: 0.5 mg Documented By: LARA Comments: pt woke up and attempting to get oob, pulling at foot dressing unable to redirect. Lorazepam (Lorazepam 1 Mg Tablet) 1 mg PO Q4H PRN PRN Reason: Anxiety Stop: 09/26/24 18:24 Last Admin: 08/29/24 13:50 Dose: 1 mg Documented By: EMILY Morphine Sulfate (Morphine Sulfate 2 Mg/Ml Cartridge) 2 mg IVPUSH Q4H PRN; Protocol PRN Reason: Pain, Severe (Pain Scale 7-10) Stop: 09/26/24 18:23 Last Admin: 08/28/24 02:41 Dose: 2 mg Documented By: ROMY Ondansetron HCl (Ondansetron Hcl 4 Mg/2 Ml Vial) 4 mg IVPUSH Q8H PRN PRN Reason: Nausea and Vomiting Last Admin: 08/25/24 21:42 Dose: 4 mg Documented By: MARQUES Trazodone HCl (Trazodone Hcl 25 Mg Halftab) 25 mg PO BID PRN PRN Reason: agitation Last Admin: 08/26/24 01:04 Dose: 25 mg Documented By: MARQUES Trazodone HCl (Trazodone Hcl 50 Mg Tablet) 50 mg PO BEDTIME KENNY Last Admin: 08/29/24 21:39 Dose: 50 mg Documented By: PREETI Assessment and Plan (1) Major neurocognitive disorder due to Alzheimer's disease: Status: Acute Plan 69-year-old male with a past medical history of uncontrolled insulin-dependent diabetes mellitus, hypothyroidism, cognitive impairment/Alzheimer?s dementia, dysphagia, hyperlipidemia, depression, obstructive sleep apnea, Charcot?s joints in both feet, chronic urinary retention with a chronic Parker catheter in place since May 2023, neuropathy, and recurrent urinary tract infections, was admitted for sepsis and delirium. He underwent a right toe amputation in early June 2024 at [facility]. During rehabilitation at [facility], the patient developed increasing agitation and aggressive behavior. He was transferred to the [place] [facility] on August 09, where he was diagnosed with a urinary tract infection. Cultures grew Enterobacter and E. coli, and he was treated with Macrodantin while remaining in the emergency department awaiting placement, as he was considered medically stable at that time. On August 15, the patient developed fever, tachycardia, delirium, and worsening altered mental status, requiring the use of soft wrist restraints. Urinalysis was negative. He was admitted for sepsis, likely due to a COVID-19 infection diagnosed on August 09, as well as a right foot surgical site infection related to the June amputation. His hospital course was complicated by persistent delirium on the background of Alzheimer?s dementia. Despite appropriate antibiotic therapy and supportive care, his condition failed to improve. On August 18, after discussions with his and health care proxy, a decision was made to transition to comfort measures only (CAR FERRY MASTER). He has since been managed with morphine, Ativan, and Haldol as needed for comfort. Plan: Continue comfort care on morphine scheduled 2 mg q.4 hours, and on sublingual Ativan,im Haldol as needed for symptom management. Spoke with [facility] hospice nurse she feels is imminent. Quality Stroke Does the patient have a stroke diagnosis?: No VTE Prior VTE?: No VTE Risk Level:: Medical - moderate - high VTE Device Contraindication: Treatment Not Indicated VTE Drug Contraindication: Treatment Not Indicated
--- NOTE | 2024-08-30 14:56 | PC.NURSE ---
Patient alert and cooperative throughout shift. Oriented to self only. 1:1 sitter removed at [address]. [address]. Patient occasionally putting legs over side of bed and pulling at tamela. Easily redirected. Ate 25% of breakfast, refused lunch. Parker catheter draining jelena urine, 200ml shift. Patient R foot wound dressing changed, patient tolerated well.
[2024-08-30 15:22] VITALS: BMI 28.9
[2024-08-30] MEDS: 0.9 % Sodium Chloride Flush 3 ML SYRINGE IVFLUSH ×2 (16:38→19:46)
[2024-08-30] MEDS: traZODone HCL 50 MG TABLET PO (19:45)
--- NOTE | 2024-08-30 22:43 | PC.NURSE ---
Patient alert to self only, awake, denies discomfort. Able to drink fluids well. Safety in place, offered meds to help sleep but patient refused it at this time.
[2024-08-30] MEDS: LORazepam 1 MG TABLET PO (23:13)
[2024-08-31] MEDS: 0.9 % Sodium Chloride Flush 3 ML SYRINGE IVFLUSH ×3 (07:43→23:05)
[2024-08-31] MEDS: Haloperidol Lactate Oral Conc 10 MG/5 ML ORAL.CONC PO ×5 (07:44→23:02)
[2024-08-31] MEDS: LORazepam 1 MG TABLET PO ×2 (07:44→11:47)
[2024-08-31] MEDS: Morphine Sulfate 2 MG/ML CARTRIDGE IVPUSH ×2 (07:44→11:49)
[2024-08-31] MEDS: traZODone HCL 25 MG HALFTAB PO (07:44)
[2024-08-31] MEDS: Morphine Sulfate 2 MG/ML CARTRIDGE 4 MG IVPUSH ×2 (14:41→18:32)
--- NOTE | 2024-08-31 14:53 | PC.NURSE ---
Pt removed foot dressing, redressed at this time.
--- NOTE | 2024-08-31 15:07 | MHC.CM.PN ---
CM SPOKE WITH [facility] WHO HAS NOT RECEIVED THE PPW THAT WAS REQUESTED FROM [facility] TO COMPLETE MH QING. THIS CM SPOKE WITH [facility] WHO ASSURES THAT THE PPW IS BEING COLLECTED AND WILL BE BROUGHT IN SOON. PT REMAINS ON [facility]. CM WILL CONTINUE TO FOLLOW.
--- NOTE | 2024-08-31 16:02 | HO.PM.IMPN ---
Subjective Subjective Date of Service: 08/31/24 Interval History: seen and examined this morning for [facility] hospice awake, alert able to converse- wants to go to [facility] Review of Systems Review of Systems: Yes all other systems are reviewed and are negative Constitutional Constitutional: Denies chills and Denies fever(s) Physical Exam Vital Signs: Vital Signs: Last Vital Signs Temp 96.8 F 08/30/24 03:18 Pulse 61 08/30/24 03:18 Resp 16 08/30/24 03:18 BP 147/71 H 08/30/24 03:18 Pulse Ox 95 08/30/24 03:18 O2 Del Method Room Air 08/30/24 03:18 BMI result Body Mass Index 28.9 Const: General: comfortable, no acute distress, alert and awake Nutritional Appearance: average body habitus Resp: Effort & Inspection: normal respiratory effort, able to speak in complete sentences, no respiratory distress and no use of accessory muscles GI: Inspection: No distended Objective Data Active Medications Haloperidol Lactate (Haloperidol Lactate 5 Mg/Ml Vial) 0.5 mg IM Q4H PRN PRN Reason: Psychosis Last Admin: 08/21/24 01:07 Dose: 0.5 mg Documented By: LAAR Comments: pt woke up and attempting to get oob, pulling at foot dressing unable to redirect. Haloperidol Lactate (Haloperidol Lactate Oral Conc 10 Mg/5 Ml Oral.Conc) 0.5 mg PO Q4H KENNY Last Admin: 08/31/24 14:31 Dose: 0.5 mg Documented By: JACKY Lorazepam (Lorazepam 1 Mg Tablet) 1 mg PO Q4H PRN PRN Reason: Anxiety Stop: 09/26/24 18:24 Last Admin: 08/31/24 11:47 Dose: 1 mg Documented By: JACKY Morphine Sulfate (Morphine Sulfate 2 Mg/Ml Cartridge) 4 mg IVPUSH Q4H PRN; Protocol PRN Reason: Pain, Severe (Pain Scale 7-10) Stop: 09/26/24 18:23 Last Admin: 08/31/24 14:41 Dose: 4 mg Documented By: JACKY Ondansetron HCl (Ondansetron Hcl 4 Mg/2 Ml Vial) 4 mg IVPUSH Q8H PRN PRN Reason: Nausea and Vomiting Last Admin: 08/25/24 21:42 Dose: 4 mg Documented By: MARQUES Sodium Chloride (0.9 % Sodium Chloride Flush 3 Ml Syringe) 3 ml IVFLUSH QSHIFT [facility] Last Admin: 08/31/24 11:49 Dose: 3 ml Documented By: JACKY Trazodone HCl (Trazodone Hcl 25 Mg Halftab) 25 mg PO BID PRN PRN Reason: agitation Last Admin: 08/31/24 07:44 Dose: 25 mg Documented By: JACKY Trazodone HCl (Trazodone Hcl 50 Mg Tablet) 50 mg PO BEDTIME [facility] Last Admin: 08/30/24 19:45 Dose: 50 mg Documented By: DARIN Assessment and Plan (1) Major neurocognitive disorder due to Alzheimer's disease: Status: Acute Plan 69-year-old male with a past medical history of uncontrolled insulin-dependent diabetes mellitus, hypothyroidism, cognitive impairment/Alzheimer?s dementia, dysphagia, hyperlipidemia, depression, obstructive sleep apnea, Charcot?s joints in both feet, chronic urinary retention with a chronic Parker catheter in place since May 2023, neuropathy, and recurrent urinary tract infections, was admitted for sepsis and delirium. He underwent a right toe amputation in early June 2024 at [facility]. During rehabilitation at [facility], the patient developed increasing agitation and aggressive behavior. He was transferred to the [place] [facility] on August 09, where he was diagnosed with a urinary tract infection. Cultures grew Enterobacter and E. coli, and he was treated with Macrodantin while remaining in the emergency department awaiting placement, as he was considered medically stable at that time. On August 15, the patient developed fever, tachycardia, delirium, and worsening altered mental status, requiring the use of soft wrist restraints. Urinalysis was negative. He was admitted for sepsis, likely due to a COVID-19 infection diagnosed on August 09, as well as a right foot surgical site infection related to the June amputation. His hospital course was complicated by persistent delirium on the background of Alzheimer?s dementia. Despite appropriate antibiotic therapy and supportive care, his condition failed to improve. On August 18, after discussions with his and health care proxy, a decision was made to transition to comfort measures only (PRICING SUPERVISOR). He has since been managed with morphine, Ativan, and Haldol as needed for comfort. Plan: Continue comfort care medications foot pain -increase prn morphine agitation - schedule po haldol rather then prn; continue prn IM haldol continue sublingual Ativan Quality Stroke Does the patient have a stroke diagnosis?: No VTE Prior VTE?: No VTE Risk Level:: Medical - moderate - high VTE Device Contraindication: Treatment Not Indicated VTE Drug Contraindication: Treatment Not Indicated
--- NOTE | 2024-08-31 18:36 | PC.NURSE ---
Pt c/o foot pain, agitation and restlessness through out the day. Medicated per emar. Hospice in, meds adjusted. KILN FIRER HELPER/Hospice, continue to monitor for care and comfort.
[2024-08-31] MEDS: traZODone HCL 50 MG TABLET PO (20:28)
[2024-09-01] MEDS: Haloperidol Lactate Oral Conc 10 MG/5 ML ORAL.CONC PO ×5 (03:09→19:33)
[2024-09-01] MEDS: 0.9 % Sodium Chloride Flush 3 ML SYRINGE IVFLUSH ×3 (07:04→19:35)
[2024-09-01] MEDS: LORazepam 1 MG TABLET PO (12:03)
--- NOTE | 2024-09-01 12:04 | MHC.CM.PN ---
EMR REVIEWED. PT REMAINS ON [facility] WITH [facility]. SW FROM [facility] IN TO SEE PT . SW MADE AWARE THAT HAS STILL NOT PROVIDED F.S. WITH DOCUMENTS TO COMPLETE MH QING. CM CONTINUES TO FOLLOW
[2024-09-01 15:40] VITALS: BP 122/67; PULSE 69; RESP 20; TEMP 36.2; O2SAT 94
--- NOTE | 2024-09-01 16:17 | P.PNIM_ITS ---
Subjective Subjective Date of Service: 09/01/24 Interval History: seen and examined this morning follow up for CURATOR HERBARIUM no overnight events awake, alert. denies pain Review of Systems Review of Systems: Yes all other systems are reviewed and are negative Physical Exam Vital Signs: Vital Signs: Last Vital Signs Temp 97.2 F 09/01/24 15:40 Pulse 69 09/01/24 15:40 Resp 20 09/01/24 15:40 BP 122/67 09/01/24 15:40 Pulse Ox 94 09/01/24 15:40 O2 Del Method Room Air 09/01/24 15:40 BMI result Body Mass Index 28.9 Const: General: comfortable, no acute distress, alert and awake Nutritional Appearance: average body habitus Resp: Effort & Inspection: normal respiratory effort, able to speak in complete sentences, no respiratory distress and no use of accessory muscles GI: Inspection: No distended Extrem: Other: right foot wrapped in clean, dry dressing Objective Data Active Medications Haloperidol Lactate (Haloperidol Lactate 5 Mg/Ml Vial) 0.5 mg IM Q4H PRN PRN Reason: Psychosis Last Admin: 08/21/24 01:07 Dose: 0.5 mg Documented By: LARA Comments: pt woke up and attempting to get oob, pulling at foot dressing unable to redirect. Haloperidol Lactate (Haloperidol Lactate Oral Conc 10 Mg/5 Ml Oral.Conc) 0.5 mg PO Q4H [facility] Last Admin: 09/01/24 10:46 Dose: 0.5 mg Documented By: HUSEYIN Lorazepam (Lorazepam 1 Mg Tablet) 1 mg PO Q4H PRN PRN Reason: Anxiety Stop: 09/26/24 18:24 Last Admin: 09/01/24 12:03 Dose: 1 mg Documented By: HUSEYIN Morphine Sulfate (Morphine Sulfate 2 Mg/Ml Cartridge) 4 mg IVPUSH Q4H PRN; Protocol PRN Reason: Pain, Severe (Pain Scale 7-10) Stop: 09/26/24 18:23 Last Admin: 08/31/24 18:32 Dose: 4 mg Documented By: JACKY Ondansetron HCl (Ondansetron Hcl 4 Mg/2 Ml Vial) 4 mg IVPUSH Q8H PRN PRN Reason: Nausea and Vomiting Last Admin: 08/25/24 21:42 Dose: 4 mg Documented By: MARQUES Sodium Chloride (0.9 % Sodium Chloride Flush 3 Ml Syringe) 3 ml IVFLUSH QSHIFT [facility] Last Admin: 09/01/24 07:04 Dose: 3 ml Documented By: HUSEYIN Trazodone HCl (Trazodone Hcl 25 Mg Halftab) 25 mg PO BID PRN PRN Reason: agitation Last Admin: 08/31/24 07:44 Dose: 25 mg Documented By: JACKY Trazodone HCl (Trazodone Hcl 50 Mg Tablet) 50 mg PO BEDTIME [facility] Last Admin: 08/31/24 20:28 Dose: 50 mg Documented By: CESAR Assessment and Plan (1) Major neurocognitive disorder due to Alzheimer's disease: Status: Acute Plan 69-year-old male with a past medical history of uncontrolled insulin-dependent diabetes mellitus, hypothyroidism, cognitive impairment/Alzheimer?s dementia, dysphagia, hyperlipidemia, depression, obstructive sleep apnea, Charcot?s joints in both feet, chronic urinary retention with a chronic Parker catheter in place since May 2023, neuropathy, and recurrent urinary tract infections, was admitted for sepsis and delirium. He underwent a right toe amputation in early June 2024 at [facility]. During rehabilitation at [facility], the patient developed increasing agitation and aggressive behavior. He was transferred to the [place] [facility] on August 09, where he was diagnosed with a urinary tract infection. Cultures grew Enterobacter and E. coli , and he was treated with Macrodantin while remaining in the emergency department awaiting placement, as he was considered medically stable at that time. On August 15, the patient developed fever, tachycardia, delirium, and worsening altered mental status, requiring the use of soft wrist restraints. Urinalysis was negative. He was admitted for sepsis, likely due to a COVID-19 infection diagnosed on August 09, as well as a right foot surgical site infection related to the June amputation. His hospital course was complicated by persistent delirium on the background of Alzheimer?s dementia. Despite appropriate antibiotic therapy and supportive care, his condition failed to improve. On August 18, after discussions with his and health care proxy, a decision was made to transition to comfort measures only (CURATOR HERBARIUM). He has since been managed with morphine, Ativan, and Haldol as needed for comfort. Plan: Continue comfort care medications foot pain -increase prn morphine agitation - schedule po haldol rather then prn; continue prn IM haldol continue sublingual Ativan Quality Stroke Does the patient have a stroke diagnosis?: No VTE Prior VTE?: No VTE Risk Level:: Medical - moderate - high VTE Device Contraindication: Treatment Not Indicated VTE Drug Contraindication: Treatment Not Indicated
[2024-09-01] MEDS: traZODone HCL 50 MG TABLET PO (19:33)
[2024-09-01 19:37] VITALS: BP 134/64; PULSE 73; RESP 17; TEMP 36.1; O2SAT 93
[2024-09-02] MEDS: Haloperidol Lactate Oral Conc 10 MG/5 ML ORAL.CONC PO ×7 (00:02→22:28)
[2024-09-02] MEDS: LORazepam 1 MG TABLET PO ×5 (02:07→22:28)
[2024-09-02] MEDS: Morphine Sulfate 2 MG/ML CARTRIDGE 4 MG IVPUSH ×3 (04:21→19:14)
[2024-09-02] MEDS: 0.9 % Sodium Chloride Flush 3 ML SYRINGE IVFLUSH ×3 (08:47→19:32)
[2024-09-02 12:49] VITALS: RESP 12
--- NOTE | 2024-09-02 15:20 | P.PNIM_ITS ---
Subjective Subjective Date of Service: 09/02/24 Interval History: seen and examined this morning, patient sleeping. appears comfortable Physical Exam Vital Signs: Vital Signs: Last Vital Signs Temp 97 F 09/01/24 19:37 Pulse 73 09/01/24 19:37 Resp 12 09/02/24 12:49 BP 134/64 09/01/24 19:37 Pulse Ox 93 09/01/24 19:37 O2 Del Method Room Air 09/01/24 19:37 BMI result Body Mass Index 28.9 Const: Other: sleeping, appears comfortable; breathing non-labored Objective Data Active Medications Haloperidol Lactate (Haloperidol Lactate 5 Mg/Ml Vial) 0.5 mg IM Q4H PRN PRN Reason: Psychosis Last Admin: 08/21/24 01:07 Dose: 0.5 mg Documented By: LARA Comments: pt woke up and attempting to get oob, pulling at foot dressing unable to redirect. Haloperidol Lactate (Haloperidol Lactate Oral Conc 10 Mg/5 Ml Oral.Conc) 0.5 mg PO Q4H [facility] Last Admin: 09/02/24 11:17 Dose: 0.5 mg Documented By: GURPREET Lorazepam (Lorazepam 1 Mg Tablet) 1 mg PO Q4H PRN PRN Reason: Anxiety Stop: 09/26/24 18:24 Last Admin: 09/02/24 09:30 Dose: 1 mg Documented By: GURPREET Comments: Randolph Fam give dose early. Morphine Sulfate (Morphine Sulfate 2 Mg/Ml Cartridge) 4 mg IVPUSH Q4H PRN; Protocol PRN Reason: Pain, Severe (Pain Scale 7-10) Stop: 09/26/24 18:23 Last Admin: 09/02/24 09:56 Dose: 4 mg Documented By: GURPREET Ondansetron HCl (Ondansetron Hcl 4 Mg/2 Ml Vial) 4 mg IVPUSH Q8H PRN PRN Reason: Nausea and Vomiting Last Admin: 08/25/24 21:42 Dose: 4 mg Documented By: MARQUES Sodium Chloride (0.9 % Sodium Chloride Flush 3 Ml Syringe) 3 ml IVFLUSH [facility] Last Admin: 09/02/24 08:47 Dose: 3 ml Documented By: GURPREET Trazodone HCl (Trazodone Hcl 25 Mg Halftab) 25 mg PO BID PRN PRN Reason: agitation Last Admin: 08/31/24 07:44 Dose: 25 mg Documented By: JACKY Trazodone HCl (Trazodone Hcl 50 Mg Tablet) 50 mg PO BEDTIME [facility] Last Admin: 09/01/24 19:33 Dose: 50 mg Documented By: LUIS Assessment and Plan (1) Major neurocognitive disorder due to Alzheimer's disease: Status: Acute Plan 69-year-old male with a past medical history of uncontrolled insulin-dependent diabetes mellitus, hypothyroidism, cognitive impairment/Alzheimer?s dementia, dysphagia, hyperlipidemia, depression, obstructive sleep apnea, Charcot?s joints in both feet, chronic urinary retention with a chronic Parker catheter in place since May 2023, neuropathy, and recurrent urinary tract infections, was admitted for sepsis and delirium. He underwent a right toe amputation in early June 2024 at [facility]. During rehabilitation at [facility], the patient developed increasing agitation and aggressive behavior. He was transferred to the [place] [facility] on August 09, where he was diagnosed with a urinary tract infection. Cultures grew Enterobacter and E. coli , and he was treated with Macrodantin while remaining in the emergency department awaiting placement, as he was considered medically stable at that time. On August 15, the patient developed fever, tachycardia, delirium, and worsening altered mental status, requiring the use of soft wrist restraints. Urinalysis was negative. He was admitted for sepsis, likely due to a COVID-19 infection diagnosed on August 09, as well as a right foot surgical site infection related to the June amputation. His hospital course was complicated by persistent delirium on the background of Alzheimer?s dementia. Despite appropriate antibiotic therapy and supportive care, his condition failed to improve. 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 He has since been managed with morphine, Ativan, and Haldol as needed for comfort. Plan: Continue comfort care medications. hospice nurse following foot pain -increase prn morphine restlessness/agitation - schedule po haldol rather then prn; continue prn IM haldol continue sublingual Ativan Quality Stroke Does the patient have a stroke diagnosis?: No VTE Prior VTE?: No VTE Risk Level:: Medical - moderate - high VTE Device Contraindication: Treatment Not Indicated VTE Drug Contraindication: Treatment Not Indicated
--- NOTE | 2024-09-02 15:22 | PC.NURSE ---
MCKAYLA Fam made aware via tiger text at 0920 pt anxious and agitated, pulling on FC. Attempted to redirect multiple times, but pt is unable to comprehend. PRN Ativan given early for per PA at 09:30. Pt c/o back pain at 09:56, PRN Morphine given with good effect. All safety measures in place, pt currently resting in bed with eyes closed, rise and fall of chest noted, RR 12. All safety measures in place.
[2024-09-02] MEDS: traZODone HCL 50 MG TABLET PO (19:14)
[2024-09-03] MEDS: Morphine Sulfate 2 MG/ML CARTRIDGE 4 MG IVPUSH ×3 (01:41→21:14)
[2024-09-03] MEDS: Haloperidol Lactate Oral Conc 10 MG/5 ML ORAL.CONC PO ×5 (01:44→23:32)
[2024-09-03] MEDS: LORazepam 1 MG TABLET PO ×4 (07:02→23:32)
[2024-09-03] MEDS: traZODone HCL 25 MG HALFTAB PO (09:29)
[2024-09-03] MEDS: 0.9 % Sodium Chloride Flush 3 ML SYRINGE IVFLUSH ×3 (10:06→19:28)
--- NOTE | 2024-09-03 11:06 | P.PNIM_ITS ---
Subjective Subjective Date of Service: 09/03/24 Interval History: seen and examimed this morning sleeping comfortably, no distress, breathing unlabored Physical Exam Vital Signs: Vital Signs: Last Vital Signs Temp 97 F 09/01/24 19:37 Pulse 73 09/01/24 19:37 Resp 12 09/02/24 12:49 BP 134/64 09/01/24 19:37 Pulse Ox 93 09/01/24 19:37 O2 Del Method Room Air 09/01/24 19:37 BMI result Body Mass Index 28.9 Const: Other: breathing nonlabored General: comfortable and no acute distress Objective Data Active Medications Haloperidol Lactate (Haloperidol Lactate 5 Mg/Ml Vial) 0.5 mg IM Q4H PRN PRN Reason: Psychosis Last Admin: 08/21/24 01:07 Dose: 0.5 mg Documented By: LARA Comments: pt woke up and attempting to get oob, pulling at foot dressing unable to redirect. Haloperidol Lactate (Haloperidol Lactate Oral Conc 10 Mg/5 Ml Oral.Conc) 0.5 mg PO Q4H [facility] Last Admin: 09/03/24 10:04 Dose: 0.5 mg Documented By: GURPREET Comments: 07:30 dose not available, called pharmacy multiple times to restock. 11:30 dose given early Lorazepam (Lorazepam 1 Mg Tablet) 1 mg PO Q4H PRN PRN Reason: Anxiety Stop: 09/26/24 18:24 Last Admin: 09/03/24 07:02 Dose: 1 mg Documented By: GURPREET Morphine Sulfate (Morphine Sulfate 2 Mg/Ml Cartridge) 4 mg IVPUSH Q4H PRN; Protocol PRN Reason: Pain, Severe (Pain Scale 7-10) Stop: 09/26/24 18:23 Last Admin: 09/03/24 01:41 Dose: 4 mg Documented By: LUIS Comments: pt denies pain, but pt noted with pain on facial expression, pt confused, agitated, anxious, restless and pulling at tube. prn morphine give for comfort and pain Ondansetron HCl (Ondansetron Hcl 4 Mg/2 Ml Vial) 4 mg IVPUSH Q8H PRN PRN Reason: Nausea and Vomiting Last Admin: 08/25/24 21:42 Dose: 4 mg Documented By: MARQUES Sodium Chloride (0.9 % Sodium Chloride Flush 3 Ml Syringe) 3 ml IVFLUSH Q[facility] Last Admin: 09/03/24 10:06 Dose: 3 ml Documented By: GURPREET Trazodone HCl (Trazodone Hcl 25 Mg Halftab) 25 mg PO BID PRN PRN Reason: agitation Last Admin: 09/03/24 09:29 Dose: 25 mg Documented By: KELSEYUSIMarilou Trazodone HCl (Trazodone Hcl 50 Mg Tablet) 50 mg PO BEDTIME [facility] Last Admin: 09/02/24 19:14 Dose: 50 mg Documented By: LUIS Assessment and Plan (1) Major neurocognitive disorder due to Alzheimer's disease: Status: Acute Plan 69-year-old male with a past medical history of uncontrolled insulin-dependent diabetes mellitus, hypothyroidism, cognitive impairment/Alzheimer?s dementia, dysphagia, hyperlipidemia, depression, obstructive sleep apnea, Charcot?s joints in both feet, chronic urinary retention with a chronic Parker catheter in place since May 2023, neuropathy, and recurrent urinary tract infections, was admitted for sepsis and delirium. He underwent a right toe amputation in early 2024 at [facility]. During rehabilitation at [facility], the patient developed increasing agitation and aggressive behavior. He was transferred to the [place] [facility] Department on August 09, where he was diagnosed with a urinary tract infection. Cultures grew Enterobacter and E. coli , and he was treated with Macrodantin while remaining in the emergency department awaiting placement, as he was considered medically stable at that time. On August 15, the patient developed fever, tachycardia, delirium, and worsening altered mental status, requiring the use of soft wrist restraints. Urinalysis was negative. He was admitted for sepsis, likely due to a COVID-19 infection diagnosed on August 09, as well as a right foot surgical site infection related to the June amputation. His hospital course was complicated by persistent delirium on the background of Alzheimer?s dementia. Despite appropriate antibiotic therapy and supportive care, his condition failed to improve. 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 He has since been managed with morphine, Ativan, and Haldol as needed for comfort. Plan: Continue comfort care medications. hospice nurse following foot pain -increase prn morphine restlessness/agitation - schedule po haldol rather then prn; continue prn IM haldol continue sublingual Ativan Quality Stroke Does the patient have a stroke diagnosis?: No VTE Prior VTE?: No VTE Risk Level:: Medical - moderate - high VTE Device Contraindication: Treatment Not Indicated VTE Drug Contraindication: Treatment Not Indicated
--- NOTE | 2024-09-03 12:43 | PC.NURSE ---
Throughout morning pt having periods of confusion, requiring redirection, attempting to pull at FC and get out of bed. PRN medication for anxiety/agitation administered as needed. At 12:45 pt having period of compleat lucidness, A&Ox4 asking for regular diet, as pt is currently on pureed, MCKAYLA Fam notified. No new orders at this time.
--- NOTE | 2024-09-03 16:31 | PC.NURSE ---
Pt c/o back pain, PRN morphine given, pending effectiveness.
[2024-09-03] MEDS: traZODone HCL 50 MG TABLET PO (19:28)
--- NOTE | 2024-09-04 00:19 | PC.NURSE ---
per previous rn, pt noted with leakage around dow, was notified with no to replacing dow cath. took over care at 1900 with pr noted with increased agitation and restlessness. around dow noted with leakage. dow irrigated with immediate output of over 300 dark yellow urine with sediments, will cont to monitor
[2024-09-04] MEDS: Morphine Sulfate 2 MG/ML CARTRIDGE 4 MG IVPUSH ×2 (04:27→12:13)
--- NOTE | 2024-09-04 04:32 | PC.NURSE ---
pt noted with increased agitation, confusion, anxious and restless. pt noted trying to jump out of bed numerous times, pt pulling off clothes and trying to pull out dow. ? d/t pain? prn po ativan attempted with pt spitting out meds, prn morphine given with staff holding pt arm. pt now comfortably asleep in bed, will cont to monitor
[2024-09-04 06:00] VITALS: BMI 28.9
[2024-09-04] MEDS: Haloperidol Lactate Oral Conc 10 MG/5 ML ORAL.CONC PO ×3 (07:56→23:46)
[2024-09-04] MEDS: 0.9 % Sodium Chloride Flush 3 ML SYRINGE IVFLUSH ×3 (07:59→20:07)
--- NOTE | 2024-09-04 09:22 | P.PNIM_ITS ---
Subjective Subjective Date of Service: 09/04/24 Interval History: seen and examimed this morning sleeping comfortably, no distress, breathing unlabored Physical Exam Vital Signs: Vital Signs: Last Vital Signs Temp 97 F 09/01/24 19:37 Pulse 73 09/01/24 19:37 Resp 12 09/02/24 12:49 BP 134/64 09/01/24 19:37 Pulse Ox 93 09/01/24 19:37 O2 Del Method Room Air 09/01/24 19:37 BMI result Body Mass Index 28.9 Appearing in no acute distress lung sounds are clear to auscultation heart regular rate rhythm, clear S1, S2 positive bowel sounds, abdomen is soft, nontender neuro patient is alert Objective Data Active Medications Haloperidol Lactate (Haloperidol Lactate 5 Mg/Ml Vial) 0.5 mg IM Q4H PRN PRN Reason: Psychosis Last Admin: 08/21/24 01:07 Dose: 0.5 mg Documented By: LARA Comments: pt woke up and attempting to get oob, pulling at foot dressing unable to redirect. Haloperidol Lactate (Haloperidol Lactate Oral Conc 10 Mg/5 Ml Oral.Conc) 0.5 mg PO Q4H [facility] Last Admin: 09/04/24 07:56 Dose: 0.5 mg Documented By: DENIS Lorazepam (Lorazepam 1 Mg Tablet) 1 mg PO Q4H PRN PRN Reason: Anxiety Stop: 09/26/24 18:24 Last Admin: 09/03/24 23:32 Dose: 1 mg Morphine Sulfate (Morphine Sulfate 2 Mg/Ml Cartridge) 4 mg IVPUSH Q4H PRN; Protocol PRN Reason: Pain, Severe (Pain Scale 7-10) Stop: 09/26/24 18:23 Last Admin: 09/04/24 04:27 Dose: 4 mg Documented By: LUIS Comments: lens cleaner, agitated, confused, anxious and restless ? d/t pain? prn po ativan attempted with pt spitting out meds, prn morphine given Ondansetron HCl (Ondansetron Hcl 4 Mg/2 Ml Vial) 4 mg IVPUSH Q8H PRN PRN Reason: Nausea and Vomiting Last Admin: 08/25/24 21:42 Dose: 4 mg Documented By: MARQUES Sodium Chloride (0.9 % Sodium Chloride Flush 3 Ml Syringe) 3 ml IVFLUSH QSHIFT [facility] Last Admin: 09/04/24 07:59 Dose: 3 ml Documented By: DENIS Trazodone HCl (Trazodone Hcl 25 Mg Halftab) 25 mg PO BID PRN PRN Reason: agitation Last Admin: 09/03/24 09:29 Dose: 25 mg Documented By: GURPREET Trazodone HCl (Trazodone Hcl 50 Mg Tablet) 50 mg PO BEDTIME [facility] Last Admin: 09/03/24 19:28 Dose: 50 mg Documented By: LUIS Assessment and Plan (1) Major neurocognitive disorder due to Alzheimer's disease: Status: Acute Plan 69-year-old male with a past medical history of uncontrolled insulin-dependent diabetes mellitus, hypothyroidism, cognitive impairment/Alzheimer?s dementia, dysphagia, hyperlipidemia, depression, obstructive sleep apnea, Charcot?s joints in both feet, chronic urinary retention with a chronic Parker catheter in place since May 2023, neuropathy, and recurrent urinary tract infections, was admitted for sepsis and delirium. He underwent a right toe amputation in early June 2024 at [facility]. During rehabilitation at [facility], the patient developed increasing agitation and aggressive behavior. He was transferred to the [place] [facility] on August 09, where he was diagnosed with a urinary tract infection. Cultures grew Enterobacter and E. coli , and he was treated with Macrodantin while remaining in the emergency department awaiting placement, as he was considered medically stable at that time. On August 15, the patient developed fever, tachycardia, delirium, and worsening altered mental status, requiring the use of soft wrist restraints. Urinalysis was negative. He was admitted for sepsis, likely due to a COVID-19 infection di agnosed on August 09, as well as a right foot surgical site infection related to the June amputation. His hospital course was complicated by persistent delirium on the background of Alzheimer?s dementia. Despite appropriate antibiotic therapy and supportive care, his condition failed to improve. 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 He has since been managed with morphine, Ativan, and Haldol as needed for comfort. Plan: Continue comfort care medications. hospice nurse following foot pain -increase prn morphine restlessness/agitation - schedule po haldol rather then prn; continue prn IM haldol continue sublingual Ativan Quality Stroke Does the patient have a stroke diagnosis?: No VTE Prior VTE?: No VTE Risk Level:: Medical - moderate - high VTE Device Contraindication: Treatment Not Indicated VTE Drug Contraindication: Treatment Not Indicated
--- NOTE | 2024-09-04 13:05 | MHC.CM.PN ---
CM met with and [facility] SW at bedside. admits she has not attempted to get bank statements yet. CM stressed the urgency of obtaining these documents. is aware hospital stay will not be covered once patient is not GIP appropriate. She will attempt to get to [facility] tomorrow, and call [facility] for additional requested documentation.
[2024-09-04] MEDS: traZODone HCL 50 MG TABLET PO (20:04)
[2024-09-04] MEDS: Gabapentin 300 MG CAPSULE PO (20:04)
[2024-09-05] MEDS: Haloperidol Lactate Oral Conc 10 MG/5 ML ORAL.CONC PO ×3 (08:13→23:43)
[2024-09-05] MEDS: Gabapentin 300 MG CAPSULE PO ×2 (08:14→20:18)
[2024-09-05] MEDS: 0.9 % Sodium Chloride Flush 3 ML SYRINGE IVFLUSH ×3 (08:15→20:18)
--- NOTE | 2024-09-05 10:45 | HO.PM.IMPN ---
Subjective Subjective Date of Service: 09/05/24 Interval History: seen and examimed this morning sitting up in bed Intermittent confusion Physical Exam Vital Signs: Vital Signs: Last Vital Signs Temp 97 F 09/01/24 19:37 Pulse 73 09/01/24 19:37 Resp 12 09/02/24 12:49 BP 134/64 09/01/24 19:37 Pulse Ox 93 09/01/24 19:37 O2 Del Method Room Air 09/01/24 19:37 BMI result Body Mass Index 28.9 Appearing in no acute distress lung sounds are clear to auscultation heart regular rate rhythm, clear S1, S2 positive bowel sounds, abdomen is soft, nontender neuro patient is alert x3, no focal deficits Objective Data Active Medications Gabapentin (Gabapentin 300 Mg Capsule) 300 mg PO BID [facility] Last Admin: 09/05/24 08:14 Dose: 300 mg Documented By: ESTUARDO Haloperidol Lactate (Haloperidol Lactate 5 Mg/Ml Vial) 0.5 mg IM Q4H PRN PRN Reason: Psychosis Last Admin: 08/21/24 01:07 Dose: 0.5 mg Documented By: LARA Comments: pt woke up and attempting to get oob, pulling at foot dressing unable to redirect. Haloperidol Lactate (Haloperidol Lactate Oral Conc 10 Mg/5 Ml Oral.Conc) 0.5 mg PO Q8H [facility] Last Admin: 09/05/24 08:13 Dose: 0.5 mg Documented By: ESTUARDO Lorazepam (Lorazepam 1 Mg Tablet) 1 mg PO Q4H PRN PRN Reason: Anxiety Stop: 09/26/24 18:24 Last Admin: 09/03/24 23:32 Dose: 1 mg Morphine Sulfate (Morphine Sulfate 2 Mg/Ml Cartridge) 4 mg IVPUSH Q4H PRN; Protocol PRN Reason: Pain, Severe (Pain Scale 7-10) Stop: 09/26/24 18:23 Last Admin: 09/04/24 12:13 Dose: 4 mg Documented By: DENIS Ondansetron HCl (Ondansetron Hcl 4 Mg/2 Ml Vial) 4 mg IVPUSH Q8H PRN PRN Reason: Nausea and Vomiting Last Admin: 08/25/24 21:42 Dose: 4 mg Documented By: MARQUES Sodium Chloride (0.9 % Sodium Chloride Flush 3 Ml Syringe) 3 ml IVFLUSH QSHIFT [facility] Last Admin: 09/05/24 08:15 Dose: 3 ml Documented By: ESTUARDO Trazodone HCl (Trazodone Hcl 25 Mg Halftab) 25 mg PO BID PRN PRN Reason: agitation Last Admin: 09/03/24 09:29 Dose: 25 mg Documented By: GURPREET Trazodone HCl (Trazodone Hcl 50 Mg Tablet) 50 mg PO BEDTIME [facility] Last Admin: 09/04/24 20:04 Dose: 50 mg Documented By: JAREN Assessment and Plan (1) Major neurocognitive disorder due to Alzheimer's disease: Status: Acute Plan 69-year-old male with a past medical history of uncontrolled insulin-dependent diabetes mellitus, hypothyroidism, cognitive impairment/Alzheimer?s dementia, dysphagia, hyperlipidemia, depression, obstructive sleep apnea, Charcot?s joints in both feet, chronic urinary retention with a chronic Parker catheter in place since May 2023, neuropathy, and recurrent urinary tract infections, was admitted for sepsis and delirium. He underwent a right toe amputation in early June 2024 at [facility]. During rehabilitation at [facility], the patient developed increasing agitation and aggressive behavior. He was transferred to the [place] [facility] on August 09, where he was diagnosed with a urinary tract infection. Cultures grew Enterobacter and E. coli, and he was treated with Macrodantin while remaining in the emergency department awaiting placement, as he was considered medically stable at that time. August 15, the patient developed fever, tachycardia, delirium, and worsening altered mental status, requiring the use of soft wrist restraints. Urinalysis was negative. He was admitted for sepsis, likely due to a COVID-19 infection diagnosed on August 09, as well as a right foot surgical site infection related to the June amputation. His hospital course was complicated by persistent delirium on the background of Alzheimer?s dementia. Despite appropriate antibiotic therapy and supportive care, his condition failed to improve. 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 He has since been managed with morphine, Ativan, and Haldol as needed for comfort. Patient has improved and is awake and alert even being able to feed himself. He does have chronic pain therefore gabapentin was restarted and he may continue as needed morphine as well. He and his are in agreement with this and want to continue TIE CARRIER. Patient is not imminently dying. Plan: Continue comfort care medications. hospice nurse following foot pain prn morphine restlessness/agitation - schedule po haldol rather then prn; continue prn IM haldol continue sublingual Ativan Quality Stroke Does the patient have a stroke diagnosis?: No VTE Prior VTE?: No VTE Risk Level:: Medical - moderate - high VTE Device Contraindication: Treatment Not Indicated VTE Drug Contraindication: Treatment Not Indicated
--- NOTE | 2024-09-05 13:32 | MHC.CM.PN ---
LEANNAI rec'd from financial and shared w/ hospice plan administrator.
[2024-09-05] MEDS: Morphine Sulfate 4 MG/ML CARTRIDGE 3 MG IVPUSH (15:14)
--- NOTE | 2024-09-05 16:01 | PC.NURSE ---
Pt alert and oriented to self and place. Hospice in to see pt today. M.D. order to have pt out of bed to chair. Maximum assist of 2 to get pt to pivot to chair. Pt very weak. Pt medicated with MS for back pain after transfer, with good result.
[2024-09-05] MEDS: traZODone HCL 50 MG TABLET PO (20:18)
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
[2024-09-06 07:54] VITALS: BP 119/74; PULSE 83; RESP 16; TEMP 36.1; O2SAT 95
[2024-09-06] MEDS: Gabapentin 300 MG CAPSULE PO ×2 (08:18→20:47)
[2024-09-06] MEDS: Haloperidol Lactate Oral Conc 10 MG/5 ML ORAL.CONC PO ×3 (08:18→23:20)
[2024-09-06] MEDS: 0.9 % Sodium Chloride Flush 3 ML SYRINGE IVFLUSH ×3 (08:22→20:48)
[2024-09-06] MEDS: Morphine Sulfate 4 MG/ML CARTRIDGE 3 MG IVPUSH ×2 (09:36→17:24)
--- NOTE | 2024-09-06 11:20 | MHC.SL.SWA ---
Speech Pathologist Impression: Adequate oropharyngeal coordination when mentation stable Risk of Aspiration Due to: Dysphasia Diet Status: Liquid Consistency and Strategies for Safe Swallow: Liquid Intake Recommendation: Thin Liquid Intake Strategies: Small Sips No Straws Solid Food Consistency: Dietary Recommendations: Regular Additional Modifications to Solid Foods: Recommend UPGRADE to REGULAR DIET and THIN liquids. Patient requires 1:1 assistance feeding Oral Medication Intake: Crushed with Puree Please contact the pharmacy regarding appropriate crushable or liquid drug formulations that are available whenever modified delivery is recommended. Compensatory Strategies and Precautions to be Taken for Safe Swallow: Sitting Upright (90 deg) Small Bites and Sips Alternate Liquids/Solids Rate of Ingestion Change Oral Check Supervision While Eating and Drinking for Safe Swallow: Total Assistance (1:1) Foods to Avoid: Swallowing Recommended Treatments: Compens. Strategy Educat. 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 When MEDICAL TRANSCRIPTION EDITOR arrived pt alert, sitting upright in chair, eating breakfast with assist by FOREST PATHOLOGY TEACHER. Pt requesting 'regular food'. MEDICAL TRANSCRIPTION EDITOR provided brief education, trials of regular solids to upgrade diet. Pt tolerated regular solids/thin liquids with adequate oropharyngeal coordination, no overt s/s of aspiration. Pt benefitted from cues to slow pace but was otherwise independent in alternating consistencies and clearing residuals. Recc regular diet with thins, MEDICAL TRANSCRIPTION EDITOR to follow, MD notified. 08/24/24: Patient is MOVIE THEATER USHER. D/C Speech/Swallow service Frequency/Duration: Date Range for Service Req: Timeline to reassess: Assistant Auditor Clinican/Clinical Fellow: No Supervisory Statement: I have reviewed and agree with the student/clinical fellow's documentation: N/A Speech Language Pathologist: Rachana Merino M.S., [facility]-MEDICAL TRANSCRIPTION EDITOR
--- NOTE | 2024-09-06 14:27 | MHC.CM.PN ---
A PT EVAL WAS ORDERED TODAY. THE RECOMMENDATION IS STR. FACILITIES HAVE RECEIVED THE PT DOCUMENTATION. [facility] STATED THAT THE PATIENT IS NOW RESPITE FOR 5 DAYS..
[2024-09-06 15:03] VITALS: BP 104/62; PULSE 73; RESP 18; TEMP 36.1; O2SAT 98
[2024-09-06 15:52] LABS: Glucose, Whole Blood 352 mg/dL (60-115)
[2024-09-06] MEDS: Insulin Lispro 100 UNIT/ML 3 ML VIAL SUBCUT ×2 (16:32→20:47)
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
[2024-09-06 20:30] LABS: Glucose, Whole Blood 290 mg/dL (60-115)
[2024-09-06] MEDS: Donepezil HCl 5 MG TABLET PO (20:47)
[2024-09-06] MEDS: Amitriptyline HCl 50 MG TABLET PO (20:47)
[2024-09-06] MEDS: NaPROXEN 500 MG TABLET PO (20:47)
[2024-09-06] MEDS: traZODone HCL 50 MG TABLET PO (20:47)
[2024-09-06] MEDS: Heparin Sodium,Porcine 5,000 UNIT/ML VIAL 5000 UNIT SUBCUT (20:48)
--- NOTE | 2024-09-06 23:52 | PC.NURSE ---
Patient is very pleasant, cooperative, answers appropriately. Appears stronger, was able to stand up with a a walker and make few steps. Had a BM on a commode. Takes meds with no problem.
--- NOTE | 2024-09-07 05:56 | PC.NURSE ---
Dressing to right foot changed this morning. Wet to dry as recommended. Foam dressing off coccyx, small red area noted on left buttock. Triad applied, patient repositioned. Air loss pump in use.
[2024-09-07] MEDS: Levothyroxine Sodium 50 MCG TABLET PO (06:04)
[2024-09-07] MEDS: Heparin Sodium,Porcine 5,000 UNIT/ML VIAL 5000 UNIT SUBCUT ×2 (06:04→17:04)
[2024-09-07 07:22] LABS: Glucose, Whole Blood 284 mg/dL (60-115)
[2024-09-07 07:47] VITALS: BP 102/61; PULSE 79; RESP 18; TEMP 36.3; O2SAT 96
[2024-09-07] MEDS: Gabapentin 300 MG CAPSULE PO ×2 (08:11→21:17)
[2024-09-07] MEDS: Atorvastatin Calcium 80 MG TABLET PO (08:12)
[2024-09-07] MEDS: NaPROXEN 500 MG TABLET PO (08:12)
[2024-09-07] MEDS: Thiamine HCL 100 MG TABLET PO (08:12)
[2024-09-07] MEDS: Aspirin Enteric Coated 81 MG TABLET.DR PO (08:12)
[2024-09-07] MEDS: Haloperidol Lactate Oral Conc 10 MG/5 ML ORAL.CONC PO ×3 (08:13→23:21)
[2024-09-07] MEDS: 0.9 % Sodium Chloride Flush 3 ML SYRINGE IVFLUSH ×3 (08:13→21:18)
[2024-09-07] MEDS: Insulin Lispro 100 UNIT/ML 3 ML VIAL SUBCUT ×4 (08:14→21:17)
--- NOTE | 2024-09-07 11:26 | MHC.SL.SWA ---
Speech Pathologist Impression: Risk of Aspiration Due to: Dysphasia Diet Status: Liquid Consistency and Strategies for Safe Swallow: Liquid Intake Recommendation: Thin Liquid Intake Strategies: Small Sips No Straws Solid Food Consistency: Dietary Recommendations: Regular Additional Modifications to Solid Foods: Oral Medication Intake: Crushed with Puree Please contact the pharmacy regarding appropriate crushable or liquid drug formulations that are available whenever modified delivery is recommended. Compensatory Strategies and Precautions to be Taken for Safe Swallow: Sitting Upright (90 deg) Small Bites and Sips Alternate Liquids/Solids Rate of Ingestion Change Oral Check Supervision While Eating and Drinking for Safe Swallow: Total Assistance (1:1) Foods to Avoid: Swallowing Recommended Treatments: Compens. Strategy Educat. Recommendation for Speech: Comment: Patient seen at breakfast this morning. Patient yesterday advanced to regular foods, Thin liquids. Patient was being supervised by HERITAGE CONSULTANT tis morning, was seated upright in bed and feeding self food from tray. Patient mostly scooping food with spoon, but managing well, made steady progress with meal without assistance or any difficulty with swallow noted. Patient noted to refuse offers of liquid, but said he would have some when done. Patient is on least restrictive diet, tolerating well, able to independently feed, but benefits from supervision at meals to assure progress without difficulties (e.g. spilling food). Recommend d/c Speech service at this time, please reconsult if additional concerns arise. Frequency/Duration: Date Range for Service Req: Timeline to reassess: Custom Decorating Consultant Clinican/Clinical Fellow: No Supervisory Statement: I have reviewed and agree with the student/clinical fellow's documentation: N/A Speech Language Pathologist: Rachana Merino M.S., CCC-TIRE FABRICATOR
[2024-09-07 11:47] LABS: Glucose, Whole Blood 220 mg/dL (60-115)
[2024-09-07 15:07] VITALS: BP 102/58; PULSE 74; RESP 16; TEMP 36.1; O2SAT 98
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
[2024-09-07 16:33] LABS: Glucose, Whole Blood 242 mg/dL (60-115)
[2024-09-07 20:10] LABS: Glucose, Whole Blood 248 mg/dL (60-115)
[2024-09-07] MEDS: Donepezil HCl 5 MG TABLET PO (21:17)
[2024-09-07] MEDS: traZODone HCL 50 MG TABLET PO (21:17)
[2024-09-07] MEDS: Amitriptyline HCl 50 MG TABLET PO (21:17)
[2024-09-08] MEDS: oxyCODONE HCl Immed Release 5 MG TABLET PO ×2 (00:28→17:36)
[2024-09-08] MEDS: Heparin Sodium,Porcine 5,000 UNIT/ML VIAL 5000 UNIT SUBCUT ×2 (05:22→17:36)
[2024-09-08] MEDS: Levothyroxine Sodium 50 MCG TABLET PO (05:22)
[2024-09-08] MEDS: Atorvastatin Calcium 80 MG TABLET PO (07:28)
[2024-09-08] MEDS: Gabapentin 300 MG CAPSULE PO ×2 (07:28→20:32)
[2024-09-08] MEDS: Haloperidol Lactate Oral Conc 10 MG/5 ML ORAL.CONC PO ×2 (07:28→15:59)
[2024-09-08] MEDS: Thiamine HCL 100 MG TABLET PO (07:29)
[2024-09-08] MEDS: Aspirin Enteric Coated 81 MG TABLET.DR PO (07:29)
[2024-09-08] MEDS: 0.9 % Sodium Chloride Flush 3 ML SYRINGE IVFLUSH (07:29)
[2024-09-08 07:37] LABS: Glucose, Whole Blood 174 mg/dL (60-115)
[2024-09-08] MEDS: Insulin Lispro 100 UNIT/ML 3 ML VIAL SUBCUT ×4 (07:37→20:48)
[2024-09-08 11:28] LABS: Glucose, Whole Blood 192 mg/dL (60-115)
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
--- NOTE | 2024-09-08 14:43 | PC.NURSE ---
IV outdated ,removed,MCKAYLA antony
--- NOTE | 2024-09-08 14:52 | MHC.CM.PN ---
Addendum entered by Michelle Moore 09/09/24 08:02: PER [facility], HAS OFFICIALLY REVOKED HOSPICE. Original Note: PER CONVERSATION WITH [facility] AND [facility], PATIENT IS PLANNING TO REVOKE HOSPICE BENEFIT. OF THIS NOTE, THIS HAS NOT OCCURRED. [facility] WAS IN TO ASSESS FOR A BED OFFER. THEY ARE FOLLOWING PENDING FINANCIALS. [facility] IS AWARE THAT ONCE CONFIRMATION OF HOSPICE REVOCATION IS RECEIVED, PATIENT WILL CONVERT BACK TO HIS ORIGINAL INSURANCE IT IS REPORTED THAT STATES THAT PATIENT CANNOT COME HOME. CASE MANAGEMENT TO ADDRESS PROGRESS IS MADE.
[2024-09-08 16:06] LABS: Glucose, Whole Blood 266 mg/dL (60-115)
[2024-09-08] MEDS: Amitriptyline HCl 50 MG TABLET PO (20:31)
[2024-09-08] MEDS: traZODone HCL 50 MG TABLET PO (20:31)
[2024-09-08] MEDS: Donepezil HCl 5 MG TABLET PO (20:32)
[2024-09-08 20:49] LABS: Glucose, Whole Blood 177 mg/dL (60-115)
[2024-09-09] MEDS: Levothyroxine Sodium 50 MCG TABLET PO (05:42)
[2024-09-09] MEDS: Heparin Sodium,Porcine 5,000 UNIT/ML VIAL 5000 UNIT SUBCUT ×2 (05:42→17:55)
--- NOTE | 2024-09-09 06:16 | PC.NURSE ---
pt cooperative takes all his medications . left buttocks very small open area triad applied . pt has air mattress and repositioned q 2 h will monitor
[2024-09-09] MEDS: Aspirin Enteric Coated 81 MG TABLET.DR PO (07:12)
[2024-09-09] MEDS: Thiamine HCL 100 MG TABLET PO (07:12)
[2024-09-09] MEDS: Haloperidol Lactate Oral Conc 10 MG/5 ML ORAL.CONC PO ×2 (07:13→20:44)
[2024-09-09] MEDS: Gabapentin 300 MG CAPSULE PO ×2 (07:13→20:44)
[2024-09-09] MEDS: Atorvastatin Calcium 80 MG TABLET PO (07:13)
[2024-09-09] MEDS: Insulin Lispro 100 UNIT/ML 3 ML VIAL SUBCUT ×4 (07:26→20:48)
[2024-09-09 07:28] LABS: Glucose, Whole Blood 231 mg/dL (60-115)
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
[2024-09-09 11:36] LABS: Glucose, Whole Blood 241 mg/dL (60-115)
[2024-09-09 15:15] VITALS: BP 100/61; PULSE 81; RESP 18; TEMP 36.1; O2SAT 97
[2024-09-09 16:11] LABS: Glucose, Whole Blood 204 mg/dL (60-115)
[2024-09-09 19:14] VITALS: BP 122/67; PULSE 82; RESP 18; TEMP 36.5; O2SAT 98
[2024-09-09 20:15] LABS: Glucose, Whole Blood 154 mg/dL (60-115)
[2024-09-09] MEDS: Donepezil HCl 5 MG TABLET PO (20:44)
[2024-09-09] MEDS: Amitriptyline HCl 50 MG TABLET PO (20:44)
[2024-09-09] MEDS: traZODone HCL 50 MG TABLET PO (20:44)
[2024-09-09] MEDS: oxyCODONE HCl Immed Release 5 MG TABLET PO (20:46)
[2024-09-10 04:00] VITALS: BP 123/60; PULSE 76; RESP 17; TEMP 36.2; O2SAT 93
[2024-09-10] MEDS: Heparin Sodium,Porcine 5,000 UNIT/ML VIAL 5000 UNIT SUBCUT ×2 (05:54→17:29)
[2024-09-10] MEDS: Levothyroxine Sodium 50 MCG TABLET PO (05:54)
[2024-09-10 07:21] VITALS: BP 139/66; PULSE 60; RESP 16; TEMP 36.1; O2SAT 97
[2024-09-10 07:21] LABS: Glucose, Whole Blood 173 mg/dL (60-115)
[2024-09-10] MEDS: Insulin Lispro 100 UNIT/ML 3 ML VIAL SUBCUT ×4 (07:36→20:54)
[2024-09-10] MEDS: Haloperidol Lactate Oral Conc 10 MG/5 ML ORAL.CONC PO ×2 (07:36→20:53)
[2024-09-10] MEDS: Gabapentin 300 MG CAPSULE PO ×2 (07:37→20:53)
[2024-09-10] MEDS: Thiamine HCL 100 MG TABLET PO (07:37)
[2024-09-10] MEDS: Aspirin Enteric Coated 81 MG TABLET.DR PO (07:37)
[2024-09-10] MEDS: Atorvastatin Calcium 80 MG TABLET PO (07:37)
[2024-09-10 08:18] LABS: Hematocrit 34.5 % (42.0-52.0); Hemoglobin 11.1 g/dl (14.0-18.0); Mean Corpuscular HGB Conc 32.2 g/dl (31.0-36.0); Mean Corpuscular Hemoglobin 26.3 pg (27.0-33.0); Mean Corpuscular Volume 81.8 fL (80.0-98.0); Mean Platelet Volume 10.8 fL (9.4-12.4); Platelet Count 300 X10*3/uL (160-400); Red Blood Count 4.22 X10*6/uL (4.60-5.80); Red Cell Distribution Width 14.7 % (11.0-16.0); White Blood Count 6.3 X10*3/uL (4.8-10.8)
[2024-09-10 08:33] LABS: Anion Gap 13 (12-20); Blood Urea Nitrogen 19 mg/dL (9-16); Calcium 9.1 mg/dL (8.4-10.2); Carbon Dioxide 29 mmol/L (22-29); Chloride 101 mmol/L (96-108); Creatinine Clr Calc Pharmacy 116.6; Estimated Glomerular Filt Rate > 60; Glucose Random 182 mg/dL (60-115); Potassium 4.2 mmol/L (3.3-5.1); Sodium 139 mmol/L (135-145)
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
[2024-09-10 11:11] LABS: Glucose, Whole Blood 207 mg/dL (60-115)
--- NOTE | 2024-09-10 11:38 | PC.NURSE ---
Addendum entered by Jenaro Zelaya RN 09/10/24 11:38: Wifi connection down for [facility] Unable to scan meds Original Note: 4 Units of Insulin given at this time in Left Upper Arm.
[2024-09-10 15:19] VITALS: BP 126/71; PULSE 65; RESP 18; TEMP 36.6; O2SAT 98
[2024-09-10 17:00] LABS: Glucose, Whole Blood 312 mg/dL (60-115)
[2024-09-10 19:33] VITALS: BP 116/59; PULSE 68; RESP 20; TEMP 37.3; O2SAT 98
[2024-09-10 19:40] LABS: Glucose, Whole Blood 200 mg/dL (60-115)
[2024-09-10] MEDS: traZODone HCL 50 MG TABLET PO (20:53)
[2024-09-10] MEDS: Donepezil HCl 5 MG TABLET PO (20:53)
[2024-09-10] MEDS: Amitriptyline HCl 50 MG TABLET PO (20:53)
[2024-09-10] MEDS: Insulin Glargine,Hum.rec.anlog 100 UNIT/ML 10 ML VIAL 10 UNIT SUBCUT (20:54)
[2024-09-11 02:34] VITALS: BP 112/77; PULSE 110; RESP 18; TEMP 36.8; O2SAT 97
[2024-09-11] MEDS: Levothyroxine Sodium 50 MCG TABLET PO (06:03)
[2024-09-11] MEDS: Heparin Sodium,Porcine 5,000 UNIT/ML VIAL 5000 UNIT SUBCUT ×2 (06:03→20:36)
[2024-09-11 06:53] LABS: Glucose, Whole Blood 193 mg/dL (60-115)
[2024-09-11 07:02] VITALS: BP 130/82; PULSE 75; RESP 17; TEMP 36.2; O2SAT 98
--- NOTE | 2024-09-11 07:11 | PC.NURSE ---
Received pt OOB in recliner . Pt states he woke around 3 am didn't know where he was and and when he got here. attempted to reorient pt to place time and situation . pt calm and cooperative
[2024-09-11] MEDS: Insulin Lispro 100 UNIT/ML 3 ML VIAL SUBCUT ×3 (07:46→16:56)
[2024-09-11] MEDS: Haloperidol Lactate Oral Conc 10 MG/5 ML ORAL.CONC PO ×2 (07:46→20:36)
[2024-09-11] MEDS: Thiamine HCL 100 MG TABLET PO (07:47)
[2024-09-11] MEDS: Gabapentin 300 MG CAPSULE PO ×2 (07:47→20:37)
[2024-09-11] MEDS: Aspirin Enteric Coated 81 MG TABLET.DR PO (07:47)
[2024-09-11] MEDS: Atorvastatin Calcium 80 MG TABLET PO (07:47)
[2024-09-11] MEDS: Sennosides 8.6 MG TABLET PO (07:49)
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
[2024-09-11 11:05] LABS: Glucose, Whole Blood 221 mg/dL (60-115)
[2024-09-11] MEDS: oxyCODONE HCl Immed Release 5 MG TABLET PO (12:49)
--- NOTE | 2024-09-11 14:03 | MHC.CLN ---
NUTRITION PATIENT DOES NOT WANT ENSURE SUPPLEMENT. ENSURE TID DISCONTINUED.
[2024-09-11 15:17] VITALS: BP 98/59; PULSE 71; RESP 16; TEMP 36; O2SAT 100
[2024-09-11 15:52] VITALS: BP 102/50
[2024-09-11] MEDS: Magnesium Citrate 300 ML SOLUTION PO (16:56)
--- NOTE | 2024-09-11 16:57 | PC.NURSE ---
4 units of Lispro insulin given for a POC of 215. POC hasnt transferred over to [facility]
[2024-09-11 16:59] LABS: Glucose, Whole Blood 215 mg/dL (60-115)
[2024-09-11 19:06] VITALS: BP 105/69; PULSE 66; RESP 15; TEMP 35.9; O2SAT 98
[2024-09-11] MEDS: Insulin Glargine,Hum.rec.anlog 100 UNIT/ML 10 ML VIAL 10 UNIT SUBCUT (20:35)
[2024-09-11] MEDS: traZODone HCL 50 MG TABLET PO (20:37)
[2024-09-11] MEDS: Amitriptyline HCl 50 MG TABLET PO (20:37)
[2024-09-11] MEDS: Donepezil HCl 5 MG TABLET PO (20:37)
[2024-09-11 20:40] LABS: Glucose, Whole Blood 128 mg/dL (60-115)
[2024-09-12] MEDS: oxyCODONE HCl Immed Release 5 MG TABLET PO ×2 (00:15→07:29)
[2024-09-12] MEDS: traZODone HCL 25 MG HALFTAB PO (01:08)
--- NOTE | 2024-09-12 03:14 | PC.NURSE ---
Pt alert and oriented x 1-2, compliant with meds and care. Later of the night pt c/o low back and leg pain, Dr. Grimes was notified, Oxycodone 5 ng po given, pt verbalaized relief. Pt became frequently impulsive after a while, prn Trazodone given, pt slept after, needs met.
[2024-09-12 03:54] VITALS: BP 110/63; PULSE 60; RESP 16; TEMP 36.1; O2SAT 98
[2024-09-12] MEDS: Heparin Sodium,Porcine 5,000 UNIT/ML VIAL 5000 UNIT SUBCUT ×2 (05:43→17:44)
[2024-09-12] MEDS: Levothyroxine Sodium 50 MCG TABLET PO (05:43)
[2024-09-12] MEDS: Insulin Lispro 100 UNIT/ML 3 ML VIAL SUBCUT ×4 (07:28→21:11)
[2024-09-12] MEDS: Haloperidol Lactate Oral Conc 10 MG/5 ML ORAL.CONC PO ×2 (07:29→21:10)
[2024-09-12] MEDS: Thiamine HCL 100 MG TABLET PO (07:29)
[2024-09-12] MEDS: Aspirin Enteric Coated 81 MG TABLET.DR PO (07:30)
[2024-09-12] MEDS: Gabapentin 300 MG CAPSULE PO ×2 (07:30→21:10)
[2024-09-12] MEDS: Atorvastatin Calcium 80 MG TABLET PO (07:30)
[2024-09-12 07:33] LABS: Glucose, Whole Blood 210 mg/dL (60-115)
[2024-09-12 07:53] VITALS: BP 123/64; PULSE 63; RESP 15; TEMP 36; O2SAT 96
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
[2024-09-12 11:53] LABS: Glucose, Whole Blood 252 mg/dL (60-115)
[2024-09-12 15:07] VITALS: BP 120/57; PULSE 75; RESP 14; TEMP 36.3; O2SAT 97
[2024-09-12 16:41] LABS: Glucose, Whole Blood 182 mg/dL (60-115)
--- NOTE | 2024-09-12 17:40 | HO.WOUND ---
Wound Consult: Follow up 69yr old male? admitted to [facility] on 08/15/24 - See progress notes and H&P for detailed history.? Wound consult follow up for Right Foot.? Patient recently transitioned off of Comfort Focused Care - reassessed today for topical wound care recommendations. Right Foot Nonhealing surgical wound remains with yellow slough - moist yellow slough adherent to wound bed. 7 sutures removed from wound bed approved by Provider, Racquel Henderson NP. recommend continue with daily dressing of saline moist gauze. Sacrum and buttocks - MASD improving - no open wounds noted at this time - evidence of previous wound bed resurfaced. recommend continue with foam dressing to aid in pressure redistribution and barrier cream to buttock. No new topical recommendations needed at this time. Will continue to follow. Recommendations: 1. Turn and Reposition every 2 hours and as needed for patient comfort.? Use pillows or wedges to support off loading positions. 2. Off Load all bony prominences with use of pillows and heel boots if needed.? Apply Preventative foams where needed. ? 3. Monitor for incontinence and moisture control, use barrier creams when needed for prevention and treatment. 4. Provide adequate and supplemental nutrition within [employer] care guidelines.? 5. Continue low air loss mattress. 6. When applicable maintain blood glucose levels per Providers order. Right Foot - Elevate heels off of bed surface with pillows. Cleanse with NS moist gauze, Apply skin prep to periwound. Apply saline moist gauze, cover with dry gauze, ABD pad and wrap. Change daily. Sacrum - Apply skin prep allow to dry. Cover with Foam dressing, peel back and assess Q shift and change every 5 days and PRN. Details from previous assessment: Chart review completed - Seen by Dr. Isbell from the General Surgery team. He recommends wet to dry dressing changes daily. Will defer to General surgery team for continued topical recommendations. Will loosely follow along. Right Foot Etiology: Surgical Dehiscence Wound Bed: yellow waldrop slough noted to wound bed - sutures observed in wound bed Drainage / Odor: [place] Edges: ? unattached Tanvi wound: pink erythema Goals of Treatment: ? defer to General Surgery wet to dry dressing Recommendations: 1. Turn and Reposition every 2 hours and as needed for patient comfort.? Use pillows or wedges to support off loading positions. 2. Off Load all bony prominences with use of pillows and heel boots if needed.? Apply Preventative foams where needed. ? 3. Monitor for incontinence and moisture control, use barrier creams when needed for prevention and treatment. 4. Provide adequate and supplemental nutrition.? 5. Order low air loss mattress. 6. When applicable maintain blood glucose levels per Providers order. Right Foot - Elevate heels off of bed surface with pillows. Cleanse with NS moist gauze, Apply skin prep to periwound. Apply saline moist gauze, cover with dry gauze, ABD pad and wrap. Change daily. Sacrum - Apply foam dressing change every 3 days and PRN. Apply barrier cream to buttock to protect from moisture and friction. Re-consult wound care Nurse for wound deterioration or wound changes.
[2024-09-12 20:00] VITALS: BP 103/54; PULSE 72; RESP 18; TEMP 37; O2SAT 97
[2024-09-12 21:02] LABS: Glucose, Whole Blood 185 mg/dL (60-115)
[2024-09-12] MEDS: traZODone HCL 50 MG TABLET PO (21:10)
[2024-09-12] MEDS: Amitriptyline HCl 50 MG TABLET PO (21:10)
[2024-09-12] MEDS: Donepezil HCl 5 MG TABLET PO (21:10)
[2024-09-12] MEDS: Insulin Glargine,Hum.rec.anlog 100 UNIT/ML 10 ML VIAL 10 UNIT SUBCUT (21:12)
[2024-09-13 03:31] VITALS: BP 129/68; PULSE 79; RESP 18; TEMP 36.4; O2SAT 93
[2024-09-13] MEDS: Heparin Sodium,Porcine 5,000 UNIT/ML VIAL 5000 UNIT SUBCUT ×2 (05:44→17:56)
[2024-09-13] MEDS: Levothyroxine Sodium 50 MCG TABLET PO (05:44)
[2024-09-13 07:22] VITALS: BP 108/65; PULSE 71; RESP 16; TEMP 36.3; O2SAT 93
[2024-09-13 07:50] LABS: Glucose, Whole Blood 161 mg/dL (60-115)
[2024-09-13] MEDS: Insulin Lispro 100 UNIT/ML 3 ML VIAL SUBCUT ×4 (08:36→20:48)
[2024-09-13] MEDS: Atorvastatin Calcium 80 MG TABLET PO (08:36)
[2024-09-13] MEDS: Aspirin Enteric Coated 81 MG TABLET.DR PO (08:36)
[2024-09-13] MEDS: Gabapentin 300 MG CAPSULE PO ×2 (08:36→20:48)
[2024-09-13] MEDS: Thiamine HCL 100 MG TABLET PO (08:36)
[2024-09-13] MEDS: Haloperidol Lactate Oral Conc 10 MG/5 ML ORAL.CONC PO ×2 (08:38→20:48)
[2024-09-13] MEDS: oxyCODONE HCl Immed Release 5 MG TABLET PO (09:13)
[2024-09-13 11:22] LABS: Glucose, Whole Blood 199 mg/dL (60-115)
--- NOTE | 2024-09-13 11:59 | MHC.CM.PN ---
EMR REVIEWED. PT REMAINS MEDICALLY CLEARED. [facility] IS FOLLOWING FOR A POSSIBLE BED OFFER. LIAISON WILL BE IN TO SEE PT WHEN ABLE. CM WILL CONTINUE TO FOLLOW
[2024-09-13 15:55] VITALS: BP 101/58; PULSE 78; RESP 16; TEMP 36.5; O2SAT 98
--- NOTE | 2024-09-13 16:19 | MHC.CM.PN ---
DP: PT HAS BEEN ACCEPTED AT [facility] 09/14 FOR LTC PENDING [facility] APPROVAL. CM WILL F/U WITH SPOUSE IN AM TO UPDATE ON PLAN.
[2024-09-13 16:26] LABS: Glucose, Whole Blood 252 mg/dL (60-115)
[2024-09-13 19:40] VITALS: BP 102/58; PULSE 74; RESP 18; TEMP 36.2; O2SAT 99
[2024-09-13 20:25] LABS: Glucose, Whole Blood 177 mg/dL (60-115)
[2024-09-13] MEDS: Amitriptyline HCl 50 MG TABLET PO (20:48)
[2024-09-13] MEDS: traZODone HCL 50 MG TABLET PO (20:48)
[2024-09-13] MEDS: Donepezil HCl 5 MG TABLET PO (20:48)
[2024-09-13] MEDS: Insulin Glargine,Hum.rec.anlog 100 UNIT/ML 10 ML VIAL 15 UNIT SUBCUT (20:49)
[2024-09-14] MEDS: oxyCODONE HCl Immed Release 5 MG TABLET PO (00:12)
[2024-09-14 04:00] VITALS: BP 120/66; PULSE 64; RESP 16; TEMP 36.3; O2SAT 96
[2024-09-14] MEDS: Heparin Sodium,Porcine 5,000 UNIT/ML VIAL 5000 UNIT SUBCUT ×2 (05:33→17:31)
[2024-09-14] MEDS: Levothyroxine Sodium 50 MCG TABLET PO (05:33)
[2024-09-14 07:26] VITALS: BP 127/74; PULSE 69; RESP 18; TEMP 37; O2SAT 99
[2024-09-14 07:45] LABS: Glucose, Whole Blood 142 mg/dL (60-115)
[2024-09-14] MEDS: Aspirin Enteric Coated 81 MG TABLET.DR PO (09:14)
[2024-09-14] MEDS: Gabapentin 300 MG CAPSULE PO ×2 (09:14→21:07)
[2024-09-14] MEDS: Atorvastatin Calcium 80 MG TABLET PO (09:14)
[2024-09-14] MEDS: Thiamine HCL 100 MG TABLET PO (09:15)
[2024-09-14] MEDS: Haloperidol Lactate Oral Conc 10 MG/5 ML ORAL.CONC PO ×2 (09:33→21:08)
[2024-09-14 11:32] LABS: Glucose, Whole Blood 163 mg/dL (60-115)
[2024-09-14] MEDS: Insulin Lispro 100 UNIT/ML 3 ML VIAL SUBCUT ×3 (11:49→21:08)
--- NOTE | 2024-09-14 13:43 | PM.DS ---
DS: Providers Provider Date of Service: 09/15/24 Date of admission: 08/17/24 18:44 Date of discharge: 09/15/24 Primary care physician: Matthew Montano MD Consults: 08/18/24 11:19 Consult to Wound Care Routine Reason for consultation: right foot wound, wound care following 08/23/24 10:04 Consult to Wound Care Routine Reason for consultation: open area coccyx 09/06/24 14:53 Consult to Psychiatry Routine Consulting Provider: [facility] Covering Reason for consultation: capacity ax. Please call/tiger to discuss Attending physician on discharge: Lidia Egan Discharging clinician: Jillian Fam DS: Diagnosis Discharge Diagnosis (1) Major neurocognitive disorder due to Alzheimer's disease: Status: Acute DS: Summary Hospital Course Hospital Course: From H&P on the day of admission 08/09/24 Per ED proivder's note: 69 yo male with PMH of uncontrolled IDDM, hypothyroidism, cognitive impairment, dysphagia, HLD, deperssion, BRENNA, charcot's joint both feet who has been at [facility] I suspect post his amputation - it is unclear where this was done. He reportedly was aggressive and agitated threatening staff at this time his foot wound is infected appearing, he has a dow in place. Due to his agitation EMS gave 10mg IM versed en route. He really isn't able to participate in exam at all. 08/15/2024 Pt had been waiting in the emergency room for placement. And developed a fever, delirium, tachycardia and hypoglycemia and was transferred [facility] the [facility] Blood cultures and urine culture were collected. Chest x-ray negative for any acute findings. X-ray of right foot was negative for osteomyelitis but infection suspected patient was started on cefepime and vanco. Patient had to be placed in soft wrist restraints in the emergency room as patient was pulling on Dow catheter. Patient is currently not able to swallow medications or food or fluids. Emergency room asked for hospitalist to admit patient for sepsis. This science writer was able to speak to patient's spouse by phone and learned that patient had surgery at [facility] approximately 4 weeks prior. Patient had already been in care 1 for rehabilitation noting skin changes in the right toes and patient was no longer able to ambulate and required rehabilitation. Patient developed a urinary tract infection, influenza and COVID while at [facility] and was transferred back to [facility] for uncontrolled diabetes. Patient's toes on right foot developed dry gangrene and patient required surgical intervention for amputation. Patient at that time had stated he did not want any further surgeries for future problems. Patient went back to [facility] for rehabilitation purposes and on August 09 developed worsening agitation and aggressiveness which prompted transfer to emergency room at [facility]. Plan was made with case management to find alternative placement as patient initially presented medically stable and was started on Macrodantin for a positive UA. Urine culture grew Enterobacter and E coli, both susceptible to Macrodantin. Patient has had a chronic Dow placement since May of 2023 due to complications of urinary retention. The catheter was being changed every 30 days prior to hospital admission. Patient has history of UTIs in the past. Patient has been diagnosed with Alzheimer's. Patient is being admitted for sepsis, delirium, suspected infection of right toe amputation site and/or UTI. Patient completed Macrodantin therapy and repeat UA today indicates possible resolve of urinary tract infection diagnosed on August 09. Wound care consult ordered along with speech therapy consult as patient can not currently swallow pills or eat food or drink fluids. Patient noted to be hypoglycemic and D5 1/2 normal saline started. Lantus is held. Sliding scale insulin is every 6 hours. Tylenol suppository provided for lowering of temperature. Plan of care reviewed with healthcare proxy who is patient's spouse and spouse would appreciate daily updates by phone when possible. 69 yo male with PMH of uncontrolled IDDM, hypothyroidism, cognitive impairment/ Alzheimer's, dysphagia, HLD, depression, BRENNA, charcot's joint both feet, chronic urinary retention with chronic Dow placement since May of 2023, neuropathy, hypothyroidism, UTI admitted for sepsis, delirium status post right toe amputation early June 2024 at [facility]. Patient had been undergoing rehab at [facility] and in the interim developed some significant agitation and aggressiveness and was transferred to [facility] on August 09 and diagnosed with UTI. Patient grew Enterobacter and E coli and was treated with Macrodantin and in the interim remained in the emergency room awaiting placement as patient was medically stable. August 15 patient developed fever, tachycardia, delirium and worsening altered mental status that required soft wrist restraints. UA appears negative, blood in urine culture showed no growth, Likely sepsis due to COVID infection/infection at right toe amputation site, X-ray negative for osteomyelitis. Patient unable to provide meaningful history, case discussed with patient's healthcare proxy due to patient's aggressive behavior declining to take medications, including insulin refusing lab draws decreased by mouth intake and multiple comorbidities decided hospice MOLST form signed, patient is now being admitted under GI IP hospice for management of aggressive behavior. Patient initially treated under GIP Hospice with medication for pain, anxiety. Subsequently his status improved and his baseline medications were resumed. His agitation is significantly improved and placement was pursued. Patient will be transferred to SNF in stable condition. Alzheimer's dementia with mood disorder Psychiatry following Aricept 5 mg at bedtime and switch 0.5 mg of Haldol to BID Maintain sleep-wake cycle Insulin-dependent type 2 diabetes Sliding scale insulin. Lantus resumed at lower dose Hypothyroidism Continue levothyroxine Chronic pain disorder with diabetic polyneuropathy Continue oxycodone, gabapentin Charcot foot S/p right MTA wound care Right Foot - Elevate heels off of bed surface with pillows. Cleanse with NS moist gauze, Apply skin prep to periwound. Apply saline moist gauze, cover with dry gauze, ABD pad and wrap. Change daily. COVID 19 infection with acute metabolic encephapathy resolved Alzheimers as above Sacrum MASD; improving - Apply foam dressing change every 3 days and PRN. Apply barrier cream to buttock to protect from moisture and friction. Anticipate less than 30 day stay at SNF Time Attestation Discharge Coordination Time (in mins): 35 Quality: Safe Use of Opioids Does Pt have an Active Cancer Diagnosis on the Problem List?: No Quality: Stroke Does the patient have a stroke diagnosis?: No Physical Exam Vital Signs: Vital Signs: Last Vital Signs Temp 98.6 F 09/14/24 07:26 Pulse 69 09/14/24 07:26 Resp 18 09/14/24 07:26 BP 127/74 09/14/24 07:26 Pulse Ox 99 09/14/24 07:26 O2 Del Method Room Air 09/14/24 07:26 BMI result Body Mass Index 28.9 Const: General: cooperative, comfortable, no acute distress, alert and awake Nutritional Appearance: average body habitus Orientation/consciousness: oriented to person Resp: Effort & Inspection: normal respiratory effort, able to speak in complete sentences, no respiratory distress and no use of accessory muscles Cardio: Rate: regular rate Neuro: General: oriented to person, moves all extremities and CN's II-XI intact bilaterally Cognition (Neuro): abnormal cognition Extrem: Other: right foot wrapped c/d/i Psych: Other: impaired insight DS: Data Data Completed and Pending Labs on day of discharge: Laboratory Results - last 24 hr 09/13/24 09/13/24 09/14/24 16:18 20:20 07:28 POC Glucose 252 H 177 H 142 H 09/14/24 11:21 POC Glucose 163 H Discharge Plan Discharge Patient Disposition: [facility] Discharge Diagnosis: dementia covid 19 right foot infection Referrals: [facility] [Outside] - 1 Week (TRANSFER FOR ASSISTED CARE) Matthew Montano MD [Primary Care Provider] - 1 Week Discharge Medications: New donepezil 5 mg Tablet 5 mg PO BEDTIME Qty: 30 0RF insulin glargine [Lantus U-100 Insulin] 100 unit/mL Solution 15 unit subcut BEDTIME Qty: 10 0RF gabapentin 300 mg Capsule 300 mg PO BID Qty: 30 0RF haloperidol lactate 2 mg/mL Concentrate 0.5 mg PO BID Qty: 15 0RF insulin lispro [Admelog U-100 Insulin lispro] 100 unit/mL Solution See Protocol subcut QIDACHS Qty: 10 0RF Protocol: Insulin Correction Scale Less than or equal to 110 ---- Give (units): 0 111 to 150 Give (units): 0 151 to 200 Give (units): 2 201 to 250 Give (units): 4 251 to 300 Give (units): 6 301 to 350 Give (units): 8 Greater than 350 Give (units): 10 Call if Blood Glucose > : 350 trazodone 50 mg tablet 25 mg PO BID PRN (Reason: agitation) Qty: 10 0RF Continued levothyroxine 50 mcg tablet 50 mcg PO DAILY@0600 rosuvastatin 20 mg tablet 20 mg PO BEDTIME sennosides [senna] 8.6 mg Tablet 8.6 mg PO DAILY PRN (Reason: Constipation) thiamine HCl (vitamin B1) 100 mg Tablet 100 mg PO DAILY aspirin 81 mg Tablet,Delayed Release (Dr/Ec) 81 mg PO DAILY amitriptyline 50 mg tablet 50 mg PO BEDTIME bisacodyl 10 mg Suppository 10 mg MO DAILY PRN (Reason: Constipation) ferrous sulfate 325 mg (65 mg iron) Tablet 325 mg PO DAILY Fleet Enema 19-7 gram/118 mL Enema 118 ml MO DAILY PRN (Reason: Constipation) Rx Instructions: IF BISACODYL SUPPOSITRY IS INEFFECTIVE oxycodone 5 mg Tablet 5 mg PO Q6H PRN (Reason: Pain) Qty: 10 0RF trazodone 50 mg Tablet 50 mg PO BEDTIME Qty: 30 0RF acetaminophen 325 mg Tablet 650 mg PO Q6H PRN (Reason: Pain, Mild 1-3,Fever,Headache) Qty: 30 0RF Discontinued meloxicam 15 mg tablet 15 mg PO DAILY gabapentin 800 mg tablet 800 mg PO BID lamotrigine 100 mg tablet 100 mg PO BID bupropion HCl 300 mg tablet extended release 24 hr 300 mg PO DAILY insulin glargine [Lantus Solostar U-100 Insulin] 100 unit/mL (3 mL) insulin pen 26 unit subcut BEDTIME Tussin Cough (DM only) 15 mg/5 mL Liquid 30 mg PO Q4H PRN (Reason: Cough) calcium carbonate [Calcium 600] 600 mg calcium (1,500 mg) Tablet 600 mg PO BID miconazole nitrate 2 % Ointment 1 appl TOPICAL BID PRN (Reason: REDNESS ON SCROTUM) cholecalciferol (vitamin D3) [Vitamin D3] 50 mcg (2,000 unit) Tablet 50 mcg PO BID Discharge Orders: Discharge Order (Routine); Ordered 09/15/24 Ordered By: Jillian Fam Activity on Discharge: As tolerated Stand Alone Forms: Patient Portal Discharge page Print Language: Kinyarwanda Care Plan Goals: see below Health Concerns: Alzheimer's dementia Right foot wound Plan of Treatment: Wound care as below Assessment: Right Foot - Elevate heels off of bed surface with pillows. Cleanse with NS moist gauze, Apply skin prep to periwound. Apply saline moist gauze, cover with dry gauze, ABD pad and wrap. Change daily. Sacrum - Apply foam dressing change every 3 days and PRN. Apply barrier cream to buttock to protect from moisture and friction.
--- NOTE | 2024-09-14 14:34 | MHC.CM.PN ---
Addendum entered by Ynes Boothe 09/14/24 15:19: PT HAS BEEN PRE BOOKED TO GO TO [facility] AT 11 AM 09/15. CENTER CONTINUES TO AWAIT FINAL APPROVAL FROM [facility] FOR ADMISSION. PROVIDER AND SPOUSE UPDATED ON PLAN. Original Note: CM SPOKE WITH /HCP PRITESH WHO IS IN AGREEMENT WITH PLAN/BED OFFER FROM [facility] FOR LTC. CM IS AWAITING [facility] APPROVAL FOR ADMISSION.
[2024-09-14 15:52] VITALS: BP 136/73; PULSE 68; RESP 16; TEMP 36.8; O2SAT 99
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
[2024-09-14 16:47] LABS: Glucose, Whole Blood 206 mg/dL (60-115)
[2024-09-14 20:00] VITALS: BP 130/60; PULSE 69; RESP 18; TEMP 36.4; O2SAT 92
[2024-09-14 20:08] LABS: Glucose, Whole Blood 189 mg/dL (60-115)
[2024-09-14] MEDS: Donepezil HCl 5 MG TABLET PO (21:07)
[2024-09-14] MEDS: traZODone HCL 50 MG TABLET PO (21:07)
[2024-09-14] MEDS: Amitriptyline HCl 50 MG TABLET PO (21:07)
[2024-09-14] MEDS: Insulin Glargine,Hum.rec.anlog 100 UNIT/ML 10 ML VIAL 15 UNIT SUBCUT (21:08)
[2024-09-15 03:31] VITALS: BP 114/57; PULSE 70; RESP 18; TEMP 36.3; O2SAT 96
[2024-09-15] MEDS: Heparin Sodium,Porcine 5,000 UNIT/ML VIAL 5000 UNIT SUBCUT (05:52)
[2024-09-15] MEDS: Levothyroxine Sodium 50 MCG TABLET PO (05:52)
[2024-09-15] MEDS: Gabapentin 300 MG CAPSULE PO (07:18)
[2024-09-15] MEDS: Aspirin Enteric Coated 81 MG TABLET.DR PO (07:18)
[2024-09-15] MEDS: Thiamine HCL 100 MG TABLET PO (07:18)
[2024-09-15] MEDS: oxyCODONE HCl Immed Release 5 MG TABLET PO ×2 (07:18→10:50)
[2024-09-15] MEDS: Atorvastatin Calcium 80 MG TABLET PO (07:18)
[2024-09-15] MEDS: Haloperidol Lactate Oral Conc 10 MG/5 ML ORAL.CONC PO (07:19)
[2024-09-15 07:28] VITALS: BP 140/74; PULSE 62; RESP 16; TEMP 36.1; O2SAT 99
[2024-09-15 07:34] LABS: Glucose, Whole Blood 168 mg/dL (60-115)
[2024-09-15] MEDS: Insulin Lispro 100 UNIT/ML 3 ML VIAL SUBCUT (07:36)
--- NOTE | 2024-09-15 08:41 | MHC.CM.PN ---
Addendum entered by Michelle Moore 09/15/24 09:57: ARELIS RECEIVED A MESSAGE FROM TESS AT [facility] WHO INDICATED THE MDS WOULD BE APPROVED AND SHE WOULD CALL THE SNF TO INFORM THEM CM SPOKE TO PTS WHO WILL MAKE ARRANGEMENTS TO SIGN PT INTO THE SNF THIS AFTERNOON Original Note: PT WILL DC TO [facility] TODAY AT 1100 HOURS VIA [facility]
[2024-09-15 10:47] VITALS: BP 153/71; PULSE 68; RESP 18; TEMP 36.4; O2SAT 98
== END 2024-09-15 11:01 | DRG 951 ==
LOC: HO.IMC 08-26 07:07 → HO.S3 08-26 17:09
PROVIDERS: Nurse Practitioner Acute Care; Physician Assistant; Admitting Provider Hospitalist; PCP Internal Medicine; Visit Provider Physician Assistant Medical
DX: Z51.5 Encounter for palliative care (principal); A41.89 Other specified sepsis; U07.1 COVID-19; G93.41 Metabolic encephalopathy; F05 Delirium due to known physiological condition; T87.43 Infection of amputation stump, right lower extremity; F02.818 Dementia in other diseases classified elsewhere, unspecified severity, with other behavioral disturbance; E11.610 Type 2 diabetes mellitus with diabetic neuropathic arthropathy; G89.29 Other chronic pain; E11.42 Type 2 diabetes mellitus with diabetic polyneuropathy; R13.10 Dysphagia, unspecified; G30.9 Alzheimer's disease, unspecified; L24.A9 Irritant contact dermatitis due friction or contact with other specified body fluids; Y83.5 Amputation of limb(s) as the cause of abnormal reaction of the patient, or of later complication, without mention of misadventure at the time of the procedure; E03.9 Hypothyroidism, unspecified; Z87.440 Personal history of urinary (tract) infections; Z79.890 Hormone replacement therapy; Z79.899 Other long term (current) drug therapy
CPT/HCPCS: 36415; 80048; 82947; 85027; 92526; 97162; 97166; 97530; 97535; J1630; J1644; J2060; J2270; J2405

== ENCOUNTER → 2024-08-17 18:44 | Outpatient (BNV) | payer OTHER, SELFPAY | PROVIDERS: Admitting Provider Hospitalist; PCP Internal Medicine; Visit Provider Social Worker | DX: G30.9 Alzheimer's disease, unspecified (principal); F02.80 Dementia in other diseases classified elsewhere, unspecified severity, without behavioral disturbance, psychotic disturbance, mood disturbance, and anxiety | CPT/HCPCS: 99232 ==